=== PATIENT | female | born 1945 | race Caucasian/White ===

== ENCOUNTER 2019-05-04 11:49 | Inpatient (IN) ==
--- NOTE | 2019-05-04 13:15 | Emergency Department Note ---
Disposition Clinical Impression: Hematoma of left lower extremity Qualifiers: Encounter type: initial encounter Qualified Code(s): S80.12XA - Contusion of left lower leg, initial encounter Traumatic hematoma of left upper arm Qualifiers: Encounter type: initial encounter Qualified Code(s): S40.022A - Contusion of left upper arm, initial encounter Disposition: Admitted As Inpatient Condition: Good Referrals: Bárbara Mcneal [employer] [Primary Care Provider] - Forms: ED Satisfaction Letter, Work/School Release Time of Disposition: 15:17 General Adult HPI - General Chief complaint: ED General Medical Stated complaint: hematoma Time Seen by Provider: 05/04/19 12:12 Source: patient Limitations: no limitations Nursing Notes Reviewed: Yes Vital Signs Reviewed: Yes - History of Present Illness HPI Narrative: 74-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 Patient did not strike her head neck. Patient is not on blood thinners. Patient was seen in the wound care clinic today by the surgeon Dr. Chen. He wanted the patient admitted to the hospitalist service so he could perform debridement under anesthesia tomorrow in the operating room. We requested to do preop labs EKG chest x-ray. Patient offers no other complaints other than just feeling some slight discomfort in her left lower extremity and her left upper extremity. She denies headache, shortness breath, photophobia, fever, chills, chest pain, diarrhea, dysuria. Pain Scale: 5 - Related Data Home Medications Medication Instructions Recorded Confirmed Benzonatate [Tessalon] 100 mg PO BID 01/13/19 01/13/19 Bisoprolol Fumarate [Zebeta] 5 mg PO BID 01/13/19 01/13/19 DULoxetine [Cymbalta] 30 mg PO BID 01/13/19 01/13/19 Famotidine/Ca Carb/Mag Hydrox 1 each PO DAILY 01/13/19 01/13/19 [Pepcid Complete Tablet Chew] Fluticasone Propionate [Flovent 2 puff IH BID 01/13/19 01/13/19 Hfa] Furosemide [Lasix] 20 mg PO DAILY 01/13/19 01/13/19 Loratadine [Allergy Relief] 10 mg PO DAILY 01/13/19 01/13/19 Polyethylene Glycol 3350 [MiraLAX] 17 gm PO DAILY PRN 01/13/19 01/13/19 Vitamin D3 1,000 units PO HS 01/13/19 01/13/19 Previous Rx's Medication Instructions Recorded Collagenase Oint [Santyl] 0 gm TP DAILY #1 oint...g. 01/14/19 Gauze Bandage [Kerlix] 1 each TP DAILY #30 sponge 01/14/19 Sodium Chloride [Saline Wound Wash] 210 ml TP AD #1 spray 01/14/19 Allergies Allergy/AdvReac Type Severity Reaction Status Date / Time codeine AdvReac Headache Verified 01/12/19 15:46 meperidine [From Demerol] AdvReac Vomiting Verified 01/12/19 15:46 roses Allergy See Uncoded 01/12/19 15:46 Comments All systems ED: reviewed and negative except as stated. Musculoskeletal: Reports: myalgia Past Medical History - Past Medical History Attestation: Yes The following information was validated with the patient. Source: patient Medical history: Reports: asthma, GERD, hypertension Surgical history: Reports: appendectomy, cholecystectomy, hysterectomy Psychiatric history: Reports: no psych history - Social History Smoking Status: Never smoker Smokeless Tobacco Status: No Alcohol use: Reports: rarely Drug use: Reports: none Physical Exam - General Limitations: no limitations General appearance: alert - Head Head exam: atraumatic, normocephalic - Eye Eye exam: Present: normal appearance, PERRL - ENT ENT exam: normal exam, normal oropharynx - Neck Neck exam: Present: normal inspection, full ROM - Chest Chest inspection: Present: normal inspection, symmetric chest wall rise - Respiratory Respiratory exam: Present: normal lung sounds bilaterally - Cardiovascular Cardiovascular exam: Present: regular rate, normal rhythm - Abdominal Exam Abdominal exam: Present: soft, Non-Tender - Extremities Exam Extremities exam: Present: normal capillary refill, other (Patient has cleaning and Curlex holding the dressings in place of her left upper extremity and left lower extremity that was just evaluated less than an hour ago by Dr. Chen in the wound care clinic. Since the patient is getting surgical debridement tomorrow we did not remove the dressings to disturb the wounds) - Expanded Lower Extremity Exam Neurovascular/Tendon exam: Present: normal capillary refill Gait: not tested/not observed - Back Exam Back exam: Present: normal inspection, full ROM - Neurological Exam Neurological exam: Present: alert, oriented X3 - Psychiatric Psychiatric exam: Present: normal affect, normal mood - Skin Skin exam: Present: warm, dry, other (Patient has a large hematoma in the left lower extremity tibial and calf region and the left upper extremity) Course - Reevaluation(s) Reevaluation #1: Patient's physical examination other than the left upper and lower extremity his baseline. Patient get preop screening labs EKG shows sinus rhythm no acute changes. Meal tray being ordered. We will then contact the hospitalist admit the patient with surgical consultation by Dr. Chen. Time: 13:32 Reevaluation #2: Patient's ED workup is complete. CBC chemistry panel within normal limits. Urinalysis essentially negative coags at baseline. Discussed case with the hospitalist who accepted patient for admission. They asked for seat K which I added. Orders were placed. Patient was so informed. Awaiting admission. Time: 15:15 Vital Signs Temperature 98.0 F 05/04/19 11:55 Pulse Rate 67 05/04/19 11:55 Respiratory Rate 16 05/04/19 11:55 Blood Pressure 111/72 05/04/19 11:55 O2 Sat by Pulse Oximetry 98 05/04/19 11:55 Temperature 98.0 F 05/04/19 11:55 Pulse Rate 67 05/04/19 11:55 Respiratory Rate 16 05/04/19 11:55 Blood Pressure 111/72 05/04/19 11:55 O2 Sat by Pulse Oximetry 98 05/04/19 11:55 Oxygen Delivery Oxygen Delivery Room Air Medical Decision Making - Medical Records Medical records reviewed: Yes I reviewed the patient's medical records. - Lab Data Lab results reviewed: Yes I reviewed the patient's lab results. Result diagrams: 05/04/19 13:14 05/04/19 13:14 Lab Results 05/04/19 05/04/19 05/04/19 Range/Units 13:14 13:14 13:14 WBC 8.5 (4.3-11.1) K/mcL RBC 3.50 L (3.82-4.97) M/mcL Hgb 10.1 L (11.5-15.4) g/dL Hct 32.2 L (35.3-44.9) % MCV 92.0 (83.0-100.0) fL MCH 28.9 (28.0-33.3) pg MCHC 31.4 L (31.6-35.5) g/dL RDW 14.3 (11.5-14.5) % Plt Count 410 H (140-400) K/mcL MPV 9.8 (9.4-12.4) fL Immature Gran % 1.5 (0-4) % Seg Neutrophils % 72.6 % Lymphocytes % 11.4 % Monocytes % 12.4 % Eosinophils % 1.4 % Basophils % 0.7 % Neutrophils # 6.1 (1.6-8.9) K/mcL Lymphocytes # 1.0 (0.6-4.6) K/mcL Monocytes # 1.1 (0.0-1.3) K/mcL Eosinophils # 0.1 (0.0-0.6) K/mcL Basophils # 0.1 (0.0-0.2) K/mcL PT 13.3 H (9.4-12.1) Seconds INR 1.2 APTT 33.5 (26.0-36.0) Seconds Sodium 138 (136-145) mEq/L Potassium 3.8 (3.5-5.1) mEq/L Chloride 103 (98-107) mEq/L Carbon Dioxide 29 (23-29) mEq/L BUN 10 (8-23) mg/dL Creatinine 0.46 L (0.60-1.20) mg/dL Est GFR ( Amer) > 60 (> 60) Est GFR (Non-Af Amer) > 60 (> 60) BUN/Creatinine Ratio 22 (6-26) Glucose 94 (70-105) mg/dL Calculated Osmolality 285 (280-300) Calcium 9.3 (8.6-10.3) mg/dL Troponin I < 0.03 (< 0.04) ng/mL - Radiology Data Radiology results reviewed: Yes I reviewed the patient's radiology results. - EKG Data EKG #1 EKG attestation: Yes I reviewed and interpreted this EKG. EKG results narrative: Twelve-lead EKG interpreted without the benefit Cardiologic music library assistant shows sinus rhythm at 75 bpm. Normal [place], QRS, QT corrected. No acute ischemic changes are noted. No old EKG available for comparison.
[2019-05-04 13:29] LABS: Basophils # 0.1 K/mcL (0.0-0.2); Basophils % 0.7 %; Eosinophils # 0.1 K/mcL (0.0-0.6); Eosinophils % 1.4 %; Hematocrit 32.2 % (35.3-44.9); Hemoglobin 10.1 g/dL (11.5-15.4); Immature Granulocytes % 1.5 % (0-4); Lymphocytes % 11.4 %; Mean Corpuscular HGB Conc 31.4 g/dL (31.6-35.5); Mean Corpuscular Hemoglobin 28.9 pg (28.0-33.3); Mean Platelet Volume 9.8 fL (9.4-12.4); Monocytes # 1.1 K/mcL (0.0-1.3); Monocytes % 12.4 %; Neutrophils # 6.1 K/mcL (1.6-8.9); Platelet Count 410 K/mcL (140-400); Red Cell Distribution Width 14.3 % (11.5-14.5); Segmented Neutrophils % 72.6 %; White Blood Count 8.5 K/mcL (4.3-11.1)
[2019-05-04 13:40] LABS: INR 1.2; Prothrombin Time 13.3 Seconds (9.4-12.1)
[2019-05-04 13:43] LABS: Activated Partial Thrombo Time 33.5 Seconds (26.0-36.0)
[2019-05-04 13:54] LABS: BUN/Creatinine Ratio 22 (6-26); Blood Urea Nitrogen 10 mg/dL (8-23); Calcium 9.3 mg/dL (8.6-10.3); Carbon Dioxide 29 mEq/L (23-29); Chloride 103 mEq/L (98-107); Glucose 94 mg/dL (70-105); Osmolality,Calculated 285 (280-300); Potassium 3.8 mEq/L (3.5-5.1); Sodium 138 mEq/L (136-145); Troponin I < 0.03 ng/mL (< 0.04); eGFR For African Americans > 60 (> 60); eGFR For Non-African Americans > 60 (> 60)
[2019-05-04 15:04] LABS: Bilirubin,Urine Small (Negative); Blood,Urine Negative (Negative); Clarity,Urine Turbid (Clear); Color,Urine Dark Yellow (Yellow); Glucose,Urine (UA) Normal (Normal); Ketones,Urine Trace mg/dL (Negative); Leukocyte Esterase,Urine Moderate (Negative); Nitrite,Urine Negative (Negative); Protein,Urine Trace mg/dL (Neg-Trace); Specific Gravity,Urine 1.027 (1.010-1.025); Urobilinogen,Urine Normal (Normal)
[2019-05-04 15:08] LABS: Bacteria,Urine None Seen per hpf (None-Few); Hyaline Casts,Urine Moderate per lpf (None-Few); Squamous Epithelial Cell,Urine Many per lpf (None-Few); WBC,Urine 15-30 per hpf (0-3)
[2019-05-04 15:27] LABS: Creatine Kinase 24 Units/L (30-223)
[2019-05-04 15:31] LABS: Mucus,Urine Moderate (Few)
[2019-05-04 15:32] LABS: Calcium Oxalate Crystals,Urine Present
[2019-05-04] MEDS ORDERED: Ondansetron 4 MG/2 ML VIAL IVP PRN (16:47)
[2019-05-04] MEDS ORDERED: Naloxone 0.4 MG/ML INJ IVP PRN (16:47)
--- NOTE | 2019-05-04 17:47 | General Surg History&Physical ---
Date of Encounter: 05/05/19 Time of Encounter: 17:43 Assessment and Plan (1) Hematoma of left lower extremity Current Visit: Yes Status: Acute 74F with LLE hematoma 2/2 traumatic fall with necroti skin; needs evacuation of hematoma and adequate pain control while doing so to ensure good wound healing; NPO IVF plan for OR on 05/05 The assessment and plan as outlined above was discussed with the patient and/or family members who expressed understanding and agreement. All questions were answered. Qualifiers: Encounter type: initial encounter Qualified Code(s): S80.12XA - Contusion of left lower leg, initial encounter History of Present Illness Chief complaint: left lower extremity wound HPI: Ms. Menon is a 74 year old female well known to me with poor balance/neurological issue which makes her prone to fall presents with a new left lower extremity wound after fall with large hematoma. The swelling is decreased, but there is concern for how well her wound will heal with a retained hematoma; There is significant discomfort, but no systemic symptoms or evidence of infection. The decision was made for admission with plans for excisional debridement, evacuation of hematoma, and washout of wound. Past Med Surg Social Fam HX - Past Medical History Medical history: asthma, GERD, hypertension Additional medical history: Monoclonal protein Psychiatric history: no psych history - Past Surgical History Surgical History: appendectomy, cholecystectomy, hysterectomy Additional surgical history: thorasic surgery - Social History Smoking Status: Never smoker Smokeless Tobacco Status: No Alcohol use: rarely Drug use: none - Family History Mother Living Status: Still Living Hx Family Cardiac Disorders: Yes Hx Family GI Disorders: Yes Hx Family Musculoskeletal Disorders: Yes Hx Family Neuromuscular Disorders: Yes Father Living Status: Hx Family Cardiac Disorders: Yes Medications and Allergies Benzonatate [Tessalon] 100 mg PO BID PRN 01/13/19 [History] Bisoprolol Fumarate [Zebeta] 5 mg PO BID 01/13/19 [History] Cholecalciferol (Vitamin D3) [Vitamin D3] 1,000 units PO HS 01/13/19 [History] DULoxetine [Cymbalta] 30 mg PO BID 01/13/19 [History] Famotidine/Ca Carb/Mag Hydrox [Pepcid Complete Tablet Chew] 1 each PO QPM PRN 01/13/19 [History] Fluticasone Propionate [Flovent Hfa] 2 puff IH BID 01/13/19 [History] Furosemide [Lasix] 20 mg PO QAM 01/13/19 [History] Loratadine [Allergy Relief] 10 mg PO QPM 01/13/19 [History] Polyethylene Glycol 3350 [MiraLAX] 17 gm PO DAILY PRN 01/13/19 [History] Sodium Chloride [Saline Wound Wash] 210 ml TP AD #1 spray 01/14/19 [Rx] Fluticasone Propionate Nasal [Flonase] 2 spray NS BID 05/04/19 [History] Levalbuterol Tartrate [Levalbuterol Tartrate Hfa] 2 puff PO Q4H PRN 05/04/19 [History] Ondansetron HCl [Zofran] 4 mg PO Q6H PRN 05/04/19 [History] Allergy/AdvReac Type Severity Reaction Status Date / Time codeine AdvReac Headache Verified 01/12/19 15:46 meperidine [From Demerol] AdvReac Vomiting Verified 01/12/19 15:46 roses Allergy See Uncoded 01/12/19 15:46 Comments Review of Systems All systems PM: 12 point ROS negatie besides HPI findings; General Surgery Exam Initial Vital Signs Temp Pulse Resp BP Pulse Ox 98.0 F 67 16 111/72 98 05/04/19 11:55 05/04/19 11:55 05/04/19 11:55 05/04/19 11:55 05/04/19 11:55 - General physical appearance no distress - Eyes PERRL, normal ocular movement - ENT normocephalic - Respiratory normal expansion, normal respiratory effort - Cardiovascular Cardiovascular exam: Present: RRR - Abdomen Abdomen general surgery: Present: soft, non tender - Integumentary Integumentary general surgery: Present: warm and dry, other (hematoma; necrotic tissue, necrotic skin; ) - Neurologic Present: CN 2-12 grossly intact - Musculoskeletal Present: normal posture - Psychiatric Psychiatric general surgery: Present: A&Ox3 Results - Labs 05/05/19 02:17 05/05/19 02:17 Abnormal lab results RBC 3.50 M/mcL (3.82-4.97) L 05/04/19 13:14 Hgb 10.1 g/dL (11.5-15.4) L 05/04/19 13:14 Hct 32.2 % (35.3-44.9) L 05/04/19 13:14 MCHC 31.4 g/dL (31.6-35.5) L 05/04/19 13:14 Plt Count 410 K/mcL (140-400) H 05/04/19 13:14 PT 13.3 Seconds (9.4-12.1) H 05/04/19 13:14 0.46 mg/dL (0.60-1.20) L 05/04/19 13:14 24 Units/L (30-223) L 05/04/19 13:14 Turbid (Clear) A 05/04/19 14:32 Ur Specific [place] 1.027 (1.010-1.025) H 05/04/19 14:32 Trace mg/dL (Negative) H 05/04/19 14:32 Small (Negative) H 05/04/19 14:32 Ur Leukocyte Esterase Moderate (Negative) H 05/04/19 14:32 15-30 per hpf (0-3) H 05/04/19 14:32 Ur Squamous Epith Cells Many per lpf (None-Few) H 05/04/19 14:32 Hyaline Casts Moderate per lpf (None-Few) H 05/04/19 14:32 Moderate (Few) H 05/04/19 14:32 Diabetes panel 05/04/19 Range/Units 13:14 Sodium 138 (136-145) mEq/L Potassium 3.8 (3.5-5.1) mEq/L Chloride 103 (98-107) mEq/L Carbon Dioxide 29 (23-29) mEq/L BUN 10 (8-23) mg/dL Creatinine 0.46 L (0.60-1.20) mg/dL Glucose 94 (70-105) mg/dL Calcium 9.3 (8.6-10.3) mg/dL Calcium panel 05/04/19 Range/Units 13:14 Calcium 9.3 (8.6-10.3) mg/dL Pituitary panel 05/04/19 Range/Units 13:14 Sodium 138 (136-145) mEq/L Potassium 3.8 (3.5-5.1) mEq/L Chloride 103 (98-107) mEq/L Carbon Dioxide 29 (23-29) mEq/L BUN 10 (8-23) mg/dL Creatinine 0.46 L (0.60-1.20) mg/dL Glucose 94 (70-105) mg/dL Calcium 9.3 (8.6-10.3) mg/dL Adrenal panel 05/04/19 Range/Units 13:14 Sodium 138 (136-145) mEq/L Potassium 3.8 (3.5-5.1) mEq/L Chloride 103 (98-107) mEq/L Carbon Dioxide 29 (23-29) mEq/L BUN 10 (8-23) mg/dL Creatinine 0.46 L (0.60-1.20) mg/dL Glucose 94 (70-105) mg/dL Calcium 9.3 (8.6-10.3) mg/dL All other labs normal.
--- NOTE | 2019-05-04 17:49 | Internal Med History&Physical ---
Date of Encounter: 05/04/19 Time of Encounter: 17:42 Internal Medicine - H&P: HPI Chief complaint: Falls hematoma to left leg Admitted From: Emergency Dept Plans for Post Hospital Care: Home History of present illness: Ms. Menon is a 74 year old female past medical history of monoclonal antibody deficiency- follows hematology and neurology at [facility] as well as hypertension GERD asthma and PVCs. Patient has been experiencing falls sustained hematoma on her left upper extremity and her left lower extremity. She did not strike her head or losing consciousness she is not on any blood thinners. She has frequent falls due to neuropathy. She was seen in the wound care clinic today and Dr. Estrella advised to be admitted to the hospital in order to perform debridement under anesthesia tomorrow and operating room. Patient states that she uses walker Rollator and a scooter to get around. She is also being established with physical therapy. We will obtain preop labs EKG chest x-ray. She does have a cardiac history she states she did have PVCs and takes beta teresa -her asthma is well-controlled her surgical cardiac risks index is 0. She is currently hemodynamically stable at this time Past Med Surg Social Fam HX - Past Medical History Medical history: asthma, GERD, hypertension Additional medical history: Monoclonal protein Psychiatric history: no psych history - Past Surgical History Surgical History: appendectomy, cholecystectomy, hysterectomy Additional surgical history: thorasic surgery - Social History Smoking Status: Never smoker Smokeless Tobacco Status: No Alcohol use: rarely Drug use: none - Family History Mother Living Status: Still Living Hx Family Cardiac Disorders: Yes Hx Family GI Disorders: Yes Hx Family Musculoskeletal Disorders: Yes Hx Family Neuromuscular Disorders: Yes Father Living Status: Hx Family Cardiac Disorders: Yes Internal Medicine - H&P: Meds Benzonatate [Tessalon] 100 mg PO BID 01/13/19 [History] Bisoprolol Fumarate [Zebeta] 5 mg PO BID 01/13/19 [History] DULoxetine [Cymbalta] 30 mg PO BID 01/13/19 [History] Famotidine/Ca Carb/Mag Hydrox [Pepcid Complete Tablet Chew] 1 each PO DAILY 01/13/19 [History] Fluticasone Propionate [Flovent Hfa] 2 puff IH BID 01/13/19 [History] Furosemide [Lasix] 20 mg PO DAILY 01/13/19 [History] Loratadine [Allergy Relief] 10 mg PO DAILY 01/13/19 [History] Polyethylene Glycol 3350 [MiraLAX] 17 gm PO DAILY PRN 01/13/19 [History] Vitamin D3 1,000 units PO HS 01/13/19 [History] Gauze Bandage [Kerlix] 1 each TP DAILY #30 sponge 01/14/19 [Rx] Sodium Chloride [Saline Wound Wash] 210 ml TP AD #1 spray 01/14/19 [Rx] Allergy/AdvReac Type Severity Reaction Status Date / Time codeine AdvReac Headache Verified 01/12/19 15:46 meperidine [From Demerol] AdvReac Vomiting Verified 01/12/19 15:46 roses Allergy See Uncoded 01/12/19 15:46 Comments All Systems PM: A 10-system review of systems was performed and is negative for pertinent findings except as documented above in the HPI. - Constitutional Constitutional: no chills, no fever(s), no night sweats - EENT Eyes: no change in vision, no discharge, no pain, no photophobia Ears: no ear discharge, no ear pain, no tinnitus Nose, mouth and throat: no dysphagia, no nasal discharge, no neck pain, no sore throat - Cardiovascular Cardiovascular ROS IM: no chest pain, no diaphoresis, no dyspnea, no lightheadedness, no palpitations, no syncope - Respiratory Respiratory: no cough, no dyspnea, no wheezing, no excessive phlegm production - Gastrointestinal Gastrointestinal: no abdominal pain, no diarrhea, no hematemesis, no hematochezia, no melena, no nausea, no vomiting - Genitourinary Genitourinary: no change in urinary stream, no dysuria, no flank pain, no chun turia - Musculoskeletal Musculoskeletal ROS IM: numbness, no tingling - Integumentary Integumentary IM: new lesions, non-healing lesions - Neurological Neurological ROS: frequent falls, numbness - Hematologic/Lymphatic Hematologic/Lymphatic: no easy bruising - Constitutional Vitals: Temp Pulse Resp BP Pulse Ox 98.0 F 80 21 123/52 99 05/04/19 11:55 05/04/19 16:12 05/04/19 16:12 05/04/19 16:12 05/04/19 16:12 General appearance: Present: A&O X 3, obese Exam: . - Head Head exam: Present: atraumatic, normocephalic - Eye Eye exam: Present: PERRL, conjuntiva pink, sclera anicteric Pupils: Present: PERRL - Neck Neck exam general surgery: Present: supple, trachea midline. Absent: ly mphadenopathy - Respiratory Respiratory exam: Present: CTAB. Absent: accessory muscle use, rales, rhonchi, wheezes - Cardiovascular Cardiovascular exam: Present: RRR, +S1, +S2. Absent: diastolic murmur, gallop, rubs, systolic murmur - GI/Abdominal GI/Abdominal exam: Present: normal bowel sounds, soft, no peritoneal signs. Absent: distended, tenderness - Extremities Exam Extremities exam: Present: warm, radial pulses palpable and symmetrical. Absent: calf tenderness, cyanotic, pedal edema - Neurological Exam Neurological exam: Present: CN II-XII intact, oriented X3, no focal deficits. Absent: pronater drift, facial droop, speech deficit - Skin Skin exam: Present: dry, intact Additional comments: Patient has a large open wound with hematoma to left lower leg and knee, dressing intact also a large open wound -with granulated skin to left arm Internal Med - H&P Results - Labs CBC & Chem 7: 05/04/19 13:14 05/04/19 13:14 Labs: Short CBC 05/04/19 Range/Units 13:14 WBC 8.5 (4.3-11.1) K/mcL Hgb 10.1 L (11.5-15.4) g/dL Hct 32.2 L (35.3-44.9) % Plt Count 410 H (140-400) K/mcL Neutrophils # 6.1 (1.6-8.9) K/mcL BMP 05/04/19 13:14 Sodium 138 Potassium 3.8 Chloride 103 Carbon Dioxide 29 BUN 10 Creatinine 0.46 L Glucose 94 Calcium 9.3 Cardiac Enzymes 05/04/19 Range/Units 13:14 Troponin I < 0.03 (< 0.04) ng/mL Urine 05/04/19 Range/Units 14:32 Urine Color Dark Yellow (Yellow) Urine Clarity Turbid A (Clear) Urine pH 6.0 (5.0-8.0) pH Units Ur Specific [place] 1.027 H (1.010-1.025) Urine Protein Trace (Neg-Trace) mg/dL Urine Glucose (UA) Normal (Normal) mg/dL - EKG Data EKG shows normal: sinus rhythm - Impressions ITS Impressions Chest X-Ray 05/04/19 12:55 IMPRESSION: 1. No acute abnormality. D/ / Jacinto Hurtado MD / Jacinto Hurtado MD Interpreting Provider: Jacinto Hurtado MD - Assessment and Plan (1) DVT prophylaxis Current Visit: Yes Status: Acute (2) Hematoma of left lower extremity Current Visit: Yes Status: Acute Assessment and plan: Patient history of neuropathy and did fall and sustained hematoma to left lower leg-was seen at wound clinic Dr. Estrella recommending surgical debridement Patient will be nothing by mouth after midnight Will obtain EKG will obtain CBC and chemistry Oxycodone for pain Dressing change per surgery Qualifiers: Encounter type: initial encounter Qualified Code(s): S80.12XA - Contusion of left lower leg, initial encounter (3) Traumatic hematoma of left upper arm Current Visit: Yes Status: Acute Assessment and plan: Patient sustained hematoma left upper arm we will continue with current dressing per surgery's recommendations Qualifiers: Encounter type: initial encounter Qualified Code(s): S40.022A - Contusion of left upper arm, initial encounter (4) Peripheral neuropathy Current Visit: No Status: Acute Assessment and plan: Patient has history of monoclonal antibody deficiency Will continue follow-up with [facility] neurology/hematology Patient states that she has home health PT will consult social media director for discharge planning Fall precautions Qualifiers: Peripheral neuropathy type: polyneuropathy, other Qualified Code(s): G62.89 - Other specified polyneuropathies (5) Frequent falls Current Visit: Yes Status: Acute Assessment and plan: Patient has been experiencing frequent falls secondary to neuropathy states that she is supposed to have home health PT Continue with fall precautions Consult PT and OT patient may require inpatient rehabilitation - Time Spent With Patient Total time spent is greater than 50% in coordination of care (as documented) at patient's floor/unit and/or counseling patient:
[2019-05-04] MEDS: BISOPROLOL FUMARATE 5 MG PO SCH (20:56)
[2019-05-05 02:50] LABS: Basophils % 0.6 %; Eosinophils # 0.2 K/mcL (0.0-0.6); Eosinophils % 2.2 %; Hematocrit 29.1 % (35.3-44.9); Hemoglobin 9.2 g/dL (11.5-15.4); Immature Granulocytes % 1.5 % (0-4); Lymphocytes # 1.2 K/mcL (0.6-4.6); Lymphocytes % 17.4 %; Mean Corpuscular HGB Conc 31.6 g/dL (31.6-35.5); Mean Corpuscular Hemoglobin 28.4 pg (28.0-33.3); Mean Corpuscular Volume 89.8 fL (83.0-100.0); Mean Platelet Volume 10.3 fL (9.4-12.4); Monocytes # 1.2 K/mcL (0.0-1.3); Monocytes % 17.1 %; Neutrophils # 4.2 K/mcL (1.6-8.9); Platelet Count 394 K/mcL (140-400); Red Blood Count 3.24 M/mcL (3.82-4.97); Red Cell Distribution Width 14.5 % (11.5-14.5); Segmented Neutrophils % 61.2 %; White Blood Count 6.8 K/mcL (4.3-11.1)
[2019-05-05 03:09] LABS: BUN/Creatinine Ratio 23 (6-26); Blood Urea Nitrogen 10 mg/dL (8-23); Calcium 9.1 mg/dL (8.6-10.3); Carbon Dioxide 26 mEq/L (23-29); Chloride 103 mEq/L (98-107); Glucose 126 mg/dL (70-105); Magnesium 1.9 mg/dL (1.6-2.6); Osmolality,Calculated 285 (280-300); Potassium 3.6 mEq/L (3.5-5.1); Sodium 137 mEq/L (136-145); eGFR For African Americans > 60 (> 60); eGFR For Non-African Americans > 60 (> 60)
[2019-05-05] MEDS ORDERED: 0.9 % Sodium Chloride 1,000 ML IVC SCH (07:00)
[2019-05-05] MEDS: BISOPROLOL FUMARATE 5 MG PO SCH (08:04)
[2019-05-05] MEDS ORDERED: Famotidine 20 MG TABLET PO PRN ×2 (08:39→17:28)
[2019-05-05] MEDS ORDERED: Levalbuterol 1 PUFF INHALER IH PRN (08:39)
[2019-05-05] MEDS ORDERED: SODIUM CHLORIDE TP SCH (08:45)
[2019-05-05] MEDS ORDERED: [UNRECOGNIZED DRUG - OTHER] TP SCH (08:45)
[2019-05-05] MEDS ORDERED: GAUZE BANDAGE TP SCH (09:00)
[2019-05-05] MEDS ORDERED: Pantoprazole 40 MG VIAL IVP SCH (09:00)
[2019-05-05] MEDS ORDERED: Fluticasone Propionate Nasal 50 MCG/SPRAY BOTTLE NS SCH (09:00)
[2019-05-05] MEDS ORDERED: Loratadine 10 MG TABLET PO SCH (09:00)
[2019-05-05] MEDS ORDERED: Furosemide 20 MG TABLET PO SCH (09:00)
--- NOTE | 2019-05-05 11:41 | Internal Med Progress Note ---
Hospitalist Progress Note - Encounter Date of Encounter: 05/05/19 Time of Encounter: 11:41 - Subjective Interval History: Pt seen and examined in the room. She reported mild pain on the left upper and lower extremities after suffering from a fall from home. - Exam Vitals: Temp Pulse Resp BP Pulse Ox 98.1 F 86 16 138/72 96 05/05/19 10:39 05/05/19 10:39 05/05/19 10:39 05/05/19 10:39 05/05/19 10:39 Exam: PHYSICAL EXAMINATION: GENERAL APPEARANCE: The patient is alert, oriented and in no acute distress. HEENT: Head is normocephalic. The sinuses are nontender. Pupils are equal and reactive. The nares are patent. Oropharynx clear without lesions. NECK: Supple without lymphadenopathy. HEART: Regular rate and rhythm. LUNGS: No crackles or wheezes are heard. ABDOMEN: Soft, nontender, nondistended with good bowel sounds heard. Inguinal area is normal. EXTREMITIES: left forear and left lower leg were covered with dressing. NEUROLOGICAL: Gross nonfocal. SKIN: Warm and dry without any rash. - Assessment and Plan (1) Peripheral neuropathy Current Visit: No Status: Acute Assessment and Plan: Patient has history of monoclonal antibody deficiency Will continue follow-up with [facility] neurology/hematology Patient states that she has home health PT Consult social services analyst for discharge planning Fall precautions (2) Hematoma of left lower extremity Current Visit: Yes Status: Acute Assessment and Plan: Patient history of neuropathy and did fall and sustained hematoma to left lower leg-was seen at wound clinic Dr. Estrella recommending surgical debridement Dressing change per surgery (3) Traumatic hematoma of left upper arm Current Visit: Yes Status: Acute Assessment and Plan: Patient sustained hematoma left upper arm. we will continue with current dressing per surgery's recommendations. (4) DVT prophylaxis Current Visit: Yes Status: Acute Assessment and Plan: SCDs. (5) Frequent falls Current Visit: Yes Status: Acute Assessment and Plan: Patient has been experiencing frequent falls secondary to neuropathy states that she is supposed to have home health PT Continue with fall precautions Consult PT and OT patient may require inpatient rehabilitation - Time Spent with Patient Total time spent is greater than 50% in coordination of care (as documented) at patient's floor/unit and/or counseling patient: Greater than 35 minutes Plan of Care Discussed with: patient Internal Medicine: Result - Labs CBC & Chem 7: 05/05/19 02:17 05/05/19 02:17 Labs: Short CBC 05/04/19 05/05/19 Range/Units 13:14 02:17 WBC 8.5 6.8 (4.3-11.1) K/mcL Hgb 10.1 L 9.2 L (11.5-15.4) g/dL Hct 32.2 L 29.1 L (35.3-44.9) % Plt Count 410 H 394 (140-400) K/mcL Neutrophils # 6.1 4.2 (1.6-8.9) K/mcL BMP 05/04/19 05/05/19 13:14 02:17 Sodium 138 137 Potassium 3.8 3.6 Chloride 103 103 Carbon Dioxide 29 26 BUN 10 10 Creatinine 0.46 L 0.44 L Glucose 94 126 H Calcium 9.3 9.1 Cardiac Enzymes 05/04/19 Range/Units 13:14 Troponin I < 0.03 (< 0.04) ng/mL Urine 05/04/19 Range/Units 14:32 Urine Color Dark Yellow (Yellow) Urine Clarity Turbid A (Clear) Urine pH 6.0 (5.0-8.0) pH Units Ur Specific [place] 1.027 H (1.010-1.025) Urine Protein Trace (Neg-Trace) mg/dL Urine Glucose (UA) Normal (Normal) mg/dL - ABG Interpretation ABG results: PT/INR, D-dimer PT 13.3 Seconds (9.4-12.1) H 05/04/19 13:14 - Impressions Impressions Chest X-Ray 05/04/19 12:55 IMPRESSION: 1. No acute abnormality. D/ / Jacinto Hurtado MD / Jacinto Hurtado MD Interpreting Provider: Jacinto Hurtado MD Consult Discharge Plan - Plan Referrals: Bárbara Mcneal CNP [Primary Care Provider] - 05/10/19 10:45 am () Denzel Chen MD [Non-Partnered Physician] - 05/11/19 (Our office will call with an appointment time.) (1) Peripheral neuropathy Qualifiers: Peripheral neuropathy type: polyneuropathy, other Qualified Code(s): G62.89 - Other specified polyneuropathies (2) Hematoma of left lower extremity Qualifiers: Encounter type: initial encounter Qualified Code(s): S80.12XA - Contusion of left lower leg, initial encounter (3) Traumatic hematoma of left upper arm Qualifiers: Encounter type: initial encounter Qualified Code(s): S40.022A - Contusion of left upper arm, initial encounter
--- NOTE | 2019-05-05 12:48 | Electrocardiograph Report ---
[address] [address] Test Date: 2019-05-04 Pat Name: Brooklynn Menon Department: 113 Room: 3B Gender: F Managed Care Liaison: : 1945 Requested By: Phyllis Huber Order Number: [id number] Reading MD: Laila Castellon Measurements Intervals [place] Rate: 76 P: 99 DC: 164 QRS: 2 QRSD: 99 T: 27 QT: 403 QTc: 433 Interpretive Statements SINUS RHYTHM Electronically Signed On 05-05-2019 12:46:24 EDT by Laila Castellon
--- NOTE | 2019-05-05 14:09 | Anesthesia Evaluation PreOp ---
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: Other (peripheral neuropathy) Other Medical History: Other (monoclonal antibody defic) Anesthesia History: Past Anesthesia (appy, guy, ALEX, Thoracic), Problems (slow to awaken) Alcohol Use: rarely Drug use: none Medications and Allergies Benzonatate [Tessalon] 100 mg PO BID PRN 01/13/19 [History] Bisoprolol Fumarate [Zebeta] 5 mg PO BID 01/13/19 [History] Cholecalciferol (Vitamin D3) [Vitamin D3] 1,000 units PO HS 01/13/19 [History] DULoxetine [Cymbalta] 30 mg PO BID 01/13/19 [History] Famotidine/Ca Carb/Mag Hydrox [Pepcid Complete Tablet Chew] 1 each PO QPM PRN 01/13/19 [History] Fluticasone Propionate [Flovent Hfa] 2 puff IH BID 01/13/19 [History] Furosemide [Lasix] 20 mg PO QAM 01/13/19 [History] Loratadine [Allergy Relief] 10 mg PO QPM 01/13/19 [History] Polyethylene Glycol 3350 [MiraLAX] 17 gm PO DAILY PRN 01/13/19 [History] Sodium Chloride [Saline Wound Wash] 210 ml TP AD #1 spray 01/14/19 [Rx] Fluticasone Propionate Nasal [Flonase] 2 spray NS BID 05/04/19 [History] Levalbuterol Tartrate [Levalbuterol Tartrate Hfa] 2 puff PO Q4H PRN 05/04/19 [History] Ondansetron HCl [Zofran] 4 mg PO Q6H PRN 05/04/19 [History] Allergy/AdvReac Type Severity Reaction Status Date / Time codeine AdvReac Headache Verified 01/12/19 15:46 meperidine [From Demerol] AdvReac Vomiting Verified 01/12/19 15:46 roses Allergy See Uncoded 01/12/19 15:46 Comments - Meds/Allergy Pre-op Review Medications Reviewed: Yes Allergies Reviewed: Yes Beta Blockers on Current Med List: No Anesthesia Results - Labs 05/05/19 02:17 05/05/19 02:17 Anesthesia Exam Selected Entries 05/05/19 10:39 Temperature 98.1 F Pulse Rate 86 Respiratory Rate 16 Blood Pressure 138/72 O2 Sat by Pulse Oximetry 96 Oxygen Delivery Method Room Air Weight: 118kg - HEENT Pupil (Motor): EOMI Mallampati: II Teeth: Normal Oral Opening: Greater than 3 - CHANGE CONTROL ANALYST LOC: Oriented CHANGE CONTROL ANALYST Motor: Normal RUE, Normal LUE, Normal RLE, Normal LLE, Normal Face CHANGE CONTROL ANALYST Sensory: Normal: RUE, LUE, RLE, LLE, Face - Cardiac Rhythm: Regular Murmur: None - Pulmonary Breath Sounds: bilateral Clear Respiratory Effort: Symmetrical Anesthesia Assess/Plan ASA Score: 3 Level of consciousness: Cooperative, Oriented Anesthetic Plan: General Monitoring Plan: Standard Monitors Recovery Plan: PACU
[2019-05-05] MEDS ORDERED: *HR* Propofol 200 MG/20 ML VIAL IVP ONE (14:48)
[2019-05-05] MEDS ORDERED: *HR* FentaNYL (PF) 100 MCG/2 ML VIAL ONE (14:48)
[2019-05-05] MEDS ORDERED: Ondansetron 4 MG/2 ML VIAL ONE (14:49)
[2019-05-05] MEDS ORDERED: Dexamethasone 4 MG/ML VIAL ONE (14:49)
[2019-05-05] MEDS ORDERED: *HR* Succinylcholine 200 MG/10 ML VIAL IVP ONE (14:49)
[2019-05-05] MEDS ORDERED: Lidocaine -MPF 2% 2 ML VIAL ONE (14:49)
--- NOTE | 2019-05-05 15:07 | Anesthesia Evaluation PreOp ---
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: Other (peripheral neuropathy) Other Medical History: GERD, Other (obesity BMI=44.6) Anesthesia History: Past Anesthesia (hysterectomy), Problems (slow to awake) Alcohol Use: rarely Drug use: none Medications and Allergies Benzonatate [Tessalon] 100 mg PO BID PRN 01/13/19 [History] Bisoprolol Fumarate [Zebeta] 5 mg PO BID 01/13/19 [History] Cholecalciferol (Vitamin D3) [Vitamin D3] 1,000 units PO HS 01/13/19 [History] DULoxetine [Cymbalta] 30 mg PO BID 01/13/19 [History] Famotidine/Ca Carb/Mag Hydrox [Pepcid Complete Tablet Chew] 1 each PO QPM PRN 01/13/19 [History] Fluticasone Propionate [Flovent Hfa] 2 puff IH BID 01/13/19 [History] Furosemide [Lasix] 20 mg PO QAM 01/13/19 [History] Loratadine [Allergy Relief] 10 mg PO QPM 01/13/19 [History] Polyethylene Glycol 3350 [MiraLAX] 17 gm PO DAILY PRN 01/13/19 [History] Sodium Chloride [Saline Wound Wash] 210 ml TP AD #1 spray 01/14/19 [Rx] Fluticasone Propionate Nasal [Flonase] 2 spray NS BID 05/04/19 [History] Levalbuterol Tartrate [Levalbuterol Tartrate Hfa] 2 puff PO Q4H PRN 05/04/19 [History] Ondansetron HCl [Zofran] 4 mg PO Q6H PRN 05/04/19 [History] Allergy/AdvReac Type Severity Reaction Status Date / Time codeine AdvReac Headache Verified 01/12/19 15:46 meperidine [From Demerol] AdvReac Vomiting Verified 01/12/19 15:46 roses Allergy See Uncoded 01/12/19 15:46 Comments - Meds/Allergy Pre-op Review Medications Reviewed: Yes Allergies Reviewed: Yes Beta Blockers on Current Med List: Yes If Beta Blockers taken, Date/Time (Last Dose taken): 05/04/2019 at 0800 Anesthesia Results - Labs 05/05/19 02:17 05/05/19 02:17 - Imaging EKG: report reviewed (05/04/2019 SINUS RHYTHM) Additional studies: 08/04/2018 Echo Impressions: LVEF 60%. Normal left ventricular diastolic function. Normal right ventricular structure and function. Moderately dilated left atrium. Trace tricuspid regurgitation. Mild pulmonary hypertension. Anesthesia Exam Vital Signs/O2 Sat, Most Current Temp Pulse Resp BP Pulse Ox 98.1 F 86 16 138/72 96 05/05/19 10:39 05/05/19 10:39 05/05/19 10:39 05/05/19 10:39 05/05/19 10:39 Height: 5'4''/1.63m Weight: 259 lbs/117.8 kg NPO (# of Hours): 8 Pain Scale: 0 Pain Scale Used: Numeric (1 - 10) - HEENT Pupil (Motor): EOMI Mallampati: II Teeth: Normal Oral Opening: Greater than 3 - RUBBER GOODS ASSEMBLER LOC: Oriented RUBBER GOODS ASSEMBLER Motor: Normal RUE, Normal LUE, Normal RLE, Normal LLE, Normal Face RUBBER GOODS ASSEMBLER Sensory: Normal: Face, Deficit: RUE, LUE, RLE, LLE - Cardiac Rhythm: Regular Murmur: None - Pulmonary Breath Sounds: bilateral Clear Respiratory Effort: Symmetrical Anesthesia Assess/Plan ASA Score: 3 Level of consciousness: Cooperative, Oriented, Tranquil Anesthetic Plan: General Monitoring Plan: Standard Monitors Recovery Plan: PACU
[2019-05-05] MEDS ORDERED: Clindamycin 600 MG/50 ML 600 MG/50 ML IV.SOLN IVPB ONE (15:21)
--- NOTE | 2019-05-05 16:48 | Anesthesia Evaluation Post Op ---
Date of Encounter: 05/05/19 Time of Encounter: 16:47 - Vital Signs Vital Signs: Vital Signs/O2 Sat, Most Current Temp Pulse Resp BP Pulse Ox 97.4 F L 85 16 114/53 94 05/05/19 16:14 05/05/19 16:44 05/05/19 16:44 05/05/19 16:44 05/05/19 16:44 - Lungs Lungs: Clear Ascult./Percussion - Airway Airway: Non-obstructed - Cardiovascular Regular Rate - Mental Status Mental Status: Alert & Oriented, Answers Appropriately - Pain Pain Scale: 3 Pain Scale used: Numeric (1 - 10) - Nausea Vomiting Nausea Vomiting: Not Present - Hydration Hydration: NPO, Has not voided - Discharge PostOp Status: Transfer Patient to floor
[2019-05-05] MEDS ORDERED: Ondansetron 4 MG/2 ML VIAL IVP PRN (17:28)
[2019-05-05] MEDS ORDERED: Naloxone 0.4 MG/ML INJ IVP PRN (17:28)
--- NOTE | 2019-05-05 17:30 | Operative Note ---
Date of procedure: 05/05/19 Pre-op diagnosis: left lower extremity wound Post-op diagnosis: same Procedure: evacuation of hematoma of left lower extremity wound washout of left lower extremity wound Implants: none Complications: none Anesthesia: MAC Surgeon: Denzel Chen Was there an billing assistant present: No Estimated blood loss (cc): 2 Specimen: none Condition: stable Disposition: PACU Procedure in Detail: 74F s/p mechanical fall with subsequent trauma to left lower extremity, hematoma and skin necrosis. Due to delay in wound healing the decision was made to take the patient to the OR to assist in wound healing. patient was brought into the operating room suite. Placed in the supine position. MAC anesthesia was utilized. Preoperative antibiotics were given. A timeout was held identifying correct patient, pathology, procedure, and physician. I started by excising some of the necrotic tissue on the anterior aspect of the left lower extremity. There is a wound on the anterior aspect of the left lower extremity which measured about 4cm x 3cm in size, superficial in nature. I then found a plane within the subcutaneous tissue along the lateral aspect of the left lower extremity where the hematoma was located and I suctioned and manually evacuated the hematoma. The cavity was approximately 8cm x 1cm, x 1cm in size. I then washed the wound with 3L of saline. The wound was then packed with 1/4 strength dakin's solution kerlix. This concluded the procedure and the patient was escorted to PACU in stable condition.
[2019-05-05] MEDS: Patient Taking Own Medication 1 EACH TP SCH (17:40)
--- NOTE | 2019-05-05 17:42 | General Surgery Progress Note ---
Date of Encounter: 05/05/19 Time of Encounter: 17:37 - Assessment and Plan (1) Hematoma of left lower extremity Current Visit: Yes Status: Acute 74F with left lower extremity wound, hematoma that needs to be cleaned and evacuated respectively; now s/p washout and evacuation of hematoma; dressing management: beginning on 05/05 pack wound with kerlix dressing wet with dakin's solution (fluff, not stuff); xerofor gauze on anterior aspect of the left lower extremity wound, dry guaze on the areas packed, wrap with kerlix; appreciate evaluation by PT/OT in light of recent falls diet as tolerated will continue to follow Qualifiers: Encounter type: initial encounter Qualified Code(s): S80.12XA - Contusion of left lower leg, initial encounter Subjective Patient reports: no new complaints Objective Vital Signs - Last 8 Hours Temp Pulse Resp BP Pulse Ox 05/05/19 17:34 85 20 106/68 94 05/05/19 17:03 98.3 F 83 20 102/66 93 05/05/19 16:44 85 16 114/53 94 05/05/19 16:34 88 18 111/63 94 05/05/19 16:24 92 18 119/60 98 05/05/19 16:14 97.4 F L 90 16 116/68 98 05/05/19 10:39 98.1 F 86 16 138/72 96 Intake and Output 05/05/19 05/05/19 05/05/19 07:59 15:59 23:59 Intake Total 220 / 220 Output Total Balance / 219 - Intake: IV Fluids 220 / 220 0.9 % Sodium Chloride 1,000 ML 220 / 220 @ 50 mls/hr IVC .Q20H LASHON Rx#: [id number] Output: Estimated Blood Loss Other: # Voids 1 Weight 117.8 kg Patient Weight 05/05/19 23:59 Weight 117.8 kg - General physical appearance no distress - Respiratory normal expansion, normal respiratory effort - Cardiovascular Cardiovascular exam: Present: RRR - Abdomen Abdomen: Present: soft - Integumentary other (obvious wound to LLE with necrotic skin and underlying hematoma) - Neurologic CN 2-12 grossly intact - Psychiatric oriented to time, oriented to person - Labs 05/05/19 02:17 05/05/19 02:17 Diabetes panel 05/05/19 Range/Units 02:17 Sodium 137 (136-145) mEq/L Potassium 3.6 (3.5-5.1) mEq/L Chloride 103 (98-107) mEq/L Carbon Dioxide 26 (23-29) mEq/L BUN 10 (8-23) mg/dL Creatinine 0.44 L (0.60-1.20) mg/dL Glucose 126 H (70-105) mg/dL Calcium 9.1 (8.6-10.3) mg/dL Calcium panel 05/05/19 Range/Units 02:17 Calcium 9.1 (8.6-10.3) mg/dL Pituitary panel 05/05/19 Range/Units 02:17 Sodium 137 (136-145) mEq/L Potassium 3.6 (3.5-5.1) mEq/L Chloride 103 (98-107) mEq/L Carbon Dioxide 26 (23-29) mEq/L BUN 10 (8-23) mg/dL Creatinine 0.44 L (0.60-1.20) mg/dL Glucose 126 H (70-105) mg/dL Calcium 9.1 (8.6-10.3) mg/dL Adrenal panel 05/05/19 Range/Units 02:17 Sodium 137 (136-145) mEq/L Potassium 3.6 (3.5-5.1) mEq/L Chloride 103 (98-107) mEq/L Carbon Dioxide 26 (23-29) mEq/L BUN 10 (8-23) mg/dL Creatinine 0.44 L (0.60-1.20) mg/dL Glucose 126 H (70-105) mg/dL Calcium 9.1 (8.6-10.3) mg/dL Consult Discharge Plan - Plan Referrals: Bárbara Mcneal CNP [Primary Care Provider] - 05/10/19 10:45 am () Denzel Chen MD [Non-Partnered Physician] - 05/11/19 (Our office will call with an appointment time.)
[2019-05-05] MEDS: *HR* Enoxaparin 40 MG/0.4 ML SYRINGE SQ SCH (17:46)
--- NOTE | 2019-05-05 18:22 | Electrocardiograph Report ---
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
[2019-05-05] MEDS ORDERED: *HR* Enoxaparin 40 MG/0.4 ML SYRINGE SQ SCH (19:00)
[2019-05-05] MEDS: Fluticasone Propionate Nasal 50 MCG/SPRAY BOTTLE NS SCH (20:14)
[2019-05-05] MEDS: Cholecalciferol (D-3) 1,000 UNIT TABLET PO SCH (20:14)
[2019-05-05] MEDS: Patient Taking Own Medication 1 EACH PO SCH (20:16)
[2019-05-05] MEDS ORDERED: Cholecalciferol (D-3) 1,000 UNIT TABLET PO SCH (21:00)
[2019-05-06 08:04] LABS: Hematocrit 29.9 % (35.3-44.9); Hemoglobin 9.3 g/dL (11.5-15.4); Mean Corpuscular HGB Conc 31.1 g/dL (31.6-35.5); Mean Corpuscular Hemoglobin 28.2 pg (28.0-33.3); Mean Corpuscular Volume 90.6 fL (83.0-100.0); Mean Platelet Volume 10.5 fL (9.4-12.4); Platelet Count 409 K/mcL (140-400); White Blood Count 7.6 K/mcL (4.3-11.1)
[2019-05-06] MEDS: Furosemide 20 MG TABLET PO SCH (08:05)
[2019-05-06] MEDS: Loratadine 10 MG TABLET PO SCH (08:05)
[2019-05-06 08:11] LABS: BUN/Creatinine Ratio 22 (6-26); Blood Urea Nitrogen 10 mg/dL (8-23); Carbon Dioxide 27 mEq/L (23-29); Chloride 105 mEq/L (98-107); Glucose 124 mg/dL (70-105); Osmolality,Calculated 284 (280-300); Sodium 137 mEq/L (136-145); eGFR For African Americans > 60 (> 60); eGFR For Non-African Americans > 60 (> 60)
[2019-05-06] MEDS: Pantoprazole 40 MG VIAL IVP SCH (08:54)
[2019-05-06] MEDS: Patient Taking Own Medication 1 EACH PO SCH ×2 (09:04→20:25)
[2019-05-06] MEDS: Fluticasone Propionate Nasal 50 MCG/SPRAY BOTTLE NS SCH ×2 (09:04→20:23)
--- NOTE | 2019-05-06 09:21 | Internal Med Progress Note ---
Hospitalist Progress Note - Encounter Date of Encounter: 05/06/19 Time of Encounter: 09:19 - Subjective Interval History: Pt seen and examined in the room. Feels good this morning after hematoma was evacuated. Denies pain or drainage at the left leg. Less pain on the left upper arm. No fever, chills, or night sweats overnight. - Exam Vitals: Temp Pulse Resp BP Pulse Ox 97.6 F 95 16 116/61 94 05/06/19 07:20 05/06/19 07:20 05/06/19 07:20 05/06/19 07:20 05/06/19 08:14 Exam: PHYSICAL EXAMINATION: GENERAL APPEARANCE: The patient is alert, oriented and in no acute distress. HEENT: Head is normocephalic. The sinuses are nontender. Pupils are equal and reactive. The nares are patent. Oropharynx clear without lesions. NECK: Supple without lymphadenopathy. HEART: Regular rate and rhythm. LUNGS: No crackles or wheezes are heard. ABDOMEN: Soft, nontender, nondistended with good bowel sounds heard. Inguinal area is normal. EXTREMITIES: left forear and left lower leg were covered with dressing. NEUROLOGICAL: Gross nonfocal. SKIN: Warm and dry without any rash. - Assessment and Plan (1) Peripheral neuropathy Current Visit: No Status: Acute Assessment and Plan: Patient has history of monoclonal antibody deficiency Will continue follow-up with [facility] neurology/hematology Patient states that she has home health PT Consult social director for discharge planning. PT/OT consult. Fall precautions (2) Hematoma of left lower extremity Current Visit: Yes Status: Acute Assessment and Plan: s/p left leg hematima evacuation. Dressing change instruction per surgery. Wound care consult. (3) Traumatic hematoma of left upper arm Current Visit: Yes Status: Acute Assessment and Plan: Patient sustained hematoma left upper arm. we will continue with current dressing per surgery's recommendations. wound care consult. (4) DVT prophylaxis Current Visit: Yes Status: Acute Assessment and Plan: SCDs. (5) Frequent falls Current Visit: Yes Status: Acute Assessment and Plan: Patient has been experiencing frequent falls secondary to neuropathy states that she is supposed to have home health PT Continue with fall precautions Consult PT and OT patient may require inpatient rehabilitation - Time Spent with Patient Total time spent is greater than 50% in coordination of care (as documented) at patient's floor/unit and/or counseling patient: Greater than 35 minutes Plan of Care Discussed with: patient Internal Medicine: Result - Labs CBC & Chem 7: 05/06/19 07:26 05/06/19 07:26 Labs: Short CBC 05/06/19 Range/Units 07:26 WBC 7.6 (4.3-11.1) K/mcL Hgb 9.3 L (11.5-15.4) g/dL Hct 29.9 L (35.3-44.9) % Plt Count 409 H (140-400) K/mcL BMP 05/06/19 07:26 Sodium 137 Potassium 4.0 Chloride 105 Carbon Dioxide 27 BUN 10 Creatinine 0.46 L Glucose 124 H Calcium 9.0 - ABG Interpretation ABG results: PT/INR, D-dimer PT 13.3 Seconds (9.4-12.1) H 05/04/19 13:14 Consult Discharge Plan - Plan Referrals: Bárbara Mcneal CNP [Primary Care Provider] - 05/10/19 10:45 am () Denzel Chen MD [Non-Partnered Physician] - 05/11/19 (Our office will call with an appointment time.) Sita Teague [Advanced Practice Nurse] - 06/07/19 2:20 pm (1) Peripheral neuropathy Qualifiers: Peripheral neuropathy type: polyneuropathy, other Qualified Code(s): G62.89 - Other specified polyneuropathies (2) Hematoma of left lower extremity Qualifiers: Encounter type: initial encounter Qualified Code(s): S80.12XA - Contusion of left lower leg, initial encounter (3) Traumatic hematoma of left upper arm Qualifiers: Encounter type: initial encounter Qualified Code(s): S40.022A - Contusion of left upper arm, initial encounter
--- NOTE | 2019-05-06 10:28 | General Surgery Progress Note ---
Date of Encounter: 05/06/19 Time of Encounter: 10:26 - Assessment and Plan (1) Hematoma of left lower extremity Current Visit: Yes Status: Acute 74F with left lower extremity wound, hematoma that needs to be cleaned and evacuated respectively; POD#1 s/p washout and evacuation of hematoma; dressing management: beginning on 05/05 pack wound with kerlix dressing wet with dakin's solution (fluff, not stuff); xerofor gauze on anterior aspect of the left lower extremity wound, dry guaze on the areas packed, wrap with kerlix; appreciate evaluation by PT/OT in light of recent falls diet as tolerated general surgery will sign off, but we are available for any further questions or concerns; please have patient follow up in my wound clinic 1-2 weeks after discharge. Qualifiers: Encounter type: initial encounter Qualified Code(s): S80.12XA - Contusion of left lower leg, initial encounter Subjective Patient reports: no new complaints Objective Vital Signs - Last 8 Hours Temp Pulse Resp BP Pulse Ox 05/06/19 08:14 94 05/06/19 07:20 97.6 F 95 16 116/61 94 05/06/19 02:40 97.8 F 98 16 115/66 91 Intake and Output 05/05/19 05/06/19 05/06/19 23:59 07:59 15:59 Output Total Balance - Output: Estimated Blood Loss Other: # Voids 1 Weight 117 kg Patient Weight 05/06/19 23:59 Weight 117 kg - General physical appearance no distress - Respiratory normal expansion, normal respiratory effort - Cardiovascular Cardiovascular exam: Present: RRR - Integumentary other (dressing in place; dry, intact; mild shadowing) - Psychiatric oriented to time, oriented to person, oriented to place - Labs 05/06/19 07:26 05/06/19 07:26 Diabetes panel 05/06/19 Range/Units 07:26 Sodium 137 (136-145) mEq/L Potassium 4.0 (3.5-5.1) mEq/L Chloride 105 (98-107) mEq/L Carbon Dioxide 27 (23-29) mEq/L BUN 10 (8-23) mg/dL Creatinine 0.46 L (0.60-1.20) mg/dL Glucose 124 H (70-105) mg/dL Calcium 9.0 (8.6-10.3) mg/dL Calcium panel 05/06/19 Range/Units 07:26 Calcium 9.0 (8.6-10.3) mg/dL Pituitary panel 05/06/19 Range/Units 07:26 Sodium 137 (136-145) mEq/L Potassium 4.0 (3.5-5.1) mEq/L Chloride 105 (98-107) mEq/L Carbon Dioxide 27 (23-29) mEq/L BUN 10 (8-23) mg/dL Creatinine 0.46 L (0.60-1.20) mg/dL Glucose 124 H (70-105) mg/dL Calcium 9.0 (8.6-10.3) mg/dL Adrenal panel 05/06/19 Range/Units 07:26 Sodium 137 (136-145) mEq/L Potassium 4.0 (3.5-5.1) mEq/L Chloride 105 (98-107) mEq/L Carbon Dioxide 27 (23-29) mEq/L BUN 10 (8-23) mg/dL Creatinine 0.46 L (0.60-1.20) mg/dL Glucose 124 H (70-105) mg/dL Calcium 9.0 (8.6-10.3) mg/dL Consult Discharge Plan - Plan Referrals: Bárbara Mcneal CNP [Primary Care Provider] - 05/10/19 10:45 am () Denzel Chen MD [Non-Partnered Physician] - 05/11/19 (Our office will call with an appointment time.) Sita Teague [Advanced Practice Nurse] - 06/07/19 2:20 pm
[2019-05-06] MEDS: *HR* Enoxaparin 40 MG/0.4 ML SYRINGE SQ SCH (18:15)
[2019-05-06] MEDS: Patient Taking Own Medication 1 EACH TP SCH (20:00)
[2019-05-06] MEDS: Cholecalciferol (D-3) 1,000 UNIT TABLET PO SCH (20:23)
[2019-05-07 04:50] LABS: Hematocrit 29.2 % (35.3-44.9); Hemoglobin 9.1 g/dL (11.5-15.4); Mean Corpuscular HGB Conc 31.2 g/dL (31.6-35.5); Mean Corpuscular Hemoglobin 28.2 pg (28.0-33.3); Mean Corpuscular Volume 90.4 fL (83.0-100.0); Mean Platelet Volume 10.5 fL (9.4-12.4); Platelet Count 413 K/mcL (140-400); Red Blood Count 3.23 M/mcL (3.82-4.97); Red Cell Distribution Width 14.5 % (11.5-14.5); White Blood Count 8.1 K/mcL (4.3-11.1)
[2019-05-07 05:10] LABS: BUN/Creatinine Ratio 22 (6-26); Blood Urea Nitrogen 13 mg/dL (8-23); Calcium 8.9 mg/dL (8.6-10.3); Carbon Dioxide 27 mEq/L (23-29); Chloride 105 mEq/L (98-107); Glucose 111 mg/dL (70-105); Osmolality,Calculated 291 (280-300); Potassium 3.3 mEq/L (3.5-5.1); Sodium 140 mEq/L (136-145); eGFR For African Americans > 60 (> 60); eGFR For Non-African Americans > 60 (> 60)
--- NOTE | 2019-05-07 10:15 | Internal Med Progress Note ---
Hospitalist Progress Note - Encounter Date of Encounter: 05/07/19 Time of Encounter: 10:13 - Subjective Interval History: Pt seen and examined in the room. Feels good this morning after hematoma was evacuated. Denies pain or drainage at the left leg. Less pain on the left upper arm. No fever, chills, or night sweats overnight. - Exam Vitals: Temp Pulse Resp BP Pulse Ox 97.9 F 95 20 125/74 95 05/07/19 08:35 05/07/19 08:35 05/07/19 08:35 05/07/19 08:35 05/07/19 08:35 Exam: PHYSICAL EXAMINATION: GENERAL APPEARANCE: The patient is alert, oriented and in no acute distress. HEENT: Head is normocephalic. The sinuses are nontender. Pupils are equal and reactive. The nares are patent. Oropharynx clear without lesions. NECK: Supple without lymphadenopathy. HEART: Regular rate and rhythm. LUNGS: No crackles or wheezes are heard. ABDOMEN: Soft, nontender, nondistended with good bowel sounds heard. Inguinal area is normal. EXTREMITIES: left forear and left lower leg were covered with dressing. NEUROLOGICAL: Gross nonfocal. SKIN: Warm and dry without any rash. - Assessment and Plan (1) Hematoma of left lower extremity Current Visit: Yes Status: Acute Assessment and Plan: s/p left leg hematima evacuation. Dressing change instruction per surgery. Wound care following. Appreciated general surgery help. (2) Peripheral neuropathy Current Visit: No Status: Acute Assessment and Plan: Patient has history of monoclonal antibody deficiency Will continue follow-up with [facility] neurology/hematology Patient states that she has home health PT Consult social media developer for discharge planning. PT/OT consult. Fall precautions (3) Traumatic hematoma of left upper arm Current Visit: Yes Status: Acute Assessment and Plan: Patient sustained hematoma left upper arm. we will continue with current dressing per surgery's recommendations. wound care following. (4) Frequent falls Current Visit: Yes Status: Acute Assessment and Plan: Patient has been experiencing frequent falls secondary to neuropathy states that she is supposed to have home health PT Continue with fall precautions PT/OT recommended ECF, we will arrange. (5) DVT prophylaxis Current Visit: Yes Status: Acute Assessment and Plan: SCDs. - Time Spent with Patient Total time spent is greater than 50% in coordination of care (as documented) at patient's floor/unit and/or counseling patient: Greater than 35 minutes Plan of Care Discussed with: patient Internal Medicine: Result - Labs CBC & Chem 7: 05/07/19 03:40 05/07/19 03:40 Labs: Short CBC 05/07/19 Range/Units 03:40 WBC 8.1 (4.3-11.1) K/mcL Hgb 9.1 L (11.5-15.4) g/dL Hct 29.2 L (35.3-44.9) % Plt Count 413 H (140-400) K/mcL BMP 05/07/19 03:40 Sodium 140 Potassium 3.3 L Chloride 105 Carbon Dioxide 27 BUN 13 Creatinine 0.60 Glucose 111 H Calcium 8.9 - ABG Interpretation ABG results: PT/INR, D-dimer PT 13.3 Seconds (9.4-12.1) H 05/04/19 13:14 Consult Discharge Plan - Plan Referrals: Bárbara Mcneal CNP [Primary Care Provider] - 05/10/19 10:45 am () Denzel Chen MD [Non-Partnered Physician] - 05/11/19 (Our office will call with an appointment time.) Sita Teague [Advanced Practice Nurse] - 06/07/19 2:20 pm ____ (1) Hematoma of left lower extremity Qualifiers: Encounter type: initial encounter Qualified Code(s): S80.12XA - Contusion of left lower leg, initial encounter (2) Peripheral neuropathy Qualifiers: Peripheral neuropathy type: polyneuropathy, other Qualified Code(s): G62.89 - Other specified polyneuropathies (3) Traumatic hematoma of left upper arm Qualifiers: Encounter type: initial encounter Qualified Code(s): S40.022A - Contusion of left upper arm, initial encounter
[2019-05-07] MEDS: Loratadine 10 MG TABLET PO SCH (10:25)
[2019-05-07] MEDS: Furosemide 20 MG TABLET PO SCH (10:25)
[2019-05-07] MEDS: Fluticasone Propionate Nasal 50 MCG/SPRAY BOTTLE NS SCH ×2 (10:28→20:22)
[2019-05-07] MEDS: Patient Taking Own Medication 1 EACH PO SCH ×2 (10:28→20:23)
[2019-05-07] MEDS: Pantoprazole 40 MG VIAL IVP SCH (11:47)
[2019-05-07] MEDS: *HR* Enoxaparin 40 MG/0.4 ML SYRINGE SQ SCH (18:19)
[2019-05-07] MEDS: Patient Taking Own Medication 1 EACH TP SCH (19:13)
[2019-05-07] MEDS: Cholecalciferol (D-3) 1,000 UNIT TABLET PO SCH (20:22)
[2019-05-07] MEDS: Acetaminophen 325 MG TABLET PO PRN (21:49)
[2019-05-08 03:18] LABS: Hematocrit 29.1 % (35.3-44.9); Mean Corpuscular HGB Conc 30.9 g/dL (31.6-35.5); Mean Corpuscular Hemoglobin 28.6 pg (28.0-33.3); Mean Corpuscular Volume 92.4 fL (83.0-100.0); Mean Platelet Volume 10.4 fL (9.4-12.4); Platelet Count 403 K/mcL (140-400); Red Blood Count 3.15 M/mcL (3.82-4.97); Red Cell Distribution Width 14.6 % (11.5-14.5); White Blood Count 7.5 K/mcL (4.3-11.1)
[2019-05-08 03:30] LABS: BUN/Creatinine Ratio 22 (6-26); Blood Urea Nitrogen 13 mg/dL (8-23); Calcium 8.7 mg/dL (8.6-10.3); Carbon Dioxide 28 mEq/L (23-29); Chloride 105 mEq/L (98-107); Glucose 98 mg/dL (70-105); Osmolality,Calculated 292 (280-300); Potassium 3.7 mEq/L (3.5-5.1); Sodium 141 mEq/L (136-145); eGFR For African Americans > 60 (> 60); eGFR For Non-African Americans > 60 (> 60)
--- NOTE | 2019-05-08 09:02 | Internal Med Progress Note ---
Hospitalist Progress Note - Encounter Date of Encounter: 05/08/19 Time of Encounter: 09:01 - Subjective Interval History: Patient seen and examined in the room. She feels better, dressing of left leg has been changed yesterday, currently tried any intact. Left arm dressing intact, patient reported decreased size of hematoma. - Exam Vitals: Temp Pulse Resp BP Pulse Ox 97.6 F 92 16 123/72 96 05/08/19 07:19 05/08/19 07:19 05/08/19 07:38 05/08/19 07:05/08/19 07:38 Exam: PHYSICAL EXAMINATION: GENERAL APPEARANCE: The patient is alert, oriented and in no acute distress. HEENT: Head is normocephalic. The sinuses are nontender. Pupils are equal and reactive. The nares are patent. Oropharynx clear without lesions. NECK: Supple without lymphadenopathy. HEART: Regular rate and rhythm. LUNGS: No crackles or wheezes are heard. ABDOMEN: Soft, nontender, nondistended with good bowel sounds heard. Inguinal area is normal. EXTREMITIES: left forear and left lower leg were covered with dressing. NEUROLOGICAL: Gross nonfocal. SKIN: Warm and dry without any rash. - Assessment and Plan (1) Hematoma of left lower extremity Current Visit: Yes Status: Acute Assessment and Plan: s/p left leg hematima evacuation. Dressing change instruction per surgery. Wound care following. (2) Peripheral neuropathy Current Visit: No Status: Acute Assessment and Plan: Patient has history of monoclonal antibody deficiency Will continue follow-up with [facility] neurology/hematology PT/OT recommended ECF placement, patient will be discharged to [facility] this Friday. Fall precautions (3) Traumatic hematoma of left upper arm Current Visit: Yes Status: Acute Assessment and Plan: Patient sustained hematoma left upper arm. continue with current dressing per surgery's recommendations. wound care following. (4) Frequent falls Current Visit: Yes Status: Acute Assessment and Plan: Patient has been experiencing frequent falls secondary to neuropathy states that she is supposed to have home health PT Continue with fall precautions PT/OT recommended ECF, we will discharge to [facility] this coming Friday. (5) DVT prophylaxis Current Visit: Yes Status: Acute Assessment and Plan: SCDs. - Time Spent with Patient Total time spent is greater than 50% in coordination of care (as documented) at patient's floor/unit and/or counseling patient: Greater than 35 minutes Plan of Care Discussed with: patient Internal Medicine: Result - Labs CBC & Chem 7: 05/08/19 02:33 05/08/19 02:33 Labs: Short CBC 05/08/19 Range/Units 02:33 WBC 7.5 (4.3-11.1) K/mcL Hgb 9.0 L (11.5-15.4) g/dL Hct 29.1 L (35.3-44.9) % Plt Count 403 H (140-400) K/mcL BMP 05/08/19 02:33 Sodium 141 Potassium 3.7 Chloride 105 Carbon Dioxide 28 BUN 13 Creatinine 0.58 L Glucose 98 Calcium 8.7 - ABG Interpretation ABG results: PT/INR, D-dimer PT 13.3 Seconds (9.4-12.1) H 05/04/19 13:14 Consult Discharge Plan - Plan Referrals: Bárbara Mcneal CNP [Primary Care Provider] - 05/10/19 10:45 am () Denzel Chen MD [Non-Partnered Physician] - 05/11/19 (Our office will call with an appointment time.) Sita Teague [Advanced Practice Nurse] - 06/07/19 2:20 pm ___ (1) Hematoma of left lower extremity Qualifiers: Encounter type: initial encounter Qualified Code(s): S80.12XA - Contusion of left lower leg, initial encounter (2) Peripheral neuropathy Qualifiers: Peripheral neuropathy type: polyneuropathy, other Qualified Code(s): G62.89 - Other specified polyneuropathies (3) Traumatic hematoma of left upper arm Qualifiers: Encounter type: initial encounter Qualified Code(s): S40.022A - Contusion of left upper arm, initial encounter
[2019-05-08] MEDS: Loratadine 10 MG TABLET PO SCH (09:55)
[2019-05-08] MEDS: Pantoprazole 40 MG VIAL IVP SCH (09:55)
[2019-05-08] MEDS: Furosemide 20 MG TABLET PO SCH (09:55)
[2019-05-08] MEDS: Fluticasone Propionate Nasal 50 MCG/SPRAY BOTTLE NS SCH ×2 (09:55→20:44)
[2019-05-08] MEDS: Patient Taking Own Medication 1 EACH PO SCH ×2 (09:55→20:38)
[2019-05-08] MEDS: Acetaminophen 325 MG TABLET PO PRN (14:37)
[2019-05-08] MEDS: Patient Taking Own Medication 1 EACH TP SCH (17:39)
[2019-05-08] MEDS: *HR* Enoxaparin 40 MG/0.4 ML SYRINGE SQ SCH (17:39)
[2019-05-08] MEDS: Cholecalciferol (D-3) 1,000 UNIT TABLET PO SCH (20:44)
[2019-05-09] MEDS: Acetaminophen 325 MG TABLET PO PRN (00:26)
[2019-05-09 01:22] LABS: Basophils % 0.6 %; Eosinophils # 0.1 K/mcL (0.0-0.6); Eosinophils % 1.7 %; Hematocrit 29.8 % (35.3-44.9); Hemoglobin 9.1 g/dL (11.5-15.4); Immature Granulocytes % 4.1 % (0-4); Lymphocytes # 1.2 K/mcL (0.6-4.6); Lymphocytes % 18.4 %; Mean Corpuscular HGB Conc 30.5 g/dL (31.6-35.5); Mean Corpuscular Hemoglobin 28.3 pg (28.0-33.3); Mean Corpuscular Volume 92.8 fL (83.0-100.0); Mean Platelet Volume 10.1 fL (9.4-12.4); Monocytes # 1.2 K/mcL (0.0-1.3); Monocytes % 18.9 %; Neutrophils # 3.6 K/mcL (1.6-8.9); Platelet Count 414 K/mcL (140-400); Red Blood Count 3.21 M/mcL (3.82-4.97); Red Cell Distribution Width 14.5 % (11.5-14.5); Segmented Neutrophils % 56.3 %; White Blood Count 6.4 K/mcL (4.3-11.1)
[2019-05-09 01:43] LABS: BUN/Creatinine Ratio 23 (6-26); Blood Urea Nitrogen 12 mg/dL (8-23); Calcium 8.8 mg/dL (8.6-10.3); Carbon Dioxide 27 mEq/L (23-29); Chloride 105 mEq/L (98-107); Glucose 118 mg/dL (70-105); Osmolality,Calculated 291 (280-300); Platelet Estimate Increased (Normal); Potassium 3.4 mEq/L (3.5-5.1); Sodium 140 mEq/L (136-145); eGFR For African Americans > 60 (> 60); eGFR For Non-African Americans > 60 (> 60)
[2019-05-09 07:53] VITALS: BP 153/74
--- NOTE | 2019-05-09 08:34 | Physician Discharge Referral ---
ExtendedCare Referral Info Provider in Charge after Transfer: Other Institutional Level of Care: Skilled - Diagnosis (1) Hematoma of left lower extremity Priority: Primary Status: Acute (2) Peripheral neuropathy Priority: Secondary Status: Acute (3) Traumatic hematoma of left upper arm Priority: Primary Status: Acute (4) Frequent falls Priority: Primary Status: Acute (5) DVT prophylaxis Priority: Primary Status: Acute Prognosis: Fair Aware of Diagnosis: Patient Aware of Prognosis: Patient - Transfer Medications Home Medications: Benzonatate [Tessalon] 100 mg PO BID PRN 01/13/19 [History] Bisoprolol Fumarate [Zebeta] 5 mg PO BID 01/13/19 [History] Cholecalciferol (Vitamin D3) [Vitamin D3] 1,000 units PO HS 01/13/19 [History] DULoxetine [Cymbalta] 30 mg PO BID 01/13/19 [History] Famotidine/Ca Carb/Mag Hydrox [Pepcid Complete Tablet Chew] 1 each PO QPM PRN 01/13/19 [History] Fluticasone Propionate [Flovent Hfa] 2 puff IH BID 01/13/19 [History] Furosemide [Lasix] 20 mg PO QAM 01/13/19 [History] Loratadine [Allergy Relief] 10 mg PO QPM 01/13/19 [History] Polyethylene Glycol 3350 [MiraLAX] 17 gm PO DAILY PRN 01/13/19 [History] Sodium Chloride [Saline Wound Wash] 210 ml TP AD #1 spray 01/14/19 [Rx] Fluticasone Propionate Nasal [Flonase] 2 spray NS BID 05/04/19 [History] Levalbuterol Tartrate [Levalbuterol Tartrate Hfa] 2 puff PO Q4H PRN 05/04/19 [History] Ondansetron HCl [Zofran] 4 mg PO Q6H PRN 05/04/19 [History] Allergies/Adverse Reactions: Allergy/AdvReac Type Severity Reaction Status Date / Time codeine AdvReac Headache Verified 01/12/19 15:46 meperidine [From Demerol] AdvReac Vomiting Verified 01/12/19 15:46 roses Allergy See Uncoded 01/12/19 15:46 Comments - Respiratory Orders Smoking Cessation: Smoking cessation has been advised. For more information, call the [place] Tobacco Quit Line at 8-404-NJRQ-NOW. - Advance Directives Code Status: Full Code - Rehabiliation Orders Rehab Orders: Evaluation for Physical Therapy, Evaluation for Occupational Therapy - Diet Orders Regular CERTIFICATION: I certify that the transfer of the above named patient to an Extended Care Facility is necessary for the continuing treatment of the diagnosis listed. The above information is true and accurate reflection of patient's current condition. Confidential - Redisclosure prohibited without a patient's written consent.
--- NOTE | 2019-05-09 08:37 | Discharge Summary ---
- NOTES TO OUTPATIENT PROVIDER Notes to Outpatient Provider: f/u with Surgery within 2-3 weeks. Date of Encounter: 05/09/19 Time of Encounter: 08:34 - Discharge Diagnosis (1) Hematoma of left lower extremity Priority: Primary Status: Acute Qualifiers: Encounter type: initial encounter Qualified Code(s): S80.12XA - Contusion of left lower leg, initial encounter (2) Peripheral neuropathy Priority: Secondary Status: Acute Qualifiers: Peripheral neuropathy type: polyneuropathy, other Qualified Code(s): G62.89 - Other specified polyneuropathies (3) Traumatic hematoma of left upper arm Priority: Primary Status: Acute Qualifiers: Encounter type: initial encounter Qualified Code(s): S40.022A - Contusion of left upper arm, initial encounter (4) Frequent falls Priority: Primary Status: Acute (5) DVT prophylaxis Priority: Primary Status: Acute Hospital course: Ms. Menon is a 74 year old female past medical history of monoclonal antibody deficiency- follows hematology and neurology at [facility] as well as hypertension GERD asthma and PVCs. Patient has been experiencing falls sustained hematoma on her left upper extremity and her left lower extremity. She did not strike her head or losing consciousness she is not on any blood thinners. She has frequent falls due to neuropathy. She was seen in the wound care clinic today and Dr. Estrella advised to be admitted to the hospital in order to perform debridement under anesthesia. X-ray of right leg showed no fractures. Patient underwent right lower leg hematoma evacuation by general surgery on the second hospital day. Wound care was consulted. She continued to do better in the rest of the hospital day, PT/OT recommended inpatient rehabilitation. Patient will be discharged to [facility] today. Dressing change to the right lower leg will be continued at the new facility, she will follow up with general surgery at the wound clinic of this hospital within 2-3 weeks. Discharge discussed with: patient Time spent discussing smoking cessation with patient: more than 10 minutes - Time Spent with Patient Total time spent providing and/or coordinating discharge services: Time spent: Greater than 30 minutes - Discharge Medications Prescriptions: Continued Loratadine [Allergy Relief] 10 mg PO QPM Famotidine/Ca Carb/Mag Hydrox [Pepcid Complete Tablet Chew] 1 each PO QPM PRN PRN Reason: Heartburn Furosemide [Lasix] 20 mg PO QAM Fluticasone Propionate [Flovent Hfa] 2 puff IH BID Benzonatate [Tessalon] 100 mg PO BID PRN PRN Reason: Cough Cholecalciferol (Vitamin D3) [Vitamin D3] 1,000 units PO HS Polyethylene Glycol 3350 [MiraLAX] 17 gm PO DAILY PRN PRN Reason: Constipation Bisoprolol Fumarate [Zebeta] 5 mg PO BID DULoxetine [Cymbalta] 30 mg PO BID Sodium Chloride [Saline Wound Wash] 210 ml TP AD #1 spray Fluticasone Propionate Nasal [Flonase] 2 spray NS BID Levalbuterol Tartrate [Levalbuterol Tartrate Hfa] 2 puff PO Q4H PRN PRN Reason: Shortness Of Breath Ondansetron HCl [Zofran] 4 mg PO Q6H PRN PRN Reason: Nausea Home Medications: Benzonatate [Tessalon] 100 mg PO BID PRN 01/13/19 [History] Bisoprolol Fumarate [Zebeta] 5 mg PO BID 01/13/19 [History] Cholecalciferol (Vitamin D3) [Vitamin D3] 1,000 units PO HS 01/13/19 [History] DULoxetine [Cymbalta] 30 mg PO BID 01/13/19 [History] Famotidine/Ca Carb/Mag Hydrox [Pepcid Complete Tablet Chew] 1 each PO QPM PRN 01/13/19 [History] Fluticasone Propionate [Flovent Hfa] 2 puff IH BID 01/13/19 [History] Furosemide [Lasix] 20 mg PO QAM 01/13/19 [History] Loratadine [Allergy Relief] 10 mg PO QPM 01/13/19 [History] Polyethylene Glycol 3350 [MiraLAX] 17 gm PO DAILY PRN 01/13/19 [History] Sodium Chloride [Saline Wound Wash] 210 ml TP AD #1 spray 01/14/19 [Rx] Fluticasone Propionate Nasal [Flonase] 2 spray NS BID 05/04/19 [History] Levalbuterol Tartrate [Levalbuterol Tartrate Hfa] 2 puff PO Q4H PRN 05/04/19 [History] Ondansetron HCl [Zofran] 4 mg PO Q6H PRN 05/04/19 [History] Allergies/Adverse Reactions: Allergy/AdvReac Type Severity Reaction Status Date / Time codeine AdvReac Headache Verified 01/12/19 15:46 meperidine [From Demerol] AdvReac Vomiting Verified 01/12/19 15:46 roses Allergy See Uncoded 01/12/19 15:46 Comments Date of admission: 05/06/19 09:25 Primary care physician: Bárbara Mcneal CNP Consults: 05/04/19 15:11 Consult to Surgery [CONS] Stat Consulting Provider: John Son Reason for Consult: LEFT LE HEMATOMA Time Notified: 15:13 Call Completed: No 05/04/19 17:10 Consult to Site Technician [CONS] Routine Reason for SW Consult: home health for dressing changes 05/04/19 18:02 Consult to Occupational Therapy [CONS] Routine Comment: Evaluate, develop and implement POC Reason for Consult: frequent falls Does patient have active BEDREST order?: No Is patient medically & hemodynamically stable?: Yes Patient assessed for mobility or mobilized this visit?: No Consult to Physical Therapy [CONS] Routine Comment: Evaluate, develop and implement POC Reason for Consult: falls Does patient have active BEDREST order?: No Is patient medically & hemodynamically stable?: Yes Patient assessed for mobility or mobilized this visit?: No 05/06/19 09:18 Consult to Wound Care [CONS] Routine Reason for Consult: dressing change Call Completed: Yes Anticipated date of discharge: 05/09/19 - Constitutional Vitals: Temp Pulse Resp BP Pulse Ox 97.5 F L 119 18 153/74 96 05/09/19 07:40 05/09/19 07:40 05/09/19 07:50 05/09/19 07:40 05/09/19 07:50 General appearance: Present: A&O X 3, obese Exam: PHYSICAL EXAMINATION: GENERAL APPEARANCE: The patient is alert, oriented and in no acute distress. HEENT: Head is normocephalic. The sinuses are nontender. Pupils are equal and reactive. The nares are patent. Oropharynx clear without lesions. NECK: Supple without lymphadenopathy. HEART: Regular rate and rhythm. LUNGS: No crackles or wheezes are heard. ABDOMEN: Soft, nontender, nondistended with good bowel sounds heard. Inguinal area is normal. EXTREMITIES: left forear and left lower leg were covered with dressing. NEUROLOGICAL: Gross nonfocal. SKIN: Warm and dry without any rash. - Patient Status Disposition: Transfer Inpatient Rehab Fac Condition: Good Functional capacity at discharge: independent ambulation Overall status at discharge: patient is progressing back to baseline - Discharge Instructions Follow Up With: Bárbara Mcneal CNP [Primary Care Provider] - 05/10/19 10:45 am () Denzel Chen MD [Non-Partnered Physician] - 05/11/19 (Our office will call with an appointment time.) Sita Teague [Advanced Practice Nurse] - 06/07/19 2:20 pm Additional Instructions: Wound dressing change instructions: Pack wound with kerlix dressing wet with dakin's solution (fluff, not stuff); xerofor gauze on anterior aspect of the left lower extremity wound, dry guaze on the areas packed, wrap with kerlix. Change dressing daily and PRN. - Diet and Activity Activity: increase activity as tolerated Diet: low fat, low cholesterol, low salt diet
[2019-05-09] MEDS: Fluticasone Propionate Nasal 50 MCG/SPRAY BOTTLE NS SCH (08:55)
[2019-05-09] MEDS: Patient Taking Own Medication 1 EACH PO SCH (08:55)
[2019-05-09] MEDS: Loratadine 10 MG TABLET PO SCH (08:55)
[2019-05-09] MEDS: Furosemide 20 MG TABLET PO SCH (08:55)
== END 2019-05-09 11:42 | DRG 605 ==
LOC: 3BNU 11:49 → EMEROOARM 11:49 → 3BNU 16:40
PROVIDERS: ADMIT Internal Medicine Nephrology; ATTEND Internal Medicine Nephrology

== ENCOUNTER 2019-07-05 11:26 | Inpatient (IN) ==
[2019-07-05] MEDS ORDERED: Ondansetron ODT 4 MG TAB.RAPDIS SL PRN (18:11)
[2019-07-05] MEDS ORDERED: *HR* Promethazine 25 MG/ML VIAL IVP PRN (18:11)
[2019-07-05] MEDS ORDERED: *HR* HYDROcodone/Acet 5/325 mg TABLET PO PRN (18:11)
[2019-07-05] MEDS ORDERED: Naloxone 0.4 MG/ML INJ IVP PRN (18:11)
[2019-07-05] MEDS ORDERED: *HR* OxyCODONE Immed Rel 5 MG TABLET PO PRN (18:11)
[2019-07-05] MEDS ORDERED: Benzonatate 100 MG CAPSULE PO PRN (18:16)
[2019-07-05] MEDS ORDERED: NON-FORMULARY MEDICATION 1 EACH EACH (Ondansetron Hcl [Zofran] 4 MG) PO PRN (18:16)
[2019-07-05] MEDS ORDERED: Levalbuterol 1 PUFF INHALER IH PRN (18:16)
--- NOTE | 2019-07-05 18:29 | Internal Med History&Physical ---
Date of Encounter: 07/05/19 Time of Encounter: 18:27 Internal Medicine - H&P: HPI Chief complaint: Increased confusion, concern for occult infection Admitted From: Hospital to Hospital Transfer History of present illness: Ms. Menon is a 74 year old female patient with a history of hypertension, monoclonal antibody deficiency, peripheral neuropathy with episodes of frequent falls resulting in a hematoma that was treated here with evacuation by general surgery. Since then she is being managed with wound care and has had infection in this location. Most recent wound cultures were positive for Acinetobacter and staph aureus. Patient has been on Augmentin plus colistin and was being treated at every night [facility] for the past 2 months. She was noted to have worsening overall condition with poor appetite, increased episodes of confusion at night. She was also complaining of worsening pain in her right knee. Her ESR and CRP have also increased recently. As such infectious disease was consulted here and they recommended transfer to this facility for higher level of care. Patient complaining of right knee pain for the past 3 weeks. She was seen by wound care and surgery on Friday and had mild debridement done. Wound VAC was removed then. She has completed course of colistin and is currently on Augmentin alone. She denies any fevers or chills. She did have some nausea and had an episode of emesis this morning but it has since improved. She just ate dinner without any issues. No fevers or chills reported. Past Med Surg Social Fam HX - Past Medical History Medical history: asthma, GERD, hypertension, other Additional medical history: Monoclonal protein Psychiatric history: no psych history - Past Surgical History Surgical History: appendectomy, cholecystectomy, hysterectomy Additional surgical history: thorasic surgery, hematoma removed - Social History Smoking Status: Never smoker Smokeless Tobacco Status: No Alcohol use: none Drug use: none - Family History Mother Living Status: Still Living Hx Family Cardiac Disorders: Yes (Heart stents) Hx Family GI Disorders: Yes Hx Family Neuromuscular Disorders: Yes Father Living Status: Hx Family Cardiac Disorders: Yes Hx Family Cancer: Yes (Colon ca) Internal Medicine - H&P: Meds Benzonatate [Tessalon] 100 mg PO BID PRN 01/13/19 [History] Bisoprolol Fumarate [Zebeta] 5 mg PO BID 01/13/19 [History] Cholecalciferol (Vitamin D3) [Vitamin D3] 1,000 units PO HS 01/13/19 [History] DULoxetine [Cymbalta] 30 mg PO BID 01/13/19 [History] Famotidine/Ca Carb/Mag Hydrox [Pepcid Complete Tablet Chew] 1 each PO QPM PRN 01/13/19 [History] Fluticasone Propionate [Flovent Hfa] 2 puff IH BID 01/13/19 [History] Furosemide [Lasix] 20 mg PO QAM 01/13/19 [History] Loratadine [Allergy Relief] 10 mg PO QPM 01/13/19 [History] Polyethylene Glycol 3350 [MiraLAX] 17 gm PO DAILY PRN 01/13/19 [History] Sodium Chloride [Saline Wound Wash] 210 ml TP AD #1 spray 01/14/19 [Rx] Fluticasone Propionate Nasal [Flonase] 2 spray NS BID 05/04/19 [History] Levalbuterol Tartrate [Levalbuterol Tartrate Hfa] 2 puff PO Q4H PRN 05/04/19 [History] Ondansetron HCl [Zofran] 4 mg PO Q6H PRN 05/04/19 [History] Allergy/AdvReac Type Severity Reaction Status Date / Time cephalexin [From Keflex] AdvReac Diarrhea Verified 06/15/19 14:32 codeine AdvReac Headache Verified 01/12/19 15:46 meperidine [From Demerol] AdvReac Vomiting Verified 01/12/19 15:46 roses Allergy See Uncoded 01/12/19 15:46 Comments All Systems PM: A 10-system review of systems was performed and is negative for pertinent findings except as documented above in the HPI. - Constitutional Constitutional: anorexia, lethargy, malaise, no chills, no fever(s), no night sweats - EENT Eyes: no change in vision, no discharge, no pain, no photophobia Ears: no ear discharge, no ear pain, no tinnitus Nose, mouth and throat: no dysphagia, no nasal discharge, no neck pain, no sore throat - Cardiovascular Cardiovascular ROS IM: no chest pain, no diaphoresis, no dyspnea, no lightheadedness, no palpitations, no syncope - Respiratory Respiratory: no cough, no dyspnea, no wheezing, no excessive phlegm production - Gastrointestinal Gastrointestinal: no abdominal pain, no diarrhea, no hematemesis, no hematochezia, no melena, no nausea, no vomiting - Genitourinary Genitourinary: no change in urinary stream, no dysuria, no flank pain, no hematuria - Musculoskeletal Musculoskeletal ROS IM: no numbness, no tingling - Integumentary Integumentary IM: no rash, no unusual bruising - Neurological Neurological ROS: no confusion, no convulsions, no focal weakness, no numbness, no tingling, no tremor(s) - Hematologic/Lymphatic Hematologic/Lymphatic: no easy bruising - Constitutional Vitals: Temp Pulse Resp BP Pulse Ox 97.5 F L 83 16 165/62 98 07/05/19 13:56 07/05/19 13:56 07/05/19 13:56 07/05/19 13:56 07/05/19 13:56 Exam: General: Patient is alert, no acute distress, oriented x 3 Eyes: PERRLA, EOMI, no conjunctival injection or icterus Neck: No nuchal rigidity, trachea midline ENT: Mucous membranes dry Respiratory: Good respiratory effort. Normal breath sounds. No wheezing or crackles. Cardiovascular: Regular rate and rhythm. s1 and s2 normal No clicks, rubs, gallops, or murmurs. No pedal edema Abdomen: Abdomen is soft, nontender. Bowel sounds are present Musculoskeletal: Left lower extremity bandaged from the knee to ankle. Right knee swollen more than the left with tenderness to palpation. Skin: warm, dry, intact. Neuro: Alert oriented x 3 normal cranial nerves, no focal deficits Psych: Normal affect and mood Internal Med - H&P Results - Labs Labs: Labs done today to [facility] show WBC count of 8.1, hemoglobin of 9.1, platelets of 309, ESR 119, potassium of 2.8, BU and of 15, creatinine of 1.04, CRP of 70. Her CRP was 15 and ESR was 82 on 06/28 - Impressions CT of the head was reviewed and showed no acute intracranial abnormality - Assessment and Plan (1) Complicated wound infection Current Visit: Yes Status: Acute (2) Delirium Current Visit: Yes Status: Acute (3) Frequent falls Current Visit: Yes Status: Acute (4) Hematoma of left lower extremity Current Visit: Yes Status: Acute Qualifiers: Encounter type: subsequent encounter Qualified Code(s): S80.12XD - Contusio n of left lower leg, subsequent encounter (5) HTN (hypertension) Current Visit: Yes Status: Chronic Qualifiers: Hypertension type: essential hypertension Qualified Code(s): I10 - Essential (primary) hypertension (6) Nausea Current Visit: Yes Status: Acute - Summary of Assessment and Plan Summary of Assessment and Plan: Left lower extremity wound infection: Patient has chronic left lower extremity wound following hematoma and is being managed by surgery team at the wound care clinic. Will consult surgery for evaluation here. Continue Augmentin. If pa hamidamelissa not able to tolerate Augmentin, we will change it to Unasyn. Consult infectious disease. Right knee pain: Supportive care. Pain control. Await infectious disease evaluation. Delirium/increased episodes of confusion: Monitor for signs of delirium and treat symptomatically. Head CT was done at the other facility and was found to be negative. Continue Seroquel at bedtime. Essential hypertension: Monitor blood pressure. Resume Bystolic. Frequent falls and neuropathy: Supportive care. Physical therapy. Continue home medications. Intractable nausea: Symptomatic treatment. Will place patient on Zofran plus Phenergan. DVT prophylaxis with subcutaneous Lovenox. - Time Spent With Patient Total time spent is greater than 50% in coordination of care (as documented) at patient's floor/unit and/or counseling patient:
[2019-07-05] MEDS ORDERED: SODIUM CHLORIDE TP SCH (18:30)
[2019-07-05] MEDS ORDERED: [UNRECOGNIZED DRUG - OTHER] TP SCH (18:30)
[2019-07-05] MEDS: traMADol 50 MG TABLET PO PRN (19:30)
[2019-07-05 19:45] LABS: BUN/Creatinine Ratio 14 (6-26); Blood Urea Nitrogen 15 mg/dL (8-23); Calcium 9.5 mg/dL (8.6-10.3); Carbon Dioxide 28 mEq/L (23-29); Chloride 98 mEq/L (98-107); Glucose 157 mg/dL (70-105); Osmolality,Calculated 286 (280-300); Potassium 2.8 mEq/L (3.5-5.1); Sodium 136 mEq/L (136-145); eGFR For African Americans > 60 (> 60); eGFR For Non-African Americans 52 (> 60)
[2019-07-05 20:28] LABS: Bilirubin,Urine Negative (Negative); Blood,Urine Negative (Negative); Clarity,Urine Cloudy (Clear); Color,Urine Yellow (Yellow); Glucose,Urine (UA) Normal (Normal); Ketones,Urine 15 mg/dL (Negative); Leukocyte Esterase,Urine Negative (Negative); Nitrite,Urine Negative (Negative); PH,Urine 5.5 pH Units (5.0-8.0); Protein,Urine Trace mg/dL (Neg-Trace); Specific Gravity,Urine 1.018 (1.010-1.025); Urobilinogen,Urine Normal (Normal)
[2019-07-05 20:30] LABS: Bacteria,Urine None Seen per hpf (None-Few); Hyaline Casts,Urine None Seen per lpf (None-Few); Squamous Epithelial Cell,Urine Many per lpf (None-Few)
[2019-07-05] MEDS: Cholecalciferol (D-3) 1,000 UNIT (25MCG) TABLET PO SCH (21:08)
[2019-07-05] MEDS: Fluticasone Propionate Nasal 50 MCG/SPRAY BOTTLE NS SCH (23:13)
[2019-07-06 05:00] LABS: Basophils # 0.1 K/mcL (0.0-0.2); Basophils % 0.7 %; Eosinophils # 0.2 K/mcL (0.0-0.6); Eosinophils % 2.2 %; Hematocrit 30.2 % (35.3-44.9); Hemoglobin 9.4 g/dL (11.5-15.4); Lymphocytes % 13.3 %; Mean Corpuscular HGB Conc 31.1 g/dL (31.6-35.5); Mean Corpuscular Hemoglobin 26.2 pg (28.0-33.3); Mean Corpuscular Volume 84.1 fL (83.0-100.0); Monocytes # 1.2 K/mcL (0.0-1.3); Neutrophils # 5.1 K/mcL (1.6-8.9); Platelet Count 304 K/mcL (140-400); Red Blood Count 3.59 M/mcL (3.82-4.97); Red Cell Distribution Width 14.5 % (11.5-14.5); Segmented Neutrophils % 66.8 %; White Blood Count 7.7 K/mcL (4.3-11.1)
[2019-07-06 05:07] LABS: INR 1.1
[2019-07-06 05:19] LABS: BUN/Creatinine Ratio 14 (6-26); Blood Urea Nitrogen 14 mg/dL (8-23); Calcium 9.3 mg/dL (8.6-10.3); Carbon Dioxide 25 mEq/L (23-29); Chloride 102 mEq/L (98-107); Glucose 108 mg/dL (70-105); Osmolality,Calculated 285 (280-300); Potassium 3.2 mEq/L (3.5-5.1); Sodium 137 mEq/L (136-145); eGFR For African Americans > 60 (> 60); eGFR For Non-African Americans 53 (> 60)
[2019-07-06] MEDS: Fluticasone Propionate Nasal 50 MCG/SPRAY BOTTLE NS SCH ×2 (07:53→20:18)
[2019-07-06] MEDS: Furosemide 20 MG TABLET PO SCH (07:55)
[2019-07-06] MEDS: traMADol 50 MG TABLET PO PRN ×2 (08:03→20:16)
--- NOTE | 2019-07-06 10:08 | Internal Med Progress Note ---
<Chris Nichols - Last Filed: 07/06/19 14:16> Hospitalist Progress Note - Encounter Date of Encounter: 07/06/19 Time of Encounter: 09:00 - Exam Vitals: Temp Pulse Resp BP Pulse Ox 97.3 F L 77 17 147/22 97 07/06/19 08:24 07/06/19 08:24 07/06/19 08:24 07/06/19 08:24 07/06/19 08:24 - Assessment and Plan (1) Complicated wound infection Current Visit: No Status: Acute (2) Delirium Current Visit: No Status: Acute (3) Frequent falls Current Visit: No Status: Acute (4) Hematoma of left lower extremity Current Visit: Yes Status: Chronic (5) HTN (hypertension) Current Visit: No Status: Chronic (6) Nausea Current Visit: No Status: Acute - Time Spent with Patient Total time spent is greater than 50% in coordination of care (as documented) at patient's floor/unit and/or counseling patient: Internal Medicine: Result - Labs CBC & Chem 7: 07/06/19 04:30 07/06/19 04:30 Labs: Short CBC 07/06/19 Range/Units 04:30 WBC 7.7 (4.3-11.1) K/mcL Hgb 9.4 L (11.5-15.4) g/dL Hct 30.2 L (35.3-44.9) % Plt Count 304 (140-400) K/mcL Neutrophils # 5.1 (1.6-8.9) K/mcL BMP 07/05/19 07/06/19 19:10 04:30 Sodium 136 137 Potassium 2.8 L 3.2 L Chloride 98 102 Carbon Dioxide 28 25 BUN 15 14 Creatinine 1.04 1.03 Glucose 157 H 108 H Calcium 9.5 9.3 Urine 07/05/19 Range/Units 20:24 Urine Color Yellow (Yellow) Urine Clarity Cloudy A (Clear) Urine pH 5.5 (5.0-8.0) pH Units Ur Specific [place] 1.018 (1.010-1.025) Urine Protein Trace (Neg-Trace) mg/dL Urine Glucose (UA) Normal (Normal) mg/dL - ABG Interpretation ABG results: PT/INR, D-dimer PT 12.0 Seconds (9.4-12.1) 07/06/19 04:30 - Impressions Impressions Chest X-Ray 07/05/19 18:20 IMPRESSION: No acute cardiopulmonary findings. D/ / Pita Pham MD / Pita Pham MD Interpreting Provider: Pita Pham MD Consult Discharge Plan - Plan Referrals: Bárbara Mcneal CNP [Primary Care Provider] - Denzel Chen MD [Non-Partnered Physician] - (Please schedule appt in wound care, 1-2 weeks after d/c) - Attending Attestation I saw evaluated and examined this patient and reviewed objective data including labs and my medical decision-making was reviewed with the Resident Physician, Jenny Jennings. I agree with the documented findings, disposition and treatment plan as described except to any changes set forth below. We independently had [id number] contact with the patient. Patient complaining of continued pain in right knee. Noted to have increased warmth and swelling there. We will consult orthopedics to evaluate this mo rning. Infectious disease consult in progress. Surgery has evaluated patient for her left lower extremity wound. Recommend no further intervention at this time. Continue Augmentin. Follow culture results. <Jenny Jennings I - Last Filed: 07/06/19 16:36> Hospitalist Progress Note - Encounter Date of Encounter: 07/06/19 - Subjective Interval History: 74 year old female s/p evacuation of hematoma of the left lower extremity wound and issues with wound healing that required wound VAC was on augmentin and colistin for the last 2 months due to culture which was positive for multidrug- resistant organism Acinetobacter baumanni and MSSA. today patient was seen and examined . she still complain of bilateral lower extremities pain and decrease ROM specially the right leg which was normal till sudden onset 4 days etiology not clear , patient is a febrile , denies chills nausea , vomiting , no chest pain or SOB . no headaches or weakness sensation - Exam Vitals: Temp Pulse Resp BP Pulse Ox 97.3 F L 77 17 147/22 97 07/06/19 08:24 07/06/19 08:24 07/06/19 08:24 07/06/19 08:24 07/06/19 08:24 Exam: General - Alert and oriented x 3, no acute distress and appears comfortable HEENT - Conjunctiva clear, no nasal or oral mucosal lesions/ulcerations Heme/Lymph - No cervical or supraclavicular lymph node enlargement or tenderness. No pallor. Heart - S1S2 regular in rate and rhythm without murmurs, clicks or rubs. No peripheral edema. Radial pulses equal and strong Lungs - Unlabored breathing, clear to auscultation bilaterally without wheezes or crackles; no decrease in chest expansion Extremities - Right lower extrimity swelling , redness and tender to palpate , decrease ROM , LLE : appear edematous and is wrapped Gastrointestinal - Soft, nontender, nondistended. Unable to palpate any hepatosplenomegaly Neurological - Gait normal, muscle strength 5/5 in all four extremities, sensation intact psych - normal mood and behavior - Assessment and Plan (1) Hematoma of left lower extremity Current Visit: Yes Status: Chronic Assessment and Plan: Patient has chronic left lower extremity wound infection after hematoma evacuation that developed after fall blood culture 05/26/2019 was positive for multidrug-resistant organism Acinetobacter baumanni and MSSA. 06/03/19 and was started on Keflex plus colistin. 07/06/2019 two blood cultures are ordered and are pending she is on augmentin now . after finishing her colistin course (2) Effusion, right knee Current Visit: Yes Status: Acute Assessment and Plan: patient presented with sudden right knbee pain and swelling 4 days ago cause unknown her wbc is 7.7 . blood culture is pending she is on augmentin for infectious cause coverage her uric acid level is 4.2 ID is consulted orthopedic consulted for possible need for arthrocentesis (3) Frequent falls Current Visit: No Status: Acute Assessment and Plan: this is a chronic condition , patient has frequent falls due to peripheral neuropathy (4) HTN (hypertension) Current Visit: No Status: Chronic Assessment and Plan: this is achronic condition . continue home med - Time Spent with Patient Total time spent is greater than 50% in coordination of care (as documented) at patient's floor/unit and/or counseling patient: Internal Medicine: Result - Labs CBC & Chem 7: 07/06/19 04:30 07/06/19 04:30 Labs: Short CBC 07/06/19 Range/Units 04:30 WBC 7.7 (4.3-11.1) K/mcL Hgb 9.4 L (11.5-15.4) g/dL Hct 30.2 L (35.3-44.9) % Plt Count 304 (140-400) K/mcL Neutrophils # 5.1 (1.6-8.9) K/mcL BMP 07/05/19 07/06/19 19:10 04:30 Sodium 136 137 Potassium 2.8 L 3.2 L Chloride 98 102 Carbon Dioxide 28 25 BUN 15 14 Creatinine 1.04 1.03 Glucose 157 H 108 H Calcium 9.5 9.3 Urine 07/05/19 Range/Units 20:24 Urine Color Yellow (Yellow) Urine Clarity Cloudy A (Clear) Urine pH 5.5 (5.0-8.0) pH Units Ur Specific [place] 1.018 (1.010-1.025) Urine Protein Trace (Neg-Trace) mg/dL Urine Glucose (UA) Normal (Normal) mg/dL - ABG Interpretation ABG results: PT/INR, D-dimer PT 12.0 Seconds (9.4-12.1) 07/06/19 04:30 - Impressions Impressions Chest X-Ray 07/05/19 18:20 IMPRESSION: No acute cardiopulmonary findings. D/ / Pita Pham MD / Pita Pham MD Interpreting Provider: Pita Pham MD <Chris Nichols - Last Filed: 07/06/19 14:16> (4) Hematoma of left lower extremity Qualifiers: Encounter type: subsequent encounter Qualified Code(s): S80.12XD - Contusion of left lower leg, subsequent encounter (5) HTN (hypertension) Qualifiers: Hypertension type: essential hypertension Qualified Code(s): I10 - Essential (primary) hypertension <Jenny Jennings I - Last Filed: 07/06/19 16:36> (1) Hematoma of left lower extremity Qualifiers: Encounter type: subsequent encounter Qualified Code(s): S80.12XD - Contusion of left lower leg, subsequent encounter (4) HTN (hypertension) Qualifiers: Hypertension type: essential hypertension Qualified Code(s): I10 - Essential (primary) hypertension
--- NOTE | 2019-07-06 10:11 | AcuteCare Surgery Consult Note ---
Date of Encounter: 07/06/19 Time of Encounter: 10:05 Assessment and Plan (1) Hematoma of left lower extremity Current Visit: Yes Status: Chronic LLE wound measures 12cm x4 cm x 0.5 cm. Wound beds beefy red granualtion tissue. There is no tunneling or undermining. There is no evidence for concern for infection. Current wound care is adaptic, kerlix, Landon wrap. This therapy is sufficient. No acute surgical intervention indicated. Surgery will sign off at this time. Please call or reconsult if further questions or needs arise. Follow up in wound care with Dr. Chen in 1-2 weeks after d/c Qualifiers: Encounter type: subsequent encounter Qualified Code(s): S80.12XD - Contusion of left lower leg, subsequent encounter History of Present Illness Consult date: 07/06/19 (Dr. Allie Guo) Reason for consult: wound care Requesting physician: Chris Nichols History of present illness: Brooklynn is the patient of Dr. Chen in wound care. She reports she had also been f [facility] [place] for wound care. 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 She was discharged to rehab him from that admission 2/2 neuropathy and frequent falls and followed with Dr. Chen in wound care. On 05/26/2019 it appears rehab bedside RN noting purulent drainage and tunneling on the left lower extremity wound. Cultures were ordered/collected on 05/26/2019 (by Edwin Feliz) it is unclear from documentation as to whether these cultures were obtained via topical or in the tunneling. On 05/28/[address] Chen who noted measurements of 22.8 cm x 15.1 cm x 3.1 cm and there was significant amount of serous and purulent drainage. She underwent sharp debridement on 05/28, and 06/15/2109 as well multilayer compression bandages. Cultures were obtained on 05/28/[address] Chen and were noted to be positive for Ancinobacter baumanii MDRO and staphylococcus aureus. She was started on ATBX and referred to ID. She saw BRIANNA Richardson on 06/03/2019 who recommended Colistin 300 mg IV x1 dose then 150mg IV Q12 H and Keflex 500 mg TID. Wound Vac was placed 06/07/2019 per [facility]. Her most recent wound care picture was at which time the left lower ext wound had significantly improved from previous but did require treatment. Post agreement measurements were 25.4 cm x 15 cm x 1 cm. Wound VAC was continued per [facility]. On 07/05/2019, pt was noted to have had confusion the night previous. Dr. Mcrae reached out to Dr. Mariscal regarding mental status changes, and (per record review) Dr. Mariscal felt her symptoms would more likely be caused by an occult infection. She was transferred to [facility] for further work-up. Pt reports rehab "stopped the wound vac before I came here, but I'm not sure why." Surgery has been consulted for recommendations regarding left lower extremity wound care. Past Med Surg Social Fam HX - Past Medical History Source: patient, old records reviewed Medical history: asthma, GERD, hypertension, other Additional medical history: Monoclonal protein Psychiatric history: no psych history - Past Surgical History Surgical History: appendectomy, cholecystectomy, hysterectomy Additional surgical history: thorasic surgery, hematoma removed - Social History Smoking Status: Never smoker Smokeless Tobacco Status: No Alcohol use: none Drug use: none - Family History Mother Living Status: Still Living Hx Family Cardiac Disorders: Yes (Heart stents) Hx Family GI Disorders: Yes Hx Family Neuromuscular Disorders: Yes Father Living Status: Hx Family Cardiac Disorders: Yes Hx Family Cancer: Yes (Colon ca) Medications and Allergies Benzonatate [Tessalon] 100 mg PO BID PRN 01/13/19 [History] Bisoprolol Fumarate [Zebeta] 5 mg PO BID 01/13/19 [History] Cholecalciferol (Vitamin D3) [Vitamin D3] 1,000 units PO HS 01/13/19 [History] DULoxetine [Cymbalta] 30 mg PO BID 01/13/19 [History] Famotidine/Ca Carb/Mag Hydrox [Pepcid Complete Tablet Chew] 1 each PO QPM PRN 01/13/19 [History] Fluticasone Propionate [Flovent Hfa] 2 puff IH BID 01/13/19 [History] Furosemide [Lasix] 20 mg PO QAM 01/13/19 [History] Loratadine [Allergy Relief] 10 mg PO QPM 01/13/19 [History] Polyethylene Glycol 3350 [MiraLAX] 17 gm PO DAILY PRN 01/13/19 [History] Sodium Chloride [Saline Wound Wash] 210 ml TP AD #1 spray 01/14/19 [Rx] Fluticasone Propionate Nasal [Flonase] 2 spray NS BID 05/04/19 [History] Levalbuterol Tartrate [Levalbuterol Tartrate Hfa] 2 puff PO Q4H PRN 05/04/19 [History] Ondansetron HCl [Zofran] 4 mg PO Q6H PRN 05/04/19 [History] Allergy/AdvReac Type Severity Reaction Status Date / Time cephalexin [From Keflex] AdvReac Diarrhea Verified 06/15/19 14:32 codeine AdvReac Headache Verified 01/12/19 15:46 meperidine [From Demerol] AdvReac Vomiting Verified 01/12/19 15:46 roses Allergy See Uncoded 01/12/19 15:46 Comments Review of Systems All systems PM: reviewed and no additional remarkable complaints except as stated All systems PM: The remainder of the systems were reviewed and are negative General Surgery Exam Initial Vital Signs Temp Pulse Resp BP Pulse Ox 97.5 F L 83 16 165/62 98 07/05/19 13:56 07/05/19 13:56 07/05/19 13:56 07/05/19 13:56 07/05/19 13:56 - General physical appearance no distress, moderate pain (RLE (knee)), obese - Respiratory normal expansion, normal respiratory effort - Cardiovascular Cardiovascular exam: Present: distant heart sounds - Integumentary Integumentary general surgery: Present: other (see a/p for LLE exam) - Neurologic Present: normal sensation - Psychiatric Psychiatric general surgery: Present: A&Ox3 Exam Initial Vital Signs Temp Pulse Resp BP Pulse Ox 97.5 F L 83 16 165/62 98 07/05/19 13:56 07/05/19 13:56 07/05/19 13:56 07/05/19 13:56 07/05/19 13:56 Results - Labs 07/06/19 04:30 07/06/19 04:30 Abnormal lab results RBC 3.59 M/mcL (3.82-4.97) L 07/06/19 04:30 Hgb 9.4 g/dL (11.5-15.4) L 07/06/19 04:30 Hct 30.2 % (35.3-44.9) L 07/06/19 04:30 MCH 26.2 pg (28.0-33.3) L 07/06/19 04:30 MCHC 31.1 g/dL (31.6-35.5) L 07/06/19 04:30 Potassium 3.2 mEq/L (3.5-5.1) L 07/06/19 04:30 Est GFR (Non-Af Amer) 53 (> 60) L 07/06/19 04:30 Glucose 108 mg/dL (70-105) H 07/06/19 04:30 POC Glucose 108 mg/dL (70-99) H 07/06/19 05:07 Urine Clarity Cloudy (Clear) A 07/05/19 20:24 Urine Ketones 15 mg/dL (Negative) H 07/05/19 20:24 Urine Microscopic RBC 3-5 per hpf (0-3) H 07/05/19 20:24 Urine Microscopic WBC 3-5 per hpf (0-3) H 07/05/19 20:24 Ur Squamous Epith Cells Many per lpf (None-Few) H 07/05/19 20:24 Diabetes panel 07/05/19 07/06/19 Range/Units 19:10 04:30 Sodium 136 137 (136-145) mEq/L Potassium 2.8 L 3.2 L (3.5-5.1) mEq/L Chloride 98 102 (98-107) mEq/L Carbon Dioxide 28 25 (23-29) mEq/L BUN 15 14 (8-23) mg/dL Creatinine 1.04 1.03 (0.60-1.20) mg/dL Glucose 157 H 108 H (70-105) mg/dL Calcium 9.5 9.3 (8.6-10.3) mg/dL Calcium panel 07/05/19 07/06/19 Range/Units 19:10 04:30 Calcium 9.5 9.3 (8.6-10.3) mg/dL Pituitary panel 07/05/19 07/06/19 Range/Units 19:10 04:30 Sodium 136 137 (136-145) mEq/L Potassium 2.8 L 3.2 L (3.5-5.1) mEq/L Chloride 98 102 (98-107) mEq/L Carbon Dioxide 28 25 (23-29) mEq/L BUN 15 14 (8-23) mg/dL Creatinine 1.04 1.03 (0.60-1.20) mg/dL Glucose 157 H 108 H (70-105) mg/dL Calcium 9.5 9.3 (8.6-10.3) mg/dL Adrenal panel 07/05/19 07/06/19 Range/Units 19:10 04:30 Sodium 136 137 (136-145) mEq/L Potassium 2.8 L 3.2 L (3.5-5.1) mEq/L Chloride 98 102 (98-107) mEq/L Carbon Dioxide 28 25 (23-29) mEq/L BUN 15 14 (8-23) mg/dL Creatinine 1.04 1.03 (0.60-1.20) mg/dL Glucose 157 H 108 H (70-105) mg/dL Calcium 9.5 9.3 (8.6-10.3) mg/dL All other labs normal. Consult Discharge Plan - Plan Referrals: Bárbara Mcneal CNP [Primary Care Provider] - Denzel Chen MD [Non-Partnered Physician] - (Please schedule appt in wound care, 1-2 weeks after d/c)
[2019-07-06 10:47] LABS: Uric Acid 4.2 mg/dL (2.3-7.6)
[2019-07-06] MEDS ORDERED: Bisacodyl 10 MG RECTAL SUPPOSITORY RC ONE (14:18)
--- NOTE | 2019-07-06 15:08 | Infectious Disease Consult ---
Infectious Disease-Consult - Encounter Date/Time Date of Encounter: 07/06/19 Time of Encounter: 14:54 - Data of Consult Patient: new to practice Reason for consult: "right knee swelling and tenderness" Consult date: 07/06/19 Requesting Physician: Chris Nichols MD Primary Care Provider: Bárbara Mcneal CHICKEN TENDER - HPI HPI: Patient is a 74-year-old woman who was transferred to [facility] from outside hospital 07/05/2019 to what the record states is increased confusion and concern for occult infection but when I asked the patient she states it was just because she had leukocytosis and she remembers exactly why she came here and she was not confused. We are consult at for right knee swelling and pain. Patient is 74-year-old woman with past medical history including GERD, hypertension and a recurrent fall due to peripheral neuropathy? In December of this year patient was at her mother's house and she fell and had a large hematoma right knee requiring evacuation by Dr. Chen in surgery initially on 01/13/2019 where she underwent excisional debridement of the right lower extremity wound washout of the right lower extremity wound. No cultures were obtained at that time. Patient followed up with wound care for a long time and apparently the wound healed great. On 05/05/2019 patient was taken again to the OR for evacuation of hematoma of the left lower extremity wound and washout of the left lower extremity wound. Patient had issue with wound healing and required wound VAC and dad. 05/26/2019 patient was seen by wound care and they did a swab culture which was positive for multidrug-resistant organism Acinetobacter baumanni and MSSA. A shunt was seen by us in clinic on 06/03/19 and was started on Keflex plus colistin. Patient is residing at [facility] for rehabilitation. I did receive a phone call from hospice order stating that the patient is more confused and "goofy" I was asked to make recommendations on the patient and I recommended patient comes to the emergency department for evaluation. Since admission, patient has been afebrile, no tachycardia, and no tachypnea. Chemistry reveals hypokalemia with a potassium of 2.8. BUN 15 creatinine 1.04. A urinalysis was not impressive. Patient had a chest x-ray on admission which showed no acute cardiopulmonary findings. Patient was started empirically on Augmentin were asked to evaluate the patient and make further recommendations. Currently patient laying in bed appears comfortable. No acute distress. No headache no visual changes no rhinorrhea and no sore throat. Patient denies any cough or chest pain shortness of breath. Patient had 2 episodes of vomiting she tells me but denies any abdominal pain or diarrhea or constipation. Patient denies any urinary symptoms. Patient is complaining of severe right knee pain that is sudden onset about 5 days prior to admission. - ROS Review of Systems: 10 point review of systems done, pertinent positives and negatives are mentioned in the history of present illness - Results CBC & Chem 7: 07/06/19 04:30 07/06/19 04:30 - Exam Vitals: Temp Pulse Resp BP Pulse Ox 98.3 F 87 18 131/71 93 07/06/19 14:37 07/06/19 14:37 07/06/19 14:37 07/06/19 14:37 07/06/19 14:37 Exam: GENERAL: Laying in bed, appears comfortable. HEAD: Normocephalic atraumatic EYES: PERRLA, EOMI, no conjunctival hemorrhage, sclera anicteric ENT: Mucous membranes moist, no oral thrush NECK: Supple. No meningeal signs. No masses LUNGS: Chest expanding symmetrically. Lungs sounds audible both lung patel. No wheezing, no rhonchi CV: RRR, S1S2, ABDOMEN: Soft, nontender, nondistended. Bowel sounds audible BACK: No CVA tenderness. Normal inspection. No tenderness over the spine EXTREMITY: R knee swollen but patient is obese so it's hard to ay if there is true edema. previous scar from previous surgical evacuation with obvious infection. not warm to touch. pain on passive movement LLE with a large wound measuring 12 cm 4 cm 0.5 cm it was wrapped. There is also a few scabs with no surrounding erythema drainage or purulence SKIN: Normal color. No rash. NEURO: Awake alert oriented 3. No obvious focal deficit PSYCH: Calm and appropriate. No agitation. Benzonatate [Tessalon] 100 mg PO BID PRN 01/13/19 [History] Bisoprolol Fumarate [Zebeta] 5 mg PO BID 01/13/19 [History] Cholecalciferol (Vitamin D3) [Vitamin D3] 1,000 units PO HS 01/13/19 [History] DULoxetine [Cymbalta] 30 mg PO BID 01/13/19 [History] Famotidine/Ca Carb/Mag Hydrox [Pepcid Complete Tablet Chew] 1 each PO QPM PRN 01/13/19 [History] Fluticasone Propionate [Flovent Hfa] 2 puff IH BID 01/13/19 [History] Furosemide [Lasix] 20 mg PO QAM 01/13/19 [History] Loratadine [Allergy Relief] 10 mg PO QPM 01/13/19 [History] Polyethylene Glycol 3350 [MiraLAX] 17 gm PO DAILY PRN 01/13/19 [History] Sodium Chloride [Saline Wound Wash] 210 ml TP AD #1 spray 01/14/19 [Rx] Fluticasone Propionate Nasal [Flonase] 2 spray NS BID 05/04/19 [History] Levalbuterol Tartrate [Levalbuterol Tartrate Hfa] 2 puff PO Q4H PRN 05/04/19 [History] Ondansetron HCl [Zofran] 4 mg PO Q6H PRN 05/04/19 [History] Allergy/AdvReac Type Severity Reaction Status Date / Time cephalexin [From Keflex] AdvReac Diarrhea Verified 06/15/19 14:32 codeine AdvReac Headache Verified 01/12/19 15:46 meperidine [From Demerol] AdvReac Vomiting Verified 01/12/19 15:46 roses Allergy See Uncoded 01/12/19 15:46 Comments - Assessment and Plan (1) Wound of right lower extremity Current Visit: No Status: Acute Exam is limited Status post fallDecember 2018 01/13/2019 where she underwent excisional debridement of the right lower extremity wound washout of the right lower extremity wound. No cultures were obtained at that time. Clinically there is no obvious infection but exam is limited and I am concerned because her inflammatory markers are very high ESR was 109 and it jumped up to 119. Qualifiers: Encounter type: initial encounter Qualified Code(s): S81.801A - Unspecified open wound, right lower leg, initial encounter SNOMED Code(s): 009358062, 599694636 (2) Peripheral neuropathy Current Visit: No Status: Acute Etiology not clear Qualifiers: Peripheral neuropathy type: polyneuropathy, other Qualified Code(s): G62.89 - Other specified polyneuropathies SNOMED Code(s): 258345648 (3) Hematoma of left lower extremity Current Visit: Yes Status: Chronic 05/05/2019 s/p evacuation of hematoma of the left lower extremity wound and washout of the left lower extremity wound. issue with wound healing and required wound VAC 05/26/2019 swab culture which was positive for multidrug-resistant organism Acinetobacter baumanni and MSSA. 06/03/19 and was started on Keflex plus colistin. Qualifiers: Encounter type: subsequent encounter Qualified Code(s): S80.12XD - Contusion of left lower leg, subsequent encounter SNOMED Code(s): 155360275 (4) Delirium Current Visit: No Status: Acute etiology not clear no signs of aseptic or viral meningitis/encephalitis could be due to underlying infection? also could be due to colistin? seems resolved now SNOMED Code(s): 6774315 (5) Right knee pain Current Visit: No Status: Acute sudden onset 4 days [employer]OWER TR[employer]FORM[employer]PER[employer]OR etiology not clear ortho consulted consider arthrocenteesis consider imaging? MRI ? Qualifiers: Chronicity: acute Qualified Code(s): M25.561 - Pain in right knee SNOMED Code(s): 54534780 (6) Nausea and vomiting Current Visit: No Status: Acute resolved etiology not clear Qualifiers: Vomiting type: unspecified Vomiting Intractability: unspecified Qualified Code(s): R11.2 - Nausea with vomiting, unspecified SNOMED Code(s): 54072537 - Recommendations Recommendations: I am not sure what is causing the patient's confusion, acute right knee pain and very high inflammatory markers. Underlying deep infection is on my differential specially with previous hematoma was and evacuations and surgeries in the past so the risk is there I would consider getting CT of the lower extremities bilaterally to rule out osteomyelitis Agree with orthopedic consult If orthopedics feels that there is septic arthritis, consider arthrocentesis and send fluid for cell count, chemistry, Gram stain and culture Colistin has been stopped. I think the patient has been treated adequately if there is no underlying osteomyelitis. If imaging shows underlying osteomyelitis then we will have to see if we can go back to using colistin or what options we have. In the meantime I agree with just Augmentin for now. Monitor labs closely Monitor kidney function Monitor for any altered mental status Past Med Surg Social Fam HX - Past Medical History Medical history: asthma, GERD, hypertension, other Additional medical history: Monoclonal protein Psychiatric history: no psych history - Past Surgical History Surgical History: appendectomy, cholecystectomy, hysterectomy Additional surgical history: thorasic surgery, hematoma removed - Social History Smoking Status: Never smoker Smokeless Tobacco Status: No Alcohol use: none Drug use: none - Family History Mother Living Status: Still Living Hx Family Cardiac Disorders: Yes (Heart stents) Hx Family GI Disorders: Yes Hx Family Neuromuscular Disorders: Yes Father Living Status: Hx Family Cardiac Disorders: Yes Hx Family Cancer: Yes (Colon ca) Consult Discharge Plan - Plan Referrals: Bárbara Mcneal CNP [Primary Care Provider] - Denzel Chen MD [Non-Partnered Physician] - (Please schedule appt in wound care, 1-2 weeks after d/c)
[2019-07-06] MEDS: Loratadine 10 MG TABLET PO SCH (17:48)
[2019-07-06] MEDS: Cholecalciferol (D-3) 1,000 UNIT (25MCG) TABLET PO SCH (20:16)
--- NOTE | 2019-07-07 00:37 | Orthopedic Consult Note ---
Date of Encounter: 07/06/19 Time of Encounter: 21:00 History of Present Illness Chief complaint: Right knee pain HPI: Ms. Menon is a 74 year old female who has about a 3 week history of right knee pain especially involving the medial side of the knee. There are concerns for possible infectious source septic process. The patient does have infectious problems and regarding the left leg and with the right knee pain concern for possible septic or infectious process in the right leg has been entertained. Patient states that the knee is painful to ambulate on as well as a sensation of instability. Denies any acute or current trauma. I reviewed the patient's completed history and physical exam as well as the completed medical record. Physical examination reveals an obese white female in minimal distress. Examination of the right knee is somewhat difficult due to the patient's very large body habitus. There is a healed area of previous skin trauma along the medial area overlying the tibia. Knee does not reveal any obvious effusion. There is tenderness along the medial joint line and along the patellofemoral joint. Lateral side shows minimal pain. Crepitant patellofemoral motion is appreciated. No erythema. No ecchymosis. X-rays of the right knee are nonweightbearing but do show fairly advanced arthritic changes especially involving the patellofemoral joint and medial compartment. No evidence of any acute fractures. No evidence of any martín tructive lesions. There is generalized osteopenia. A tremendously large soft tissue envelope is noted. Impression: Right knee pain, suspected arthritic etiology. Plan: I discussed with the patient that there were concerns for possible septic process in the right knee and there was a recommendation to proceed with arthrocentesis for specimen. I discussed with the patient that this can be done now at bedside with local anesthetic and a specimen been drawn for chemistries and culture. Patient feels that she is had a rough day and is not interested in proceeding with any intervention at this time. She has requested we continue to observe the knee and of the knee progresses or worsens might be amenable to arthrocentesis at that time. I discussed with the patient that I do not appreciate any significant effusion at this time and that the possibility of a "dry tap" exists. Please call me if I can be of any further assistance in this manner. I will not be available until 07/08/2019, if arthrocentesis is required prior to then please communicate with the orthopedic surgeon manager pulmonary. Thank you very much for allowing me to see and care for Mrs. Menon. Sincerely, Contreras Crystal,DO Past Med Surg Social Fam HX - Past Medical History Medical history: asthma, GERD, hypertension, other Additional medical history: Monoclonal protein Psychiatric history: no psych history - Past Surgical History Surgical History: appendectomy, cholecystectomy, hysterectomy Additional surgical history: thorasic surgery, hematoma removed - Social History Smoking Status: Never smoker Smokeless Tobacco Status: No Alcohol use: none Drug use: none - Family History Mother Living Status: Still Living Hx Family Cardiac Disorders: Yes (Heart stents) Hx Family GI Disorders: Yes Hx Family Neuromuscular Disorders: Yes Father Living Status: Hx Family Cardiac Disorders: Yes Hx Family Cancer: Yes (Colon ca) Medications and Allergies Benzonatate [Tessalon] 100 mg PO BID PRN 01/13/19 [History] Bisoprolol Fumarate [Zebeta] 5 mg PO BID 01/13/19 [History] Cholecalciferol (Vitamin D3) [Vitamin D3] 1,000 units PO HS 01/13/19 [History] DULoxetine [Cymbalta] 30 mg PO BID 01/13/19 [History] Famotidine/Ca Carb/Mag Hydrox [Pepcid Complete Tablet Chew] 1 each PO QPM PRN 01/13/19 [History] Fluticasone Propionate [Flovent Hfa] 2 puff IH BID 01/13/19 [History] Furosemide [Lasix] 20 mg PO QAM 01/13/19 [History] Loratadine [Allergy Relief] 10 mg PO QPM 01/13/19 [History] Polyethylene Glycol 3350 [MiraLAX] 17 gm PO DAILY PRN 01/13/19 [History] Sodium Chloride [Saline Wound Wash] 210 ml TP AD #1 spray 01/14/19 [Rx] Fluticasone Propionate Nasal [Flonase] 2 spray NS BID 05/04/19 [History] Levalbuterol Tartrate [Levalbuterol Tartrate Hfa] 2 puff PO Q4H PRN 05/04/19 [History] Ondansetron HCl [Zofran] 4 mg PO Q6H PRN 05/04/19 [History] Allergy/AdvReac Type Severity Reaction Status Date / Time cephalexin [From Keflex] AdvReac Diarrhea Verified 06/15/19 14:32 codeine AdvReac Headache Verified 01/12/19 15:46 meperidine [From Demerol] AdvReac Vomiting Verified 01/12/19 15:46 roses Allergy See Uncoded 01/12/19 15:46 Comments All Systems Reviewed: The remainder of the systems were reviewed and are negative Physical Exam - Constitutional Vitals: Temp Pulse Resp BP Pulse Ox 97.7 F 80 17 128/79 96 07/06/19 19:32 07/06/19 19:32 07/06/19 19:50 07/06/19 19:32 07/06/19 19:50 Results - Labs Result Diagrams: 07/06/19 04:30 07/06/19 04:30 Labs: Abnormal lab results RBC 3.59 M/mcL (3.82-4.97) L 07/06/19 04:30 Hgb 9.4 g/dL (11.5-15.4) L 07/06/19 04:30 Hct 30.2 % (35.3-44.9) L 07/06/19 04:30 MCH 26.2 pg (28.0-33.3) L 07/06/19 04:30 MCHC 31.1 g/dL (31.6-35.5) L 07/06/19 04:30 Potassium 3.2 mEq/L (3.5-5.1) L 07/06/19 04:30 Est GFR (Non-Af Amer) 53 (> 60) L 07/06/19 04:30 Glucose 108 mg/dL (70-105) H 07/06/19 04:30 POC Glucose 119 mg/dL (70-99) H 07/06/19 17:51 Urine Clarity Cloudy (Clear) A 07/05/19 20:24 Urine Ketones 15 mg/dL (Negative) H 07/05/19 20:24 Urine Microscopic RBC 3-5 per hpf (0-3) H 07/05/19 20:24 Urine Microscopic WBC 3-5 per hpf (0-3) H 07/05/19 20:24 Ur Squamous Epith Cells Many per lpf (None-Few) H 07/05/19 20:24 H & H 07/06/19 Range/Units 04:30 Hgb 9.4 L (11.5-15.4) g/dL Hct 30.2 L (35.3-44.9) % All other labs normal. - Diagnostic results Knee x-ray: image reviewed Consult Discharge Plan - Plan Referrals: Bárbara Mcneal CNP [Primary Care Provider] - Denzel Chen MD [Non-Partnered Physician] - (Please schedule appt in wound care, 1-2 weeks after d/c)
[2019-07-07 02:48] LABS: Basophils # 0.1 K/mcL (0.0-0.2); Basophils % 0.5 %; Eosinophils # 0.2 K/mcL (0.0-0.6); Eosinophils % 1.6 %; Hematocrit 30.3 % (35.3-44.9); Hemoglobin 9.5 g/dL (11.5-15.4); Immature Granulocytes % 0.9 % (0-4); Lymphocytes # 1.1 K/mcL (0.6-4.6); Lymphocytes % 10.7 %; Mean Corpuscular HGB Conc 31.4 g/dL (31.6-35.5); Mean Platelet Volume 11.5 fL (9.4-12.4); Monocytes # 1.6 K/mcL (0.0-1.3); Monocytes % 15.4 %; Neutrophils # 7.5 K/mcL (1.6-8.9); Platelet Count 320 K/mcL (140-400); Red Blood Count 3.65 M/mcL (3.82-4.97); Red Cell Distribution Width 14.5 % (11.5-14.5); Segmented Neutrophils % 70.9 %; White Blood Count 10.5 K/mcL (4.3-11.1)
[2019-07-07 03:10] LABS: BUN/Creatinine Ratio 15 (6-26); Blood Urea Nitrogen 15 mg/dL (8-23); Calcium 9.5 mg/dL (8.6-10.3); Carbon Dioxide 25 mEq/L (23-29); Chloride 103 mEq/L (98-107); Glucose 115 mg/dL (70-105); Osmolality,Calculated 286 (280-300); Potassium 3.8 mEq/L (3.5-5.1); Sodium 137 mEq/L (136-145); eGFR For African Americans > 60 (> 60); eGFR For Non-African Americans 53 (> 60)
[2019-07-07] MEDS: Furosemide 20 MG TABLET PO SCH (09:36)
[2019-07-07] MEDS: Fluticasone Propionate Nasal 50 MCG/SPRAY BOTTLE NS SCH ×2 (09:37→21:27)
--- NOTE | 2019-07-07 10:39 | Internal Med Progress Note ---
<Jenny Jennings I - Last Filed: 07/07/19 15:47> Hospitalist Progress Note - Encounter Date of Encounter: 07/07/19 Time of Encounter: 08:40 - Subjective Interval History: Patient seen and examined. she was doing well Appears comfortable lying in bed. pain improved . She had an MRI earlier today and showed fracture of right knee No chest pain or shortness of breath no cough no sputum production no nausea no vomiting no diarrhea no constipation no urinary symptoms. Pain is under control. - Exam Vitals: Temp Pulse Resp BP Pulse Ox 98.5 F 80 18 127/76 96 07/07/19 02:43 07/07/19 02:43 07/07/19 07:21 07/07/19 02:43 07/07/19 07:21 Exam: General - Alert and oriented x 3, no acute distress and appears comfortable HEENT - Conjunctiva clear, no nasal or oral mucosal lesions/ulcerations Heme/Lymph - No cervical or supraclavicular lymph node enlargement or tenderness. No pallor. Heart - S1S2 regular in rate and rhythm without murmurs, clicks or rubs. No peripheral edema. Radial pulses equal and strong Lungs - Unlabored breathing, clear to auscultation bilaterally without wheezes or crackles; no decrease in chest expansion Extremities - Right lower extrimity swelling , redness and tender to palpate , decrease ROM , LLE : appear edematous and is wrapped Gastrointestinal - Soft, nontender, nondistended. Unable to palpate any hepatosplenomegaly Neurological - Gait normal, muscle strength 5/5 in all four extremities, sensation intact psych - normal mood and behavior - Assessment and Plan (1) Hematoma of left lower extremity Current Visit: Yes Status: Chronic Assessment and Plan: on 05/05/2019 she had evacuation of hematoma of the left lower extremity wound , she had issues with wound healing and required wound VAC 05/26/2019 swab culture which was positive for multidrug-resistant organism Acinetobacter baumanni and MSSA and was started on Keflex plus colistin. she finished colistin course she is now on augmentin day 3 CT lower leg per ID recommendations (2) Effusion, right knee Current Visit: Yes Status: Acute Assessment and Plan: patient presented with sudden right knbee pain and swelling 4 days ago cause unknown her wbc is normal . blood culture is pending MRI of right knee : Subchondral impaction fracture at the medial femoral condyle with significant surrounding bone marrow edema.Moderate knee joint effusion. her uric acid level is normal ID & orthopedic consulted for possible need for arthrocentesis patient refused arthrocentesis yesterday but is ok to do it today she is on augmentin for infectious cause coverage (3) Frequent falls Current Visit: No Status: Acute Assessment and Plan: this is a chronic condition , patient has frequent falls due to peripheral neuropathy (4) HTN (hypertension) Current Visit: No Status: Chronic Assessment and Plan: his is a chronic condition . continue home med - Time Spent with Patient Total time spent is greater than 50% in coordination of care (as documented) at patient's floor/unit and/or counseling patient: Internal Medicine: Result - Labs CBC & Chem 7: 07/07/19 02:40 07/07/19 02:40 Labs: Short CBC 07/07/19 Range/Units 02:40 WBC 10.5 (4.3-11.1) K/mcL Hgb 9.5 L (11.5-15.4) g/dL Hct 30.3 L (35.3-44.9) % Plt Count 320 (140-400) K/mcL Neutrophils # 7.5 (1.6-8.9) K/mcL BMP 07/07/19 02:40 Sodium 137 Potassium 3.8 Chloride 103 Carbon Dioxide 25 BUN 15 Creatinine 1.03 Glucose 115 H Calcium 9.5 - ABG Interpretation ABG results: PT/INR, D-dimer PT 12.0 Seconds (9.4-12.1) 07/06/19 04:30 - Impressions Impressions Knee MRI 07/07/19 21:41 IMPRESSION: Subchondral impaction fracture at the medial femoral condyle with significant surrounding bone marrow edema. Moderate knee joint effusion. Mild free edge truncation of the medial and lateral meniscus body could represent free edge tears. Moderate to severe chondral thinning at the patella with full-thickness chondral fissuring. D/ / 07/07/2019 09:26:30 Jordan Rojas / guillermina Interpreting Provider: Jordan Rojas Consult Discharge Plan - Plan Referrals: Bárbara Mcneal CNP [Primary Care Provider] - Denzel Chen MD [Non-Partnered Physician] - (Please schedule appt in wound care, 1-2 weeks after d/c) <Etelvina Pelayo - Last Filed: 07/07/19 21:11> Hospitalist Progress Note - Encounter Date of Encounter: 07/07/19 - Exam Vitals: Temp Pulse Resp BP Pulse Ox 97.9 F 81 17 136/76 98 07/07/19 19:46 07/07/19 19:46 07/07/19 19:52 07/07/19 19:46 07/07/19 19:52 - Assessment and Plan (1) Hematoma of left lower extremity Current Visit: Yes Status: Chronic (2) Frequent falls Current Visit: No Status: Acute (3) HTN (hypertension) Current Visit: No Status: Chronic (4) Nausea Current Visit: No Status: Acute (5) Delirium Current Visit: No Status: Acute (6) Complicated wound infection Current Visit: No Status: Acute - Time Spent with Patient Total time spent is greater than 50% in coordination of care (as documented) at patient's floor/unit and/or counseling patient: Internal Medicine: Result - Labs CBC & Chem 7: 07/07/19 02:40 07/07/19 02:40 Labs: Short CBC 07/07/19 Range/Units 02:40 WBC 10.5 (4.3-11.1) K/mcL Hgb 9.5 L (11.5-15.4) g/dL Hct 30.3 L (35.3-44.9) % Plt Count 320 (140-400) K/mcL Neutrophils # 7.5 (1.6-8.9) K/mcL BMP 07/07/19 02:40 Sodium 137 Potassium 3.8 Chloride 103 Carbon Dioxide 25 BUN 15 Creatinine 1.03 Glucose 115 H Calcium 9.5 - ABG Interpretation ABG results: PT/INR, D-dimer PT 12.0 Seconds (9.4-12.1) 07/06/19 04:30 - Impressions Impressions Lower Extremity CT 07/07/19 14:58 IMPRESSION: 1. Redemonstration of a chronic large soft tissue defect over the anterior and anterolateral aspects of the mid and proximal calf. Adjacent subcutaneous fat stranding compatible with reactive edema versus cellulitis. 2. Persistent thin crescentic shaped fluid collection anterior to the distal tibia without significant change from 06/04/2019. The other previously identified fluid collection is not clearly seen. 3. No acute osseous abnormality. D/ / Mark Reyes MD / Mark Reyes MD Interpreting Provider: Mark Reyes MD Knee MRI 07/07/19 21:41 IMPRESSION: Subchondral impaction fracture at the medial femoral condyle with significant surrounding bone marrow edema. Moderate knee joint effusion. Mild free edge truncation of the medial and lateral meniscus body could represent free edge tears. Moderate to severe chondral thinning at the patella with full-thickness chondral fissuring. D/ / 07/07/2019 09:26:30 Jordan Rojas / guillermina Interpreting Provider: Jordan Rojas - Attending Attestation I saw evaluated and examined this patient and reviewed objective data including labs and my medical decision-making was reviewed with the Resident Physician. I agree with the documented findings, disposition and treatment plan as described except to any changes set forth below. We independently had [id number] contact with the patient. <Jenny Jennings Simba - Last Filed: 07/07/19 15:47> (1) Hematoma of left lower extremity Qualifiers: Encounter type: subsequent encounter Qualified Code(s): S80.12XD - Contusion of left lower leg, subsequent encounter (4) HTN (hypertension) Qualifiers: Hypertension type: essential hypertension Qualified Code(s): I10 - Essential (primary) hypertension <Etelvina Pelayo - Last Filed: 07/07/19 21:11> (1) Hematoma of left lower extremity Qualifiers: Encounter type: subsequent encounter Qualified Code(s): S80.12XD - Contusion of left lower leg, subsequent encounter (3) HTN (hypertension) Qualifiers: Hypertension type: essential hypertension Qualified Code(s): I10 - Essential (primary) hypertension
[2019-07-07] MEDS: traMADol 50 MG TABLET PO PRN ×2 (12:09→17:46)
--- NOTE | 2019-07-07 14:07 | Infectious Disease Progress No ---
ID Progress Note Date of Encounter: 07/07/19 Time of Encounter: 14:04 - Subjective Subjective: Patient seen and examined. Appears comfortable lying in bed. Denies any pain. She had an MRI earlier today. MRI results reviewed. No chest pain or shortness of breath no cough no sputum production no nausea no vomiting no diarrhea no constipation no urinary symptoms. Pain is under control. Vital signs afebrile Labs reviewed - Objective CBC & Chem 7: 07/07/19 02:40 07/07/19 02:40 - Exam Vitals: Temp Pulse Resp BP Pulse Ox 97.5 F L 76 14 125/67 97 07/07/19 11:53 07/07/19 11:53 07/07/19 11:53 07/07/19 11:53 07/07/19 11:53 Exam: GENERAL: Comfortable. Laying in bed NAD HEENT: KAMLA, EOMI LUNGS: Good air sounds bilaterally, no wheezing or rhonchi CV: RRR, S1 S2 ABDOMEN: Soft, nontender, + bowel sounds EXT: Bilateral lower extremity venous stasis. Left lower extremity graft below the knee. NEURO: A&OX3; no focal deficit - Assessment and Plan (1) Wound of right lower extremity Current Visit: No Status: Acute Exam is limited Status post fallDecember 2018 01/13/2019 where she underwent excisional debridement of the right lower extremity wound washout of the right lower extremity wound. No cultures were obtained at that time. Clinically there is no obvious infection but exam is limited and I am concerned because her inflammatory markers are very high ESR was 109 and it jumped up to 119. Qualifiers: Encounter type: initial encounter Qualified Code(s): S81.801A - Unspecified open wound, right lower leg, initial encounter SNOMED Code(s): 838226792, 143287119 (2) Peripheral neuropathy Current Visit: No Status: Acute Etiology not clear Qualifiers: Peripheral neuropathy type: polyneuropathy, other Qualified Code(s): G62.89 - Other specified polyneuropathies SNOMED Code(s): 260564424 (3) Hematoma of left lower extremity Current Visit: Yes Status: Chronic 05/05/2019 s/p evacuation of hematoma of the left lower extremity wound and washout of the left lower extremity wound. issue with wound healing and required wound VAC 05/26/2019 swab culture which was positive for multidrug-resistant organism Acinetobacter baumanni and MSSA. 06/03/19 and was started on Keflex plus colistin. Qualifiers: Encounter type: subsequent encounter Qualified Code(s): S80.12XD - Contusion of left lower leg, subsequent encounter SNOMED Code(s): 636270784 (4) Delirium Current Visit: No Status: Acute etiology not clear no signs of aseptic or viral meningitis/encephalitis could be due to underlying infection? also could be due to colistin? 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 MRI ? Qualifiers: Chronicity: acute Qualified Code(s): M25.561 - Pain in right knee SNOMED Code(s): 95348258 (6) Nausea and vomiting Current Visit: No Status: Acute resolved etiology not clear Qualifiers: Vomiting type: unspecified Vomiting Intractability: unspecified Qualified Code(s): R11.2 - Nausea with vomiting, unspecified SNOMED Code(s): 49047709 - Recommendations Recommendations: Not even sure if the patient has an underlying infection. Mentation is at baseline Not sure if the ulcer mental status was due to the colistin MRI of the right lower extremity reviewed CT of the left lower extremity. Continue to monitor labs. We will discuss with orthopedic team Continue to hold colistin Consult Discharge Plan - Plan Referrals: Bárbara Mcneal CNP [Primary Care Provider] - Denzel Chen MD [Non-Partnered Physician] - (Please schedule appt in wound care, 1-2 weeks after d/c)
[2019-07-07] MEDS: Loratadine 10 MG TABLET PO SCH (17:46)
[2019-07-07] MEDS: Cholecalciferol (D-3) 1,000 UNIT (25MCG) TABLET PO SCH (21:27)
[2019-07-07] MEDS: Acetaminophen 325 MG TABLET PO PRN (21:28)
--- NOTE | 2019-07-07 23:21 | Orthopedics Progress Note ---
Date of Encounter: 07/07/19 Time of Encounter: 23:18 Subjective Principal diagnosis: Right knee effusion Interval history: Reviewed the patient's MRI. This is consistent with a acute to subacute insufficiency type subchondral fracture of the medial femoral condyle. Patient has an associated effusion. The effusion is consistent with a response to the subchondral insufficiency fracture. I do not see findings with suggest an infectious etiology. Would not recommend arthrocentesis of the knee unless a major concern for an infectious etiology exists. the patient has been on antibiotics and the culture result would be unpredictable as a joint has probably been sterilized. Objective Vital signs: Vital Signs Temp Pulse Resp BP Pulse Ox 07/07/19 19:52 17 98 07/07/19 19:46 97.9 F 81 15 136/76 98 07/07/19 14:52 97.9 F 81 16 122/46 95 07/07/19 11:53 97.5 F L 76 14 125/67 97 07/07/19 07:21 18 96 07/07/19 02:43 98.5 F 80 14 127/76 93 Intake and Output 07/07/19 07/07/19 07/07/19 07:59 15:59 23:59 Intake Total 240 / 540 300 / 540 Balance 240 / 540 300 / 540 Intake: Oral 240 / 540 300 / 540 Other: Meal Lunch Dinner Percent of Meal Consumed 100% 80% Stool Size Moderate Stool Consistency formed Stool Characteristics Normal for Patient Stool Color Brown # Voids 1 # Bowel Movements 1 Blood Glucose* 121 144 - Labs CBC & BMP: 07/07/19 02:40 07/07/19 02:40 Labs: Abnormal lab results RBC 3.65 M/mcL (3.82-4.97) L 07/07/19 02:40 Hgb 9.5 g/dL (11.5-15.4) L 07/07/19 02:40 Hct 30.3 % (35.3-44.9) L 07/07/19 02:40 MCH 26.0 pg (28.0-33.3) L 07/07/19 02:40 MCHC 31.4 g/dL (31.6-35.5) L 07/07/19 02:40 Monocytes # 1.6 K/mcL (0.0-1.3) H 07/07/19 02:40 Potassium 3.2 mEq/L (3.5-5.1) L 07/06/19 04:30 Est GFR (Non-Af Amer) 53 (> 60) L 07/07/19 02:40 Glucose 115 mg/dL (70-105) H 07/07/19 02:40 POC Glucose 135 mg/dL (70-99) H 07/06/19 20:47 Urine Clarity Cloudy (Clear) A 07/05/19 20:24 Urine Ketones 15 mg/dL (Negative) H 07/05/19 20:24 Urine Microscopic RBC 3-5 per hpf (0-3) H 07/05/19 20:24 Urine Microscopic WBC 3-5 per hpf (0-3) H 07/05/19 20:24 Ur Squamous Epith Cells Many per lpf (None-Few) H 07/05/19 20:24 Consult Discharge Plan - Plan Referrals: Bárbara Mcneal CNP [Primary Care Provider] - Denzel Chen MD [Non-Partnered Physician] - (Please schedule appt in wound care, 1-2 weeks after d/c)
[2019-07-08] MEDS: traMADol 50 MG TABLET PO PRN ×3 (01:42→14:19)
[2019-07-08 04:35] LABS: Basophils % 0.5 %; Eosinophils # 0.2 K/mcL (0.0-0.6); Hematocrit 29.6 % (35.3-44.9); Hemoglobin 9.1 g/dL (11.5-15.4); Immature Granulocytes % 1.6 % (0-4); Mean Corpuscular HGB Conc 30.7 g/dL (31.6-35.5); Mean Corpuscular Hemoglobin 26.2 pg (28.0-33.3); Mean Corpuscular Volume 85.3 fL (83.0-100.0); Mean Platelet Volume 12.1 fL (9.4-12.4); Monocytes # 1.1 K/mcL (0.0-1.3); Monocytes % 16.8 %; Platelet Count 301 K/mcL (140-400); Red Blood Count 3.47 M/mcL (3.82-4.97); Red Cell Distribution Width 14.6 % (11.5-14.5); Segmented Neutrophils % 62.1 %; White Blood Count 6.4 K/mcL (4.3-11.1)
[2019-07-08 04:57] LABS: BUN/Creatinine Ratio 14 (6-26); Blood Urea Nitrogen 14 mg/dL (8-23); Calcium 9.3 mg/dL (8.6-10.3); Carbon Dioxide 26 mEq/L (23-29); Chloride 105 mEq/L (98-107); Glucose 120 mg/dL (70-105); Osmolality,Calculated 288 (280-300); Potassium 4.2 mEq/L (3.5-5.1); Sodium 138 mEq/L (136-145); eGFR For African Americans > 60 (> 60); eGFR For Non-African Americans 56 (> 60)
--- NOTE | 2019-07-08 07:21 | Internal Med Progress Note ---
<TiffaniethelmaJenaro jaquezul Joycelyn - Last Filed: 07/08/19 17:55> Hospitalist Progress Note - Encounter Date of Encounter: 07/08/19 - Exam Vitals: Temp Pulse Resp BP Pulse Ox 98.0 F 70 16 118/60 98 07/08/19 15:50 07/08/19 15:50 07/08/19 15:50 07/08/19 15:50 07/08/19 12:54 - Assessment and Plan (1) Hematoma of left lower extremity Current Visit: Yes Status: Chronic (2) Frequent falls Current Visit: No Status: Acute (3) HTN (hypertension) Current Visit: No Status: Chronic (4) Nausea Current Visit: No Status: Acute (5) Delirium Current Visit: No Status: Acute (6) Complicated wound infection Current Visit: No Status: Acute - Time Spent with Patient Total time spent is greater than 50% in coordination of care (as documented) at patient's floor/unit and/or counseling patient: Internal Medicine: Result - Labs CBC & Chem 7: 07/08/19 03:10 07/08/19 03:10 Labs: Short CBC 07/08/19 Range/Units 03:10 WBC 6.4 (4.3-11.1) K/mcL Hgb 9.1 L (11.5-15.4) g/dL Hct 29.6 L (35.3-44.9) % Plt Count 301 (140-400) K/mcL Neutrophils # 4.0 (1.6-8.9) K/mcL BMP 07/08/19 03:10 Sodium 138 Potassium 4.2 Chloride 105 Carbon Dioxide 26 BUN 14 Creatinine 0.97 Glucose 120 H Calcium 9.3 - ABG Interpretation ABG results: PT/INR, D-dimer PT 12.0 Seconds (9.4-12.1) 07/06/19 04:30 - Impressions Impressions Lower Extremity CT 07/07/19 14:58 IMPRESSION: 1. Redemonstration of a chronic large soft tissue defect over the anterior and anterolateral aspects of the mid and proximal calf. Adjacent subcutaneous fat stranding compatible with reactive edema versus cellulitis. 2. Persistent thin crescentic shaped fluid collection anterior to the distal tibia without significant change from 06/04/2019. The other previously identified fluid collection is not clearly seen. 3. No acute osseous abnormality. D/ / Mark Reyes MD / Mark Reyes MD Interpreting Provider: Mark Reyes MD Consult Discharge Plan - Plan Referrals: Bárbara Mcneal CNP [Primary Care Provider] - Denzel Chen MD [Non-Partnered Physician] - (Please schedule appt in wound care, 1-2 weeks after d/c) - Attending Attestation I saw evaluated and examined this patient and reviewed objective data including labs and my medical decision-making was reviewed with the Resident Physician. I agree with the documented findings, disposition and treatment plan as described except to any changes set forth below. We independently had [id number] contact with the patient. <Jenny Jennings I - Last Filed: 07/08/19 19:26> Hospitalist Progress Note - Encounter Date of Encounter: 07/08/19 Time of Encounter: 10:15 - Subjective Interval History: Today patient was seen and examined , she is doing better , denies sever pain , she still has swelling of her right knee No chest pain or shortness of breath no cough no sputum production no nausea no vomiting no diarrhea no constipation no urinary symptoms. Pain is under control. - Exam Vitals: Temp Pulse Resp BP Pulse Ox 97.6 F 66 16 128/84 99 07/08/19 03:45 07/08/19 03:45 07/08/19 03:45 07/08/19 03:45 07/08/19 03:45 Exam: General - Alert and oriented x 3, no acute distress and appears comfortable HEENT - Conjunctiva clear, no nasal or oral mucosal lesions/ulcerations Heme/Lymph - No cervical or supraclavicular lymph node enlargement or tenderne ss. No pallor. Heart - S1S2 regular in rate and rhythm without murmurs, clicks or rubs. No peripheral edema. Radial pulses equal and strong Lungs - Unlabored breathing, clear to auscultation bilaterally without wheezes or crackles; no decrease in chest expansion Extremities - Right lower extrimity swelling , redness and tender to palpate , decrease ROM , LLE : appear edematous and is wrapped Gastrointestinal - Soft, nontender, nondistended. Unable to palpate any hepatosplenomegaly Neurological - Gait normal, muscle strength 5/5 in all four extremities, sensation intact psych - normal mood and behavior - Assessment and Plan (1) Effusion, right knee Current Visit: Yes Status: Acute Assessment and Plan: -patient presented with sudden right knbee pain and swelling 4 days before admission cause unknown -her wbc is normal .her uric acid level is normal blood culture is pending -MRI of right knee : acute to subacute insufficiency type subchondral fracture of the medial femoral condyle, associated effusion consistent with a response to the subchondral insufficiency fracture , gary mukherjee infectious not recommend arthrocentesis of the knee -she is on augmentin for infectious cause coverage (2) Hematoma of left lower extremity Current Visit: Yes Status: Chronic Assessment and Plan: -on 05/05/2019 she had evacuation of hematoma of the left lower extremity wound , she had issues with wound healing and required wound VAC -05/26/2019 swab culture which was positive for multidrug-resistant organism Acinetobacter baumanni and MSSA and was started on Keflex plus colistin. -she finished colistin course -she is now on augmentin day 4 -CT lower leg per ID recommendations which showes Redemonstration of a chronic large soft tissue defect over the anterior and anterolateral aspects of the mid and proximal calf. Adjacent subcutaneous fat stranding compatible with reactive edema versus cellulitis. Persistent thin crescentic shaped fluid collection anterior to the dista tibia without significant change from 06/04/2019. No acute osseous abnormality. (3) Frequent falls Current Visit: No Status: Acute Assessment and Plan: this is a chronic condition , patient has frequent falls due to peripheral ne uropathy (4) HTN (hypertension) Current Visit: No Status: Chronic - Time Spent with Patient Total time spent is greater than 50% in coordination of care (as documented) at patient's floor/unit and/or counseling patient: Internal Medicine: Result - Labs CBC & Chem 7: 07/08/19 03:10 07/08/19 03:10 Labs: Short CBC 07/08/19 Range/Units 03:10 WBC 6.4 (4.3-11.1) K/mcL Hgb 9.1 L (11.5-15.4) g/dL Hct 29.6 L (35.3-44.9) % Plt Count 301 (140-400) K/mcL Neutrophils # 4.0 (1.6-8.9) K/mcL BMP 07/08/19 03:10 Sodium 138 Potassium 4.2 Chloride 105 Carbon Dioxide 26 BUN 14 Creatinine 0.97 Glucose 120 H Calcium 9.3 - ABG Interpretation ABG results: PT/INR, D-dimer PT 12.0 Seconds (9.4-12.1) 07/06/19 04:30 - Impressions Impressions Lower Extremity CT 07/07/19 14:58 IMPRESSION: 1. Redemonstration of a chronic large soft tissue defect over the anterior and anterolateral aspects of the mid and proximal calf. Adjacent subcutaneous fat stranding compatible with reactive edema versus cellulitis. 2. Persistent thin crescentic shaped fluid collection anterior to the distal tibia without significant change from 06/04/2019. The other previously identified fluid collection is not clearly seen. 3. No acute osseous abnormality. D/ / Mark Reyes MD / Mark Reyes MD Interpreting Provider: Mark Reyes MD Knee MRI 07/07/19 21:41 IMPRESSION: Subchondral impaction fracture at the medial femoral condyle with significant surrounding bone marrow edema. Moderate knee joint effusion. Mild free edge truncation of the medial and lateral meniscus body could represent free edge tears. Moderate to severe chondral thinning at the patella with full-thickness chondral fissuring. D/ / 07/07/2019 09:26:30 Jordan Rojas / guillermina Interpreting Provider: Jordan Rojas <Fede Pelayoem - Last Filed: 07/08/19 17:55> (1) Hematoma of left lower extremity Qualifiers: Encounter type: subsequent encounter Qualified Code(s): S80.12XD - Contusion of left lower leg, subsequent encounter (3) HTN (hypertension) Qualifiers: Hypertension type: essential hypertension Qualified Code(s): I10 - Essential (primary) hypertension <Jenny Jennings I - Last Filed: 07/08/19 19:26> (2) Hematoma of left lower extremity Qualifiers: Encounter type: subsequent encounter Qualified Code(s): S80.12XD - Contusion of left lower leg, subsequent encounter (4) HTN (hypertension) Qualifiers: Hypertension type: essential hypertension Qualified Code(s): I10 - Essential (primary) hypertension
[2019-07-08] MEDS: Furosemide 20 MG TABLET PO SCH (08:55)
[2019-07-08] MEDS: Fluticasone Propionate Nasal 50 MCG/SPRAY BOTTLE NS SCH ×2 (08:57→21:04)
[2019-07-08] MEDS: Loratadine 10 MG TABLET PO SCH (17:56)
[2019-07-08] MEDS: Cholecalciferol (D-3) 1,000 UNIT (25MCG) TABLET PO SCH (21:03)
[2019-07-08] MEDS: Acetaminophen 325 MG TABLET PO PRN (21:04)
[2019-07-09 03:46] LABS: Basophils # 0.1 K/mcL (0.0-0.2); Basophils % 0.6 %; Eosinophils # 0.2 K/mcL (0.0-0.6); Eosinophils % 2.7 %; Hematocrit 30.5 % (35.3-44.9); Hemoglobin 9.2 g/dL (11.5-15.4); Immature Granulocytes % 1.6 % (0-4); Lymphocytes # 1.4 K/mcL (0.6-4.6); Lymphocytes % 17.9 %; Mean Corpuscular HGB Conc 30.2 g/dL (31.6-35.5); Mean Corpuscular Hemoglobin 25.8 pg (28.0-33.3); Mean Corpuscular Volume 85.7 fL (83.0-100.0); Mean Platelet Volume 11.7 fL (9.4-12.4); Monocytes # 1.5 K/mcL (0.0-1.3); Monocytes % 18.1 %; Neutrophils # 4.7 K/mcL (1.6-8.9); Platelet Count 324 K/mcL (140-400); Red Blood Count 3.56 M/mcL (3.82-4.97); Red Cell Distribution Width 14.5 % (11.5-14.5); Segmented Neutrophils % 59.1 %
[2019-07-09 04:02] LABS: Calcium 9.1 mg/dL (8.6-10.3); Potassium 4.2 mEq/L (3.5-5.1)
[2019-07-09 04:34] LABS: Platelet Estimate Normal (Normal)
--- NOTE | 2019-07-09 09:51 | Discharge Summary ---
Orders not resulted at time of discharge: Pending orders 07/06/19 09:50 Culture,Blood [BC] Routine Date of Encounter: 07/09/19 - Discharge Diagnosis (1) Effusion, right knee Status: Acute (2) Hematoma of left lower extremity Status: Chronic Qualifiers: Encounter type: subsequent encounter Qualified Code(s): S80.12XD - Contusion of left lower leg, subsequent encounter (3) Frequent falls Status: Acute (4) HTN (hypertension) Status: Chronic Qualifiers: Hypertension type: essential hypertension Qualified Code(s): I10 - Essential (primary) hypertension Hospital course: Ms. Menon is a 74 year old female - Time Spent with Patient Total time spent providing and/or coordinating discharge services: - Discharge Medications Prescriptions: No Action Loratadine [Allergy Relief] 10 mg PO QPM Famotidine/Ca Carb/Mag Hydrox [Pepcid Complete Tablet Chew] 1 each PO QPM PRN PRN Reason: Heartburn Furosemide [Lasix] 20 mg PO QAM Fluticasone Propionate [Flovent Hfa] 2 puff IH BID Benzonatate [Tessalon] 100 mg PO BID PRN PRN Reason: Cough Cholecalciferol (Vitamin D3) [Vitamin D3] 1,000 units PO HS Polyethylene Glycol 3350 [MiraLAX] 17 gm PO DAILY PRN PRN Reason: Constipation Bisoprolol Fumarate [Zebeta] 5 mg PO BID DULoxetine [Cymbalta] 30 mg PO BID Sodium Chloride [Saline Wound Wash] 210 ml TP AD #1 spray Fluticasone Propionate Nasal [Flonase] 2 spray NS BID Levalbuterol Tartrate [Levalbuterol Tartrate Hfa] 2 puff PO Q4H PRN PRN Reason: Shortness Of Breath Ondansetron HCl [Zofran] 4 mg PO Q6H PRN PRN Reason: Nausea Home Medications: Benzonatate [Tessalon] 100 mg PO BID PRN 01/13/19 [History] Bisoprolol Fumarate [Zebeta] 5 mg PO BID 01/13/19 [History] Cholecalciferol (Vitamin D3) [Vitamin D3] 1,000 units PO HS 01/13/19 [History] DULoxetine [Cymbalta] 30 mg PO BID 01/13/19 [History] Famotidine/Ca Carb/Mag Hydrox [Pepcid Complete Tablet Chew] 1 each PO QPM PRN 01/13/19 [History] Fluticasone Propionate [Flovent Hfa] 2 puff IH BID 01/13/19 [History] Furosemide [Lasix] 20 mg PO QAM 01/13/19 [History] Loratadine [Allergy Relief] 10 mg PO QPM 01/13/19 [History] Polyethylene Glycol 3350 [MiraLAX] 17 gm PO DAILY PRN 01/13/19 [History] Sodium Chloride [Saline Wound Wash] 210 ml TP AD #1 spray 01/14/19 [Rx] Fluticasone Propionate Nasal [Flonase] 2 spray NS BID 05/04/19 [History] Levalbuterol Tartrate [Levalbuterol Tartrate Hfa] 2 puff PO Q4H PRN 05/04/19 [History] Ondansetron HCl [Zofran] 4 mg PO Q6H PRN 05/04/19 [History] Allergies/Adverse Reactions: Allergy/AdvReac Type Severity Reaction Status Date / Time cephalexin [From Keflex] AdvReac Diarrhea Verified 06/15/19 14:32 codeine AdvReac Headache Verified 01/12/19 15:46 meperidine [From Demerol] AdvReac Vomiting Verified 01/12/19 15:46 roses Allergy See Uncoded 01/12/19 15:46 Comments Date of admission: 07/05/19 13:32 Primary care physician: Bárbara Mcneal CNP Consults: 07/05/19 14:00 Consult to Nutrition [CONS] Routine Comment: Consulting Provider: NUTRITION Reason for Dietary Consult: MST Score Consult to Pastoral Services [CONS] Routine Comment: 07/05/19 19:02 Consult to Surgery [CONS] Routine Consulting Provider: Acute Care Surgery Reason for Consult: left lower extremity wound infection Time Notified: 19:03 Call Completed: Yes 07/05/19 19:04 Consult to Infectious Diseases [CONS] Routine Consulting Provider: Infectious Disease Nia Reason for Consult: Left leg wound infection Time Notified: 19:04 Call Completed: Yes 07/06/19 09:08 Consult to Physical Therapy [CONS] Routine Comment: Evaluate, develop and implement POC Reason for Consult: hx increased falls, bmat 2 Does patient have active BEDREST order?: No Is patient medically & hemodynamically stable?: Yes Patient assessed for mobility or mobilized this visit?: No 07/06/19 09:09 Consult to Occupational Therapy [CONS] Routine Comment: Evaluate, develop and implement POC Reason for Consult: hx increased falls, bmat 2 Does patient have active BEDREST order?: No Is patient medically & hemodynamically stable?: Yes Patient assessed for mobility or mobilized this visit?: No 07/06/19 11:51 Consult to Infectious Diseases [CONS] Routine Consulting Provider: Infectious Disease Nia Reason for Consult: right knee swelling and tenderness Call Completed: Yes Consult to Orthopedic Surgery [CONS] Routine Consulting Provider: Contreras Crystal Reason for Consult: right knee pain and swelling Call Completed: Yes - Constitutional Vitals: Temp Pulse Resp BP Pulse Ox 98.2 F 67 16 135/71 97 07/09/19 06:56 07/09/19 06:56 07/09/19 06:56 07/09/19 06:56 07/09/19 06:56 - Discharge Instructions Follow Up With: Bárbara Mcneal CNP [Primary Care Provider] - Denzel Chen MD [Non-Partnered Physician] - (Please schedule appt in wound care, 1-2 weeks after d/c)
[2019-07-09] MEDS: Furosemide 20 MG TABLET PO SCH (09:57)
[2019-07-09] MEDS: Fluticasone Propionate Nasal 50 MCG/SPRAY BOTTLE NS SCH ×2 (09:58→21:14)
--- NOTE | 2019-07-09 12:59 | Infectious Disease Progress No ---
ID Progress Note Date of Encounter: 07/09/19 Time of Encounter: 12:56 - Subjective Subjective: Patient seen and examined. Appears comfortable lying in bed. Denies any pain. No chest pain or shortness of breath no cough no sputum production no nausea no vomiting no diarrhea no constipation no urinary symptoms. Pain is under control. Vital signs afebrile Labs reviewed - Objective CBC & Chem 7: 07/09/19 03:30 07/09/19 03:30 - Exam Vitals: Temp Pulse Resp BP Pulse Ox 98.6 F 74 16 136/68 98 07/09/19 10:32 07/09/19 10:32 07/09/19 10:32 07/09/19 10:32 07/09/19 10:32 Exam: GENERAL: Comfortable. Laying in bed NAD HEENT: KAMLA, EOMI LUNGS: Good air sounds bilaterally, no wheezing or rhonchi CV: RRR, S1 S2 ABDOMEN: Soft, nontender, + bowel sounds EXT: Adequate perfusion. No edema NEURO: A&OX3; no focal deficit - Assessment and Plan (1) Wound of right lower extremity Current Visit: No Status: Acute Exam is limited Status post fallDecember 2018 01/13/2019 where she underwent excisional debridement of the right lower extremity wound washout of the right lower extremity wound. No cultures were obtained at that time. Clinically there is no obvious infection but exam is limited and I am concerned because her inflammatory markers are very high ESR was 109 and it jumped up to 119. Qualifiers: Encounter type: initial encounter Qualified Code(s): S81.801A - Unspecified open wound, right lower leg, initial encounter SNOMED Code(s): 827457496, 964339357 (2) Peripheral neuropathy Current Visit: No Status: Acute Etiology not clear Qualifiers: Peripheral neuropathy type: polyneuropathy, other Qualified Code(s): G62.89 - Other specified polyneuropathies SNOMED Code(s): 663514313 (3) Hematoma of left lower extremity Current Visit: Yes Status: Chronic 05/05/2019 s/p evacuation of hematoma of the left lower extremity wound and washout of the left lower extremity wound. issue with wound healing and required wound VAC 05/26/2019 swab culture which was positive for multidrug-resistant organism Acinetobacter baumanni and MSSA. 06/03/19 and was started on Keflex plus colistin. Received colistin for approximately 5 weeks. Inflammatory markers continue to be elevated Qualifiers: Encounter type: subsequent encounter Qualified Code(s): S80.12XD - Contusion of left lower leg, subsequent encounter SNOMED Code(s): 270929462 (4) Delirium Current Visit: No Status: Acute etiology not clear no signs of aseptic or viral meningitis/encephalitis could be due to underlying infection? also could be due to colistin? seems resolved now SNOMED Code(s): 3197541 (5) Right knee pain Current Visit: No Status: Acute sudden onset 4 days [employer] etiology not clear ortho consulted consider arthrocenteesis consider imaging? MRI ? Qualifiers: Chronicity: acute Qualified Code(s): M25.561 - Pain in right knee SNOMED Code(s): 64341520 (6) Nausea and vomiting Current Visit: No Status: Acute resolved etiology not clear Qualifiers: Vomiting type: unspecified Vomiting Intractability: unspecified Qualified Code(s): R11.2 - Nausea with vomiting, unspecified SNOMED Code(s): 12267839 - Recommendations Recommendations: I cant explain why patient has such elevated ESR clinically she looks good with no obvious underlying infection we will attribute the AMS to the colistin since once it was stopped her symptoms improved without treating any other underlying condition Will follow up PRN Consult Discharge Plan - Plan Referrals: Bárbara Mcneal CNP [Primary Care Provider] - Denzel Chen MD [Non-Partnered Physician] - (Please schedule appt in wound care, 1-2 weeks after d/c)
[2019-07-09] MEDS ORDERED: Isovue-370 500 ML BOTTLE IVP ONE (13:20)
[2019-07-09] MEDS: Famotidine 20 MG TABLET PO PRN (13:20)
--- NOTE | 2019-07-09 15:53 | Internal Med Progress Note ---
<Jenny Jennings I - Last Filed: 07/09/19 15:50> Hospitalist Progress Note - Encounter Date of Encounter: 07/09/19 Time of Encounter: 08:50 - Subjective Interval History: Today patient was seen and examined , she is doing better , denies sever pain , she still has swelling of her right knee No chest pain or shortness of breath no cough no sputum production no nausea no vomiting no diarrhea no constipation no urinary symptoms. Pain is under control. - Exam Vitals: Temp Pulse Resp BP Pulse Ox 97.5 F L 74 16 122/72 99 07/09/19 14:21 07/09/19 14:21 07/09/19 14:21 07/09/19 14:21 07/09/19 14:21 Exam: General - Alert and oriented x 3, no acute distress and appears comfortable HEENT - Conjunctiva clear, no nasal or oral mucosal lesions/ulcerations Heme/Lymph - No cervical or supraclavicular lymph node enlargement or tenderness. No pallor. Heart - S1S2 regular in rate and rhythm without murmurs, clicks or rubs. No peripheral edema. Radial pulses equal and strong Lungs - Unlabored breathing, clear to auscultation bilaterally without wheezes or crackles; no decrease in chest expansion Extremities - Right lower extrimity swelling , redness and tender to palpate , decrease ROM , LLE : appear edematous and is wrapped Gastrointestinal - Soft, nontender, nondistended. Unable to palpate any hepatosplenomegaly Neurological - Gait normal, muscle strength 5/5 in all four extremities, sensation intact psych - normal mood and behavior - Assessment and Plan (1) Effusion, right knee Current Visit: Yes Status: Acute Assessment and Plan: -patient presented with sudden right knee pain and swelling 4 days before a dmission cause unknown -her wbc is normal .her uric acid level is normal blood culture is pending, inflamatory markers continue to be high -MRI of right knee : acute to subacute insufficiency type subchondral fracture of the medial femoral condyle, associated effusion consistent with a response to the subchondral insufficiency fracture , less likley infectious not recommend arthrocentesis of the knee -she is on augmentin for infectious cause coverage -Id consulted , no change in treatment at this point till CT result of lower extrimity (2) Hematoma of left lower extremity Current Visit: Yes Status: Chronic Assessment and Plan: -on 05/05/2019 she had evacuation of hematoma of the left lower extremity wound , she had issues with wound healing and required wound VAC -05/26/2019 swab culture which was positive for multidrug-resistant organism Acinetobacter baumanni and MSSA and was started on Keflex plus colistin. -she finished colistin course -she is now on augmentin day 4 -CT lower leg per ID recommendations which showes Redemonstration of a chronic large soft tissue defect over the anterior and anterolateral aspects of the mid and proximal calf. Adjacent subcutaneous fat stranding compatible with reactive edema versus cellulitis. Persistent thin crescentic shaped fluid collection anterior to the dista tibia without significant change from 06/04/2019. No acute osseous abnormality. -ID recommend CT left lower extremity to rule out osteomyelitis and further plan according to result (3) Frequent falls Current Visit: No Status: Acute Assessment and Plan: his is a chronic condition , patient has frequent falls due to peripheral neuropathy (4) HTN (hypertension) Current Visit: No Status: Chronic - Time Spent with Patient Total time spent is greater than 50% in coordination of care (as documented) at patient's floor/unit and/or counseling patient: Internal Medicine: Result - Labs CBC & Chem 7: 07/09/19 03:30 07/09/19 03:30 Labs: Short CBC 07/09/19 Range/Units 03:30 WBC 8.0 (4.3-11.1) K/mcL Hgb 9.2 L (11.5-15.4) g/dL Hct 30.5 L (35.3-44.9) % Plt Count 324 (140-400) K/mcL Neutrophils # 4.7 (1.6-8.9) K/mcL BMP 07/09/19 03:30 Sodium 139 Potassium 4.2 Chloride 105 Carbon Dioxide 28 BUN 19 Creatinine 1.14 Glucose 119 H Calcium 9.1 - ABG Interpretation ABG results: PT/INR, D-dimer PT 12.0 Seconds (9.4-12.1) 07/06/19 04:30 Consult Discharge Plan - Plan Referrals: Bárbara Mcneal CNP [Primary Care Provider] - Denzel Chen MD [Non-Partnered Physician] - (Please schedule appt in wound care, 1-2 weeks after d/c) <Etelvina Pelayo - Last Filed: 07/09/19 16:06> Hospitalist Progress Note - Encounter Date of Encounter: 07/09/19 - Exam Vitals: Temp Pulse Resp BP Pulse Ox 97.5 F L 74 16 122/72 99 07/09/19 14:21 07/09/19 14:21 07/09/19 14:21 07/09/19 14:21 07/09/19 14:21 - Assessment and Plan (1) Hematoma of left lower extremity Current Visit: Yes Status: Chronic (2) Frequent falls Current Visit: No Status: Acute (3) HTN (hypertension) Current Visit: No Status: Chronic (4) Nausea Current Visit: No Status: Acute (5) Delirium Current Visit: No Status: Acute (6) Complicated wound infection Current Visit: No Status: Acute - Time Spent with Patient Total time spent is greater than 50% in coordination of care (as documented) at patient's floor/unit and/or counseling patient: Internal Medicine: Result - Labs CBC & Chem 7: 07/09/19 03:30 07/09/19 03:30 Labs: Short CBC 07/09/19 Range/Units 03:30 WBC 8.0 (4.3-11.1) K/mcL Hgb 9.2 L (11.5-15.4) g/dL Hct 30.5 L (35.3-44.9) % Plt Count 324 (140-400) K/mcL Neutrophils # 4.7 (1.6-8.9) K/mcL BMP 07/09/19 03:30 Sodium 139 Potassium 4.2 Chloride 105 Carbon Dioxide 28 BUN 19 Creatinine 1.14 Glucose 119 H Calcium 9.1 - ABG Interpretation ABG results: PT/INR, D-dimer PT 12.0 Seconds (9.4-12.1) 07/06/19 04:30 - Attending Attestation I saw evaluated and examined this patient and reviewed objective data including labs and my medical decision-making was reviewed with the Resident Physician. I agree with the documented findings, disposition and treatment plan as described except to any changes set forth below. We independently had [id number] contact with the patient. <Jenny Jennings I - Last Filed: 07/09/19 15:50> (2) Hematoma of left lower extremity Qualifiers: Encounter type: subsequent encounter Qualified Code(s): S80.12XD - Contusion of left lower leg, subsequent encounter (4) HTN (hypertension) Qualifiers: Hypertension type: essential hypertension Qualified Code(s): I10 - Essential (primary) hypertension <Etelvina Pelayo - Last Filed: 07/09/19 16:06> (1) Hematoma of left lower extremity Qualifiers: Encounter type: subsequent encounter Qualified Code(s): S80.12XD - Contusion of left lower leg, subsequent encounter (3) HTN (hypertension) Qualifiers: Hypertension type: essential hypertension Qualified Code(s): I10 - Essential (primary) hypertension
--- NOTE | 2019-07-09 16:34 | Discharge Summary ---
- NOTES TO OUTPATIENT PROVIDER Notes to Outpatient Provider: Admitted on 07/05/2019 due to confusion , there was suspicion of right knee infection initially, however after work up her knee pain was deemed less likely for infection. No further Antibiotics needed at this time. Continue rehabilitation . Orders not resulted at time of discharge: Pending orders 07/06/19 09:50 Culture,Blood [BC] Routine Date of Encounter: 07/09/19 Time of Encounter: 09:15 - Discharge Diagnosis (1) Effusion, right knee Priority: Primary Status: Acute (2) Hematoma of left lower extremity Priority: Secondary Status: Chronic Qualifiers: Encounter type: subsequent encounter Qualified Code(s): S80.12XD - Contusion of left lower leg, subsequent encounter (3) Frequent falls Priority: Secondary Status: Acute (4) HTN (hypertension) Priority: Secondary Status: Chronic Qualifiers: Hypertension type: essential hypertension Qualified Code(s): I10 - Essential (primary) hypertension Hospital course: Ms. Menon is a 74 year old female patient with a history of hypertension, monoclonal antibody deficiency, peripheral neuropathy with episodes of frequent falls resulting in a hematoma that was treated with evacuation by general surgery. Her Most recent wound cultures were positive for Acinetobacter and staph aureus. Patient has been on Augmentin plus colistin and was being treated at [facility] for the past 2 months. She has completed course of colistin and is currently on Augmentin alone. She was noted to have worsening overall condition with poor appetite, increased episodes of confusion at night. She was also complaining of worsening pain in her right knee,She denies any fevers or chills. Admitted on 07/05/2019 due to confusion , there was suspicion of right knee infection initially, however after work up her knee pain was deemed less likely for infection. Right knee MRI showes acute to subacute insufficiency type subchondral fracture of the medial femoral condyle, effusion. The effusion is consistent with a response to the subchondral insufficiency fracture.Her ESR and CRP have also increased recently. Orthopedic was consulted and he did not recommend arthrocentesis of the right knee . No further Antibiotics needed at this time will continue rehabilitation . Patient is stable and understand treatment and plan . - Time Spent with Patient Total time spent providing and/or coordinating discharge services: - Discharge Medications Prescriptions: Continued Loratadine [Allergy Relief] 10 mg PO QPM Famotidine/Ca Carb/Mag Hydrox [Pepcid Complete Tablet Chew] 1 each PO QPM PRN PRN Reason: Heartburn Furosemide [Lasix] 20 mg PO QAM Fluticasone Propionate [Flovent Hfa] 2 puff IH BID Benzonatate [Tessalon] 100 mg PO BID PRN PRN Reason: Cough Cholecalciferol (Vitamin D3) [Vitamin D3] 1,000 units PO HS Polyethylene Glycol 3350 [MiraLAX] 17 gm PO DAILY PRN PRN Reason: Constipation Bisoprolol Fumarate [Zebeta] 5 mg PO BID DULoxetine [Cymbalta] 30 mg PO BID Sodium Chloride [Saline Wound Wash] 210 ml TP AD #1 spray Fluticasone Propionate Nasal [Flonase] 2 spray NS BID Levalbuterol Tartrate [Levalbuterol Tartrate Hfa] 2 puff PO Q4H PRN PRN Reason: Shortness Of Breath Ondansetron HCl [Zofran] 4 mg PO Q6H PRN PRN Reason: Nausea Home Medications: Benzonatate [Tessalon] 100 mg PO BID PRN 01/13/19 [History] Bisoprolol Fumarate [Zebeta] 5 mg PO BID 01/13/19 [History] Cholecalciferol (Vitamin D3) [Vitamin D3] 1,000 units PO HS 01/13/19 [History] DULoxetine [Cymbalta] 30 mg PO BID 01/13/19 [History] Famotidine/Ca Carb/Mag Hydrox [Pepcid Complete Tablet Chew] 1 each PO QPM PRN 01/13/19 [History] Fluticasone Propionate [Flovent Hfa] 2 puff IH BID 01/13/19 [History] Furosemide [Lasix] 20 mg PO QAM 01/13/19 [History] Loratadine [Allergy Relief] 10 mg PO QPM 01/13/19 [History] Polyethylene Glycol 3350 [MiraLAX] 17 gm PO DAILY PRN 01/13/19 [History] Sodium Chloride [Saline Wound Wash] 210 ml TP AD #1 spray 01/14/19 [Rx] Fluticasone Propionate Nasal [Flonase] 2 spray NS BID 05/04/19 [History] Levalbuterol Tartrate [Levalbuterol Tartrate Hfa] 2 puff PO Q4H PRN 05/04/19 [History] Ondansetron HCl [Zofran] 4 mg PO Q6H PRN 05/04/19 [History] Allergies/Adverse Reactions: Allergy/AdvReac Type Severity Reaction Status Date / Time cephalexin [From Keflex] AdvReac Diarrhea Verified 06/15/19 14:32 codeine AdvReac Headache Verified 01/12/19 15:46 meperidine [From Demerol] AdvReac Vomiting Verified 01/12/19 15:46 roses Allergy See Uncoded 01/12/19 15:46 Comments Date of admission: 07/05/19 13:32 Primary care physician: Bárbara Mcneal CNP Consults: 07/05/19 14:00 Consult to Nutrition [CONS] Routine Comment: Consulting Provider: NUTRITION Reason for Dietary Consult: MST Score Consult to Pastoral Services [CONS] Routine Comment: 07/05/19 19:02 Consult to Surgery [CONS] Routine Consulting Provider: Acute Care Surgery Reason for Consult: left lower extremity wound infection Time Notified: 19:03 Call Completed: Yes 07/05/19 19:04 Consult to Infectious Diseases [CONS] Routine Consulting Provider: Infectious Disease Nia Reason for Consult: Left leg wound infection Time Notified: 19:04 Call Completed: Yes 07/06/19 09:08 Consult to Physical Therapy [CONS] Routine Comment: Evaluate, develop and implement POC Reason for Consult: hx increased falls, bmat 2 Does patient have active BEDREST order?: No Is patient medically & hemodynamically stable?: Yes Patient assessed for mobility or mobilized this visit?: No 07/06/19 09:09 Consult to Occupational Therapy [CONS] Routine Comment: Evaluate, develop and implement POC Reason for Consult: hx increased falls, bmat 2 Does patient have active BEDREST order?: No Is patient medically & hemodynamically stable?: Yes Patient assessed for mobility or mobilized this visit?: No 07/06/19 11:51 Consult to Infectious Diseases [CONS] Routine Consulting Provider: Infectious Disease Nia Reason for Consult: right knee swelling and tenderness Call Completed: Yes Consult to Orthopedic Surgery [CONS] Routine Consulting Provider: Contreras Crystal Reason for Consult: right knee pain and swelling Call Completed: Yes - Constitutional Vitals: Temp Pulse Resp BP Pulse Ox 97.5 F L 74 16 122/72 99 07/09/19 14:21 07/09/19 14:21 07/09/19 14:21 07/09/19 14:21 07/09/19 14:21 General appearance: Present: A&O X 3, no acute distress Exam: . - Head Head exam: Present: atraumatic, normal inspection - Eye Eye exam: Present: EOMI, normal appearance - Neck Neck exam general surgery: Present: full ROM, trachea midline - Respiratory Respiratory exam: Present: CTAB - Cardiovascular Cardiovascular exam: Present: RRR, +S1, +S2 - GI/Abdominal GI/Abdominal exam: Present: normal bowel sounds, soft - Expanded Lower Extremities Exam Knee exam: Present: effusion, erythema, swelling, tenderness, warmth Lower Leg exam: Present: erythema, swelling, tenderness - Neurological Exam Neurological exam: Present: altered, oriented X3 - Psychiatric Psychiatric exam: Present: normal affect, normal mood - Patient Status Disposition: Transfer SNF Condition: Fair Functional capacity at discharge: uses cane/walker Overall status at discharge: patient is progressing back to baseline - Discharge Instructions Follow Up With: Bárbara Mcneal CNP [Primary Care Provider] - Denzel Chen MD [Non-Partnered Physician] - (Please schedule appt in wound care, 1-2 weeks after d/c) - Diet and Activity Activity: as per physical therapy
[2019-07-09] MEDS: Loratadine 10 MG TABLET PO SCH (17:48)
[2019-07-09] MEDS: Cholecalciferol (D-3) 1,000 UNIT (25MCG) TABLET PO SCH (21:12)
[2019-07-09] MEDS: traMADol 50 MG TABLET PO PRN (22:10)
[2019-07-10] MEDS: traMADol 50 MG TABLET PO PRN ×3 (04:39→21:53)
[2019-07-10 04:44] LABS: Basophils # 0.1 K/mcL (0.0-0.2); Basophils % 0.6 %; Eosinophils # 0.2 K/mcL (0.0-0.6); Eosinophils % 2.8 %; Hemoglobin 9.3 g/dL (11.5-15.4); Lymphocytes # 1.4 K/mcL (0.6-4.6); Lymphocytes % 17.2 %; Mean Corpuscular Hemoglobin 26.2 pg (28.0-33.3); Mean Corpuscular Volume 84.5 fL (83.0-100.0); Mean Platelet Volume 11.5 fL (9.4-12.4); Monocytes # 1.3 K/mcL (0.0-1.3); Monocytes % 16.2 %; Platelet Count 324 K/mcL (140-400); Red Blood Count 3.55 M/mcL (3.82-4.97); Red Cell Distribution Width 14.4 % (11.5-14.5); Segmented Neutrophils % 61.2 %; White Blood Count 8.2 K/mcL (4.3-11.1)
[2019-07-10 05:01] LABS: BUN/Creatinine Ratio 23 (6-26); Blood Urea Nitrogen 20 mg/dL (8-23); Calcium 9.3 mg/dL (8.6-10.3); Carbon Dioxide 25 mEq/L (23-29); Chloride 103 mEq/L (98-107); Glucose 100 mg/dL (70-105); Osmolality,Calculated 289 (280-300); Potassium 3.9 mEq/L (3.5-5.1); Sodium 138 mEq/L (136-145); eGFR For African Americans > 60 (> 60); eGFR For Non-African Americans > 60 (> 60)
--- NOTE | 2019-07-10 08:35 | Internal Med Progress Note ---
Hospitalist Progress Note - Encounter Date of Encounter: 07/10/19 Time of Encounter: 13:46 - Subjective Interval History: No acute events. Leg pain slowly improves and continues to work with PT/OT. - Exam Vitals: Temp Pulse Resp BP Pulse Ox 98.6 F 69 18 120/68 98 07/10/19 07:10 07/10/19 07:10 07/10/19 07:39 07/10/19 07:10 07/10/19 07:39 Exam: Gen: NAD, AAO x3 CVS: RRR, Lungs; CTAB Abd: soft, nt/nd Ext: bilateral lower extremity edema with right lower extremity tenderness, same compared to yesterday., no acute changes. - Assessment and Plan (1) Frequent falls Current Visit: No Status: Acute Assessment and Plan: Secondary to fracture and deconditioning. Patient continuing PT/OT. (2) Subchondral insufficiency fracture of femoral condyle Current Visit: Yes Status: Acute Assessment and Plan: Will be managed with orthopedic surgery as outpatient. (3) Hematoma of left lower extremity Current Visit: Yes Status: Chronic (4) HTN (hypertension) Current Visit: No Status: Chronic Assessment and Plan: BP within normal limits. No antihypertensives are currently ordered. Will continue to monitor. (5) Nausea Current Visit: No Status: Acute (6) Delirium Current Visit: No Status: Acute Assessment and Plan: Resolved. (7) Right knee pain Current Visit: No Status: Acute - Time Spent with Patient Total time spent is greater than 50% in coordination of care (as documented) at patient's floor/unit and/or counseling patient: Internal Medicine: Result - Labs CBC & Chem 7: 07/10/19 04:25 07/10/19 04:25 Labs: Short CBC 07/10/19 Range/Units 04:25 WBC 8.2 (4.3-11.1) K/mcL Hgb 9.3 L (11.5-15.4) g/dL Hct 30.0 L (35.3-44.9) % Plt Count 324 (140-400) K/mcL Neutrophils # 5.0 (1.6-8.9) K/mcL BMP 07/10/19 04:25 Sodium 138 Potassium 3.9 Chloride 103 Carbon Dioxide 25 BUN 20 Creatinine 0.86 Glucose 100 Calcium 9.3 - ABG Interpretation ABG results: PT/INR, D-dimer PT 12.0 Seconds (9.4-12.1) 07/06/19 04:30 Consult Discharge Plan - Plan Referrals: Bárbara Mcneal CNP [Primary Care Provider] - Denzel Chen MD [Non-Partnered Physician] - (Please schedule appt in wound care, 1-2 weeks after d/c) ___ (2) Subchondral insufficiency fracture of femoral condyle Qualifiers: Encounter type: initial encounter Laterality: right Qualified Code(s): M84.451A - Pathological fracture, right femur, initial encounter for fracture (3) Hematoma of left lower extremity Qualifiers: Encounter type: subsequent encounter Qualified Code(s): S80.12XD - Contusion of left lower leg, subsequent encounter (4) HTN (hypertension) Qualifiers: Hypertension type: essential hypertension Qualified Code(s): I10 - Essential (primary) hypertension (7) Right knee pain Qualifiers: Chronicity: acute Qualified Code(s): M25.561 - Pain in right knee
[2019-07-10] MEDS: Fluticasone Propionate Nasal 50 MCG/SPRAY BOTTLE NS SCH ×2 (08:55→21:55)
[2019-07-10] MEDS: Furosemide 20 MG TABLET PO SCH (08:55)
[2019-07-10] MEDS: Loratadine 10 MG TABLET PO SCH (18:09)
[2019-07-10] MEDS: Cholecalciferol (D-3) 1,000 UNIT (25MCG) TABLET PO SCH (21:53)
[2019-07-10] MEDS: Famotidine 20 MG TABLET PO PRN (21:58)
[2019-07-11] MEDS: Furosemide 20 MG TABLET PO SCH (08:05)
[2019-07-11] MEDS: Fluticasone Propionate Nasal 50 MCG/SPRAY BOTTLE NS SCH ×2 (08:06→22:07)
--- NOTE | 2019-07-11 10:51 | Internal Med Progress Note ---
Hospitalist Progress Note - Encounter Date of Encounter: 07/11/19 Time of Encounter: 10:48 - Subjective Interval History: No acute events. Had some chronic nausea from antibiotics that she says is resolved. Says leg pain is improving slowly. - Exam Vitals: Temp Pulse Resp BP Pulse Ox 98.1 F 71 15 133/68 95 07/11/19 07:53 07/11/19 07:53 07/11/19 07:53 07/11/19 07:53 07/11/19 07:53 Exam: Gen: NAD, AAO x3 CVS: RRR, Lungs; CTAB Abd: soft, nt/nd Ext: bilateral lower extremity edema with right lower extremity tenderness, same compared to yesterday., no acute changes. - Assessment and Plan (1) Subchondral insufficiency fracture of femoral condyle Current Visit: Yes Status: Acute Assessment and Plan: Will be managed with orthopedic surgery as outpatient. Awaiting placement to SNF. Continue with inpatient PT/OT. (2) Frequent falls Current Visit: No Status: Acute Assessment and Plan: Secondary to fracture and deconditioning. Patient continuing PT/OT. (3) Hematoma of left lower extremity Current Visit: Yes Status: Chronic (4) HTN (hypertension) Current Visit: No Status: Chronic Assessment and Plan: BP within normal limits. No antihypertensives are currently ordered. Will continue to monitor. (5) Delirium Current Visit: No Status: Acute Assessment and Plan: Resolved. (6) Right knee pain Current Visit: No Status: Acute - Time Spent with Patient Total time spent is greater than 50% in coordination of care (as documented) at patient's floor/unit and/or counseling patient: Internal Medicine: Result - Labs CBC & Chem 7: 07/10/19 04:25 07/10/19 04:25 - ABG Interpretation ABG results: PT/INR, D-dimer PT 12.0 Seconds (9.4-12.1) 07/06/19 04:30 Consult Discharge Plan - Plan Referrals: Bárbara Mcenal CNP [Primary Care Provider] - Denzel Chen MD [Non-Partnered Physician] - (Please schedule appt in wound care, 1-2 weeks after d/c) (1) Subchondral insufficiency fracture of femoral condyle Qualifiers: Encounter type: initial encounter Laterality: right Qualified Code(s): M84.451A - Pathological fracture, right femur, initial encounter for fracture (3) Hematoma of left lower extremity Qualifiers: Encounter type: subsequent encounter Qualified Code(s): S80.12XD - Contusion of left lower leg, subsequent encounter (4) HTN (hypertension) Qualifiers: Hypertension type: essential hypertension Qualified Code(s): I10 - Essential (primary) hypertension (6) Right knee pain Qualifiers: Chronicity: acute Qualified Code(s): M25.561 - Pain in right knee
[2019-07-11] MEDS: traMADol 50 MG TABLET PO PRN ×2 (16:03→22:06)
[2019-07-11] MEDS: Loratadine 10 MG TABLET PO SCH (17:14)
[2019-07-11] MEDS ORDERED: *HR* Cisatracurium 10 MG/5 ML VIAL IV ONE (20:53)
[2019-07-11] MEDS: Cholecalciferol (D-3) 1,000 UNIT (25MCG) TABLET PO SCH (22:06)
[2019-07-11] MEDS: Famotidine 20 MG TABLET PO PRN (22:06)
--- NOTE | 2019-07-12 08:12 | Internal Med Progress Note ---
<Jenny Jennings I - Last Filed: 07/12/19 17:24> Hospitalist Progress Note - Encounter Date of Encounter: 07/12/19 Time of Encounter: 09:50 - Subjective Interval History: Today patient was seen and examined , she is doing better , leg pain improved, able to walk few steps without pain , she still has swelling of her right knee No chest pain or shortness of breath no cough no sputum production no nausea no vomiting no diarrhea no constipation no urinary symptoms. Pain is under control. - Exam Vitals: Temp Pulse Resp BP Pulse Ox 98.1 F 65 16 122/72 96 07/12/19 07:22 07/12/19 07:22 07/12/19 07:39 07/12/19 07:22 07/12/19 07:39 Exam: General - Alert and oriented x 3, no acute distress and appears comfortable HEENT - Conjunctiva clear, no nasal or oral mucosal lesions/ulcerations Heme/Lymph - No cervical or supraclavicular lymph node enlargement or tenderness. No pallor. Heart - S1S2 regular in rate and rhythm without murmurs, clicks or rubs. No peripheral edema. Radial pulses equal and strong Lungs - Unlabored breathing, clear to auscultation bilaterally without wheezes or crackles; no decrease in chest expansion Extremities - Right lower extrimity swelling , redness and tender to palpate , decrease ROM , LLE : appear edematous and is wrapped Gastrointestinal - Soft, nontender, nondistended. Unable to palpate any hepatosplenomegaly Neurological - Gait normal, muscle strength 5/5 in all four extremities, s ensation intact psych - normal mood and behavior - Assessment and Plan (1) Effusion, right knee Current Visit: Yes Status: Acute Assessment and Plan: -patient presented with sudden right knee pain and swelling 4 days before admission cause unknown -MRI of right knee : acute to subacute insufficiency type subchondral fracture of the medial femoral condyle, associated effusion consistent with a response to the subchondral insufficiency fracture , gary mukherjee infectious not recommend a rthrocentesis of the knee -she is on augmentin day 7 -Will be managed with orthopedic surgery as outpatient. -Awaiting placement to SNF. -Continue with inpatient PT/OT. (2) Hematoma of left lower extremity Current Visit: Yes Status: Chronic Assessment and Plan: -on 05/05/2019 she had evacuation of hematoma of the left lower extremity wound , she had issues with wound healing and required wound VAC -05/26/2019 swab culture which was positive for multidrug-resistant organism Acinetobacter baumanni and MSSA and was started on Keflex plus colistin. -she finished colistin course -she is now on augmentin day 7 (3) Frequent falls Current Visit: No Status: Acute Assessment and Plan: Secondary to fracture and deconditioning. Patient continuing PT/OT. (4) HTN (hypertension) Current Visit: No Status: Chronic Assessment and Plan: BP within normal limits. No antihypertensives are currently ordered. Will continue to monitor. - Time Spent with Patient Total time spent is greater than 50% in coordination of care (as documented) at patient's floor/unit and/or counseling patient: Internal Medicine: Result - Labs CBC & Chem 7: 07/10/19 04:25 07/10/19 04:25 - ABG Interpretation ABG results: PT/INR, D-dimer PT 12.0 Seconds (9.4-12.1) 07/06/19 04:30 Consult Discharge Plan - Plan Referrals: Bárbara Mcneal CNP [Primary Care Provider] - (Web-requested, the office will call the patient to schedule a follow up appointment. ) Denzel Chen MD [Non-Partnered Physician] - (Please schedule appt in wound care, 1-2 weeks after d/c) <Etelvina Pelayo - Last Filed: 07/12/19 18:27> Hospitalist Progress Note - Encounter Date of Encounter: 07/12/19 - Exam Vitals: Temp Pulse Resp BP Pulse Ox 98.2 F 70 15 120/60 99 07/12/19 17:12 07/12/19 17:12 07/12/19 17:12 07/12/19 17:12 07/12/19 17:12 - Assessment and Plan (1) Subchondral insufficiency fracture of femoral condyle Current Visit: Yes Status: Acute (2) Frequent falls Current Visit: No Status: Acute (3) Hematoma of left lower extremity Current Visit: Yes Status: Chronic (4) HTN (hypertension) Current Visit: No Status: Chronic (5) Delirium Current Visit: No Status: Acute (6) Right knee pain Current Visit: No Status: Acute - Time Spent with Patient Total time spent is greater than 50% in coordination of care (as documented) at patient's floor/unit and/or counseling patient: Internal Medicine: Result - Labs CBC & Chem 7: 07/10/19 04:25 07/10/19 04:25 - ABG Interpretation ABG results: PT/INR, D-dimer PT 12.0 Seconds (9.4-12.1) 07/06/19 04:30 - Attending Attestation I saw evaluated and examined this patient and reviewed objective data including labs and my medical decision-making was reviewed with the Resident Physician. I agree with the documented findings, disposition and treatment plan as described except to any changes set forth below. We independently had [id number] contact with the patient. <Jenny Jennings Simba - Last Filed: 07/12/19 17:24> (2) Hematoma of left lower extremity Qualifiers: Encounter type: subsequent encounter Qualified Code(s): S80.12XD - Contusion of left lower leg, subsequent encounter (4) HTN (hypertension) Qualifiers: Hypertension type: essential hypertension Qualified Code(s): I10 - Essential (primary) hypertension <Etelvina Pelayo - Last Filed: 07/12/19 18:27> (1) Subchondral insufficiency fracture of femoral condyle Qualifiers: Encounter type: initial encounter Laterality: right Qualified Code(s): M84.451A - Pathological fracture, right femur, initial encounter for fracture (3) Hematoma of left lower extremity Qualifiers: Encounter type: subsequent encounter Qualified Code(s): S80.12XD - Contusion of left lower leg, subsequent encounter (4) HTN (hypertension) Qualifiers: Hypertension type: essential hypertension Qualified Code(s): I10 - Essential (primary) hypertension (6) Right knee pain Qualifiers: Chronicity: acute Qualified Code(s): M25.561 - Pain in right knee
[2019-07-12] MEDS: Furosemide 20 MG TABLET PO SCH (10:24)
[2019-07-12] MEDS: Fluticasone Propionate Nasal 50 MCG/SPRAY BOTTLE NS SCH ×2 (10:26→21:59)
[2019-07-12] MEDS: traMADol 50 MG TABLET PO PRN ×2 (15:20→21:58)
[2019-07-12] MEDS: Loratadine 10 MG TABLET PO SCH (18:03)
[2019-07-12] MEDS: Cholecalciferol (D-3) 1,000 UNIT (25MCG) TABLET PO SCH (21:58)
[2019-07-12] MEDS: Famotidine 20 MG TABLET PO PRN (22:02)
[2019-07-13 06:23] LABS: Basophils # 0.1 K/mcL (0.0-0.2); Basophils % 0.9 %; Eosinophils # 0.2 K/mcL (0.0-0.6); Eosinophils % 3.2 %; Hematocrit 31.3 % (35.3-44.9); Hemoglobin 9.5 g/dL (11.5-15.4); Lymphocytes # 1.2 K/mcL (0.6-4.6); Lymphocytes % 17.8 %; Mean Corpuscular HGB Conc 30.4 g/dL (31.6-35.5); Mean Corpuscular Hemoglobin 25.9 pg (28.0-33.3); Mean Corpuscular Volume 85.3 fL (83.0-100.0); Mean Platelet Volume 11.6 fL (9.4-12.4); Monocytes # 1.1 K/mcL (0.0-1.3); Monocytes % 15.5 %; Neutrophils # 4.2 K/mcL (1.6-8.9); Platelet Count 319 K/mcL (140-400); Red Blood Count 3.67 M/mcL (3.82-4.97); Red Cell Distribution Width 14.4 % (11.5-14.5); Segmented Neutrophils % 60.6 %
[2019-07-13 06:43] LABS: BUN/Creatinine Ratio 15 (6-26); Blood Urea Nitrogen 15 mg/dL (8-23); Calcium 9.6 mg/dL (8.6-10.3); Carbon Dioxide 27 mEq/L (23-29); Chloride 103 mEq/L (98-107); Glucose 117 mg/dL (70-105); Osmolality,Calculated 290 (280-300); Sodium 139 mEq/L (136-145); eGFR For African Americans > 60 (> 60); eGFR For Non-African Americans 54 (> 60)
[2019-07-13] MEDS: Furosemide 20 MG TABLET PO SCH (08:40)
[2019-07-13] MEDS: Fluticasone Propionate Nasal 50 MCG/SPRAY BOTTLE NS SCH ×2 (08:41→20:48)
--- NOTE | 2019-07-13 08:48 | Discharge Summary ---
<Jenny Jennings I - Last Filed: 07/13/19 08:45> - NOTES TO OUTPATIENT PROVIDER Notes to Outpatient Provider: Admitted on 07/05/2019 due to confusion , there was suspicion of right knee infection initially, however after work up her knee pain was deemed less likely for infection. No further Antibiotics needed at this time. Continue rehabilitation . Date of Encounter: 07/13/19 Time of Encounter: 08:30 - Discharge Diagnosis (1) Effusion, right knee Priority: Primary Status: Acute (2) Hematoma of left lower extremity Priority: Secondary Status: Chronic Qualifiers: Encounter type: subsequent encounter Qualified Code(s): S80.12XD - Contusion of left lower leg, subsequent encounter (3) Frequent falls Priority: Secondary Status: Acute (4) HTN (hypertension) Priority: Secondary Status: Chronic Qualifiers: Hypertension type: essential hypertension Qualified Code(s): I10 - Essential (primary) hypertension Hospital course: Ms. Menon is a 74 year old female with a history of hypertension, monoclonal antibody deficiency, peripheral neuropathy with episodes of frequent falls resulting in a hematoma that was treated with evacuation by general surgery. Her Most recent wound cultures were positive for Acinetobacter and staph aureus. Patient has been on Augmentin plus colistin and was being treated at [facility] for the past 2 months. She has completed course of colistin and is currently on Augmentin alone. She was noted to have worsening overall condition with poor appetite, increased episodes of confusion at night. She was also complaining of worsening pain in her right knee,She denies any fevers or chills. Admitted on 07/05/2019 due to confusion , there was suspicion of right knee infection initially, however after work up her knee pain was deemed less likely for infection. Right knee MRI showes acute to subacute insufficiency type subchondral fracture of the medial femoral condyle, effusion. The effusion is consistent with a response to the subchondral insufficiency fra cture.Her ESR and CRP have also increased recently. Orthopedic was consulted and he did not recommend arthrocentesis of the right knee . No further Antibiotics needed at this time will continue rehabilitation . Patient is stable and understand treatment and plan . - Time Spent with Patient Total time spent providing and/or coordinating discharge services: - Discharge Medications Prescriptions: Continued Loratadine [Allergy Relief] 10 mg PO QPM Famotidine/Ca Carb/Mag Hydrox [Pepcid Complete Tablet Chew] 1 each PO QPM PRN PRN Reason: Heartburn Furosemide [Lasix] 20 mg PO QAM Fluticasone Propionate [Flovent Hfa] 2 puff IH BID Benzonatate [Tessalon] 100 mg PO BID PRN PRN Reason: Cough Cholecalciferol (Vitamin D3) [Vitamin D3] 1,000 units PO HS Polyethylene Glycol 3350 [MiraLAX] 17 gm PO DAILY PRN PRN Reason: Constipation Bisoprolol Fumarate [Zebeta] 5 mg PO BID DULoxetine [Cymbalta] 30 mg PO BID Sodium Chloride [Saline Wound Wash] 210 ml TP AD #1 spray Fluticasone Propionate Nasal [Flonase] 2 spray NS BID Levalbuterol Tartrate [Levalbuterol Tartrate Hfa] 2 puff PO Q4H PRN PRN Reason: Shortness Of Breath Ondansetron HCl [Zofran] 4 mg PO Q6H PRN PRN Reason: Nausea Home Medications: Benzonatate [Tessalon] 100 mg PO BID PRN 01/13/19 [History] Bisoprolol Fumarate [Zebeta] 5 mg PO BID 01/13/19 [History] Cholecalciferol (Vitamin D3) [Vitamin D3] 1,000 units PO HS 01/13/19 [History] DULoxetine [Cymbalta] 30 mg PO BID 01/13/19 [History] Famotidine/Ca Carb/Mag Hydrox [Pepcid Complete Tablet Chew] 1 each PO QPM PRN 01/13/19 [History] Fluticasone Propionate [Flovent Hfa] 2 puff IH BID 01/13/19 [History] Furosemide [Lasix] 20 mg PO QAM 01/13/19 [History] Loratadine [Allergy Relief] 10 mg PO QPM 01/13/19 [History] Polyethylene Glycol 3350 [MiraLAX] 17 gm PO DAILY PRN 01/13/19 [History] Sodium Chloride [Saline Wound Wash] 210 ml TP AD #1 spray 01/14/19 [Rx] Fluticasone Propionate Nasal [Flonase] 2 spray NS BID 05/04/19 [History] Levalbuterol Tartrate [Levalbuterol Tartrate Hfa] 2 puff PO Q4H PRN 05/04/19 [History] Ondansetron HCl [Zofran] 4 mg PO Q6H PRN 05/04/19 [History] Allergies/Adverse Reactions: Allergy/AdvReac Type Severity Reaction Status Date / Time cephalexin [From Keflex] AdvReac Diarrhea Verified 06/15/19 14:32 codeine AdvReac Headache Verified 01/12/19 15:46 meperidine [From Demerol] AdvReac Vomiting Verified 01/12/19 15:46 roses Allergy See Uncoded 01/12/19 15:46 Comments Date of admission: 07/10/19 15:57 Primary care physician: Bárbara Mcneal CNP Consults: 07/05/19 14:00 Consult to Nutrition [CONS] Routine Comment: Consulting Provider: NUTRITION Reason for Dietary Consult: MST Score Consult to Pastoral Services [CONS] Routine Comment: 07/05/19 19:02 Consult to Surgery [CONS] Routine Consulting Provider: Acute Care Surgery Reason for Consult: left lower extremity wound infection Time Notified: 19:03 Call Completed: Yes 07/05/19 19:04 Consult to Infectious Diseases [CONS] Routine Consulting Provider: Infectious Disease Nia Reason for Consult: Left leg wound infection Time Notified: 19:04 Call Completed: Yes 07/06/19 09:08 Consult to Physical Therapy [CONS] Routine Comment: Evaluate, develop and implement POC Reason for Consult: hx increased falls, bmat 2 Does patient have active BEDREST order?: No Is patient medically & hemodynamically stable?: Yes Patient assessed for mobility or mobilized this visit?: No 07/06/19 09:09 Consult to Occupational Therapy [CONS] Routine Comment: Evaluate, develop and implement POC Reason for Consult: hx increased falls, bmat 2 Does patient have active BEDREST order?: No Is patient medically & hemodynamically stable?: Yes Patient assessed for mobility or mobilized this visit?: No 07/06/19 11:51 Consult to Infectious Diseases [CONS] Routine Consulting Provider: Infectious Disease Nia Reason for Consult: right knee swelling and tenderness Call Completed: Yes Consult to Orthopedic Surgery [CONS] Routine Consulting Provider: Contreras Crystal Reason for Consult: right knee pain and swelling Call Completed: Yes - Constitutional Vitals: Temp Pulse Resp BP Pulse Ox 98.0 F 64 16 127/76 96 07/13/19 06:55 07/13/19 06:55 07/13/19 07:46 07/13/19 06:55 07/13/19 07:46 General appearance: Present: A&O X 3, no acute distress Exam: . - Head Head exam: Present: atraumatic, normal inspection - Eye Eye exam: Present: EOMI, PERRL - Neck Neck exam general surgery: Present: full ROM, trachea midline - Respiratory Respiratory exam: Present: CTAB - Cardiovascular Cardiovascular exam: Present: RRR, +S1, +S2 - GI/Abdominal GI/Abdominal exam: Present: normal bowel sounds, soft - Expanded Lower Extremities Exam Knee exam: Present: effusion, erythema, warmth - Neurological Exam Neurological exam: Present: alert, CN II-XII intact, oriented X3 - Psychiatric Psychiatric exam: Present: normal affect, normal mood - Patient Status Disposition: Transfer SNF Condition: Fair Functional capacity at discharge: uses cane/walker Overall status at discharge: patient is progressing back to baseline - Discharge Instructions Follow Up With: Bárbara Mcneal CNP [Primary Care Provider] - (Web-requested, the office will call the patient to schedule a follow up appointment. ) Denzel Chen MD [Non-Partnered Physician] - (Please schedule appt in wound care, 1-2 weeks after d/c) - Diet and Activity Activity: as per physical therapy <Etelvina Pelayo - Last Filed: 07/13/19 19:06> Date of Encounter: 07/13/19 - Discharge Diagnosis (1) Subchondral insufficiency fracture of femoral condyle Status: Acute Qualifiers: Encounter type: initial encounter Laterality: right Qualified Code(s): M84.451A - Pathological fracture, right femur, initial encounter for fracture (2) Frequent falls Status: Acute (3) Hematoma of left lower extremity Status: Chronic Qualifiers: Encounter type: subsequent encounter Qualified Code(s): S80.12XD - Contusion of left lower leg, subsequent encounter (4) HTN (hypertension) Status: Chronic Qualifiers: Hypertension type: essential hypertension Qualified Code(s): I10 - Essential (primary) hypertension (5) Delirium Status: Acute (6) Right knee pain Status: Acute Qualifiers: Chronicity: acute Qualified Code(s): M25.561 - Pain in right knee Hospital course: Ms. Menon is a 74 year old female - Time Spent with Patient Total time spent providing and/or coordinating discharge services: Date of admission: 07/10/19 15:57 Primary care physician: Bárbara Mcneal CNP Consults: 07/05/19 14:00 Consult to Nutrition [CONS] Routine Comment: Consulting Provider: NUTRITION Reason for Dietary Consult: MST Score Consult to Pastoral Services [CONS] Routine Comment: 07/05/19 19:02 Consult to Surgery [CONS] Routine Consulting Provider: Acute Care Surgery Reason for Consult: left lower extremity wound infection Time Notified: 19:03 Call Completed: Yes 07/05/19 19:04 Consult to Infectious Diseases [CONS] Routine Consulting Provider: Infectious Disease Nia Reason for Consult: Left leg wound infection Time Notified: 19:04 Call Completed: Yes 07/06/19 09:08 Consult to Physical Therapy [CONS] Routine Comment: Evaluate, develop and implement POC Reason for Consult: hx increased falls, bmat 2 Does patient have active BEDREST order?: No Is patient medically & hemodynamically stable?: Yes Patient assessed for mobility or mobilized this visit?: No 07/06/19 09:09 Consult to Occupational Therapy [CONS] Routine Comment: Evaluate, develop and implement POC Reason for Consult: hx increased falls, bmat 2 Does patient have active BEDREST order?: No Is patient medically & hemodynamically stable?: Yes Patient assessed for mobility or mobilized this visit?: No 07/06/19 11:51 Consult to Infectious Diseases [CONS] Routine Consulting Provider: Infectious Disease Nia Reason for Consult: right knee swelling and tenderness Call Completed: Yes Consult to Orthopedic Surgery [CONS] Routine Consulting Provider: Contreras Crystal Reason for Consult: right knee pain and swelling Call Completed: Yes - Constitutional Vitals: Temp Pulse Resp BP Pulse Ox 97.9 F 70 20 112/67 93 07/13/19 15:28 07/13/19 15:28 07/13/19 15:28 07/13/19 15:28 07/13/19 15:28 - Attending Attestation I saw evaluated and examined this patient and reviewed objective data including labs and my medical decision-making was reviewed with the Resident Physician. I agree with the documented findings, disposition and treatment plan as described except to any changes set forth below. We independently had [id number] contact with the patient.
--- NOTE | 2019-07-13 08:58 | Physician Discharge Referral ---
ExtendedCare Referral Info Transfer To: SNF Provider in Charge after Transfer: PCP - Diagnosis (1) Effusion, right knee Priority: Primary Status: Acute (2) Hematoma of left lower extremity Priority: Secondary Status: Chronic (3) Frequent falls Priority: Secondary Status: Acute (4) HTN (hypertension) Priority: Secondary Status: Chronic - Transfer Medications Home Medications: Benzonatate [Tessalon] 100 mg PO BID PRN 01/13/19 [History] Bisoprolol Fumarate [Zebeta] 5 mg PO BID 01/13/19 [History] Cholecalciferol (Vitamin D3) [Vitamin D3] 1,000 units PO HS 01/13/19 [History] DULoxetine [Cymbalta] 30 mg PO BID 01/13/19 [History] Famotidine/Ca Carb/Mag Hydrox [Pepcid Complete Tablet Chew] 1 each PO QPM PRN 01/13/19 [History] Fluticasone Propionate [Flovent Hfa] 2 puff IH BID 01/13/19 [History] Furosemide [Lasix] 20 mg PO QAM 01/13/19 [History] Loratadine [Allergy Relief] 10 mg PO QPM 01/13/19 [History] Polyethylene Glycol 3350 [MiraLAX] 17 gm PO DAILY PRN 01/13/19 [History] Sodium Chloride [Saline Wound Wash] 210 ml TP AD #1 spray 01/14/19 [Rx] Fluticasone Propionate Nasal [Flonase] 2 spray NS BID 05/04/19 [History] Levalbuterol Tartrate [Levalbuterol Tartrate Hfa] 2 puff PO Q4H PRN 05/04/19 [History] Ondansetron HCl [Zofran] 4 mg PO Q6H PRN 05/04/19 [History] Allergies/Adverse Reactions: Allergy/AdvReac Type Severity Reaction Status Date / Time cephalexin [From Keflex] AdvReac Diarrhea Verified 06/15/19 14:32 codeine AdvReac Headache Verified 01/12/19 15:46 meperidine [From Demerol] AdvReac Vomiting Verified 01/12/19 15:46 roses Allergy See Uncoded 01/12/19 15:46 Comments - Respiratory Orders None Smoking Cessation: Smoking cessation has been advised. For more information, call the [place] Tobacco Quit Line at 4-391-QJAB-NOW. - Ancillary Orders May use pressure relief devices daily prn - Advance Directives Code Status: Full Code - Mobility Orders Chair - Rehabiliation Orders Rehab Orders: ROM Exercises, Evaluation for Physical Therapy, Evaluation for Occupational Therapy CERTIFICATION: I certify that the transfer of the above named patient to an Extended Care Facility is necessary for the continuing treatment of the diagnosis listed. The above information is true and accurate reflection of patient's current condition. Confidential - Redisclosure prohibited without a patient's written consent.
[2019-07-13] MEDS: traMADol 50 MG TABLET PO PRN (13:09)
--- NOTE | 2019-07-13 16:13 | Infectious Disease Progress No ---
ID Progress Note Date of Encounter: 07/13/19 Time of Encounter: 16:09 - Subjective Subjective: Patient seen and examined. Appears comfortable lying in bed. Denies any pain. No chest pain or shortness of breath no cough no sputum production no nausea no vomiting no diarrhea no constipation no urinary symptoms. Pain is under control. Vital signs afebrile Labs reviewed - Objective CBC & Chem 7: 07/13/19 05:35 07/13/19 05:35 - Exam Vitals: Temp Pulse Resp BP Pulse Ox 97.9 F 70 20 112/67 93 07/13/19 15:28 07/13/19 15:28 07/13/19 15:28 07/13/19 15:28 07/13/19 15:28 Exam: GENERAL: Comfortable. Laying in bed NAD HEENT: KAMLA, EOMI LUNGS: Good air sounds bilaterally, no wheezing or rhonchi CV: RRR, S1 S2 ABDOMEN: Soft, nontender, + bowel sounds EXT: both legs wrapped NEURO: A&OX3; no focal deficit - Assessment and Plan (1) Wound of right lower extremity Current Visit: No Status: Acute Exam is limited Status post fallDecember 2018 01/13/2019 where she underwent excisional debridement of the right lower extremity wound washout of the right lower extremity wound. No cultures were obtained at that time. Clinically there is no obvious infection but exam is limited and I am concerned because her inflammatory markers are very high ESR was 109 and it jumped up to 119. Qualifiers: Encounter type: initial encounter Qualified Code(s): S81.801A - Unspecified open wound, right lower leg, initial encounter SNOMED Code(s): 399422249, 751223052 (2) Peripheral neuropathy Current Visit: No Status: Acute Etiology not clear Qualifiers: Peripheral neuropathy type: polyneuropathy, other Qualified Code(s): G62.89 - Other specified polyneuropathies SNOMED Code(s): 164441664 (3) Hematoma of left lower extremity Current Visit: Yes Status: Chronic 05/05/2019 s/p evacuation of hematoma of the left lower extremity wound and washout of the left lower extremity wound. issue with wound healing and required wound VAC 05/26/2019 swab culture which was positive for multidrug-resistant organism Acinetobacter baumanni and MSSA. 06/03/19 and was started on Keflex plus colistin. Received colistin for approximately 5 weeks. Inflammatory markers continue to be elevated Qualifiers: Encounter type: subsequent encounter Qualified Code(s): S80.12XD - Contusion of left lower leg, subsequent encounter SNOMED Code(s): 676610347 (4) Delirium Current Visit: No Status: Acute etiology not clear no signs of aseptic or viral meningitis/encephalitis could be due to underlying infection? also could be due to colistin? 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 MRI ? Qualifiers: Chronicity: acute Qualified Code(s): M25.561 - Pain in right knee SNOMED Code(s): 90506918 (6) Nausea and vomiting Current Visit: No Status: Acute resolved etiology not clear Qualifiers: Vomiting type: unspecified Vomiting Intractability: unspecified Qualified Code(s): R11.2 - Nausea with vomiting, unspecified SNOMED Code(s): 09116163 - Recommendations Recommendations: off antibiotics doing well no further recommendations patient being discharged we will sign off Consult Discharge Plan - Plan Referrals: Bárbara Mcneal ULTRASOUND TECHNOLOGIST SONOGRAPHER [Primary Care Provider] - (Web-requested, the office will call the patient to schedule a follow up appointment. ) Denzel Chen MD [Non-Partnered Physician] - (Please schedule appt in wound care, 1-2 weeks after d/c)
[2019-07-13] MEDS: Loratadine 10 MG TABLET PO SCH (17:58)
[2019-07-13] MEDS: Cholecalciferol (D-3) 1,000 UNIT (25MCG) TABLET PO SCH (20:46)
[2019-07-14] MEDS: Furosemide 20 MG TABLET PO SCH (07:38)
[2019-07-14] MEDS: Fluticasone Propionate Nasal 50 MCG/SPRAY BOTTLE NS SCH (07:39)
[2019-07-14 11:27] VITALS: BP 108/65
--- NOTE | 2019-07-14 13:14 | Internal Med Progress Note ---
<Jenny Jennings I - Last Filed: 07/14/19 13:39> Hospitalist Progress Note - Encounter Date of Encounter: 07/14/19 Time of Encounter: 09:50 - Subjective Interval History: Today patient was seen and examined , she is doing better , leg pain improved, able to walk few steps without pain . No chest pain or shortness of breath no cough no sputum production no nausea no vomiting no diarrhea no constipation no urinary symptoms. - Exam Vitals: Temp Pulse Resp BP Pulse Ox 97.9 F 76 20 108/65 93 07/14/19 11:20 07/14/19 11:20 07/14/19 11:20 07/14/19 11:20 07/14/19 11:20 Exam: . General - Alert and oriented x 3, no acute distress and appears comfortable HEENT - Conjunctiva clear, no nasal or oral mucosal lesions/ulcerations Heme/Lymph - No cervical or supraclavicular lymph node enlargement or tenderness. No pallor. Heart - S1S2 regular in rate and rhythm without murmurs, clicks or rubs. No peripheral edema. Radial pulses equal and strong Lungs - Unlabored breathing, clear to auscultation bilaterally without wheezes or crackles; no decrease in chest expansion Extremities - Right lower extrimity swelling , redness and tender to palpate , decrease ROM , LLE : appear edematous and is wrapped Gastrointestinal - Soft, nontender, nondistended. Unable to palpate any hepatosplenomegaly Neurological - Gait normal, muscle strength 5/5 in all four extremities, sensation intact psych - normal mood and behavior - Assessment and Plan (1) Subchondral insufficiency fracture of femoral condyle Status: Acute Assessment and Plan: Right knee Subchondral insufficiency fracture of femoral condyle Will be managed with orthopedic surgery as outpatient. no further antibiotic needed she is discharged to SNF (2) Hematoma of left lower extremity Status: Chronic Assessment and Plan: -on 05/05/2019 she had evacuation of hematoma of the left lower extremity wound , she had issues with wound healing and required wound VAC -05/26/2019 swab culture which was positive for multidrug-resistant organism Acinetobacter baumanni and MSSA and was started on Keflex plus colistin. -she finished colistin and augmentin course -she is not on antibiotics (3) Frequent falls Status: Acute Assessment and Plan: Secondary to fracture and deconditioning. Patient continuing PT/OT. (4) HTN (hypertension) Status: Chronic Assessment and Plan: BP within normal limits. No antihypertensives are currently ordered. Will continue to monitor. - Time Spent with Patient Total time spent is greater than 50% in coordination of care (as documented) at patient's floor/unit and/or counseling patient: Internal Medicine: Result - Labs CBC & Chem 7: 07/13/19 05:35 07/13/19 05:35 - ABG Interpretation ABG results: PT/INR, D-dimer PT 12.0 Seconds (9.4-12.1) 07/06/19 04:30 Consult Discharge Plan - Plan Instructions: Acute Wound Care (DC) Referrals: Bárbara Mcneal CNP [Primary Care Provider] - (Web-requested, the office will call the patient to schedule a follow up appointment. ) Denzel Chen MD [Non-Partnered Physician] - (Please schedule appt in wound care, 1-2 weeks after d/c) <Chris Nichols - Last Filed: 07/14/19 15:24> Hospitalist Progress Note - Encounter Date of Encounter: 07/14/19 - Exam Vitals: Temp Pulse Resp BP Pulse Ox 97.9 F 76 20 108/65 93 07/14/19 11:20 07/14/19 11:20 07/14/19 11:20 07/14/19 11:20 07/14/19 11:20 - Assessment and Plan (1) Subchondral insufficiency fracture of femoral condyle Status: Acute (2) Right knee pain Status: Acute (3) Hematoma of left lower extremity Status: Chronic (4) Frequent falls Status: Acute (5) HTN (hypertension) Status: Chronic (6) Delirium Status: Acute - Time Spent with Patient Total time spent is greater than 50% in coordination of care (as documented) at patient's floor/unit and/or counseling patient: Internal Medicine: Result - Labs CBC & Chem 7: 07/13/19 05:35 07/13/19 05:35 - ABG Interpretation ABG results: PT/INR, D-dimer PT 12.0 Seconds (9.4-12.1) 07/06/19 04:30 - Attending Attestation I saw evaluated and examined this patient and reviewed objective data including labs and my medical decision-making was reviewed with the Resident Physician, Jenny Jennings. I agree with the documented findings, disposition and treatment plan as described except to any changes set forth below. We independently had [id number] contact with the patient. Patient is awake and alert. Doing well today. Pain in her both lower extremities well controlled. She is stable to be discharged to skilled rehabilitation today. No further indication for antibiotics per infectious disease recommendations. Left foot left lower extremity open wound was evalu ated by surgery and recommended continued outpatient care and follow-up with wound care clinic. <Jenny Jennings I - Last Filed: 07/14/19 13:39> (1) Subchondral insufficiency fracture of femoral condyle Qualifiers: Encounter type: initial encounter Laterality: right Qualified Code(s): M84.451A - Pathological fracture, right femur, initial encounter for fracture (2) Hematoma of left lower extremity Qualifiers: Encounter type: subsequent encounter Qualified Code(s): S80.12XD - Contusion of left lower leg, subsequent encounter (4) HTN (hypertension) Qualifiers: Hypertension type: essential hypertension Qualified Code(s): I10 - Essential (primary) hypertension <Chris Nichols - Last Filed: 07/14/19 15:24> (1) Subchondral insufficiency fracture of femoral condyle Qualifiers: Encounter type: initial encounter Laterality: right Qualified Code(s): M84.451A - Pathological fracture, right femur, initial encounter for fracture (2) Right knee pain Qualifiers: Chronicity: acute Qualified Code(s): M25.561 - Pain in right knee (3) Hematoma of left lower extremity Qualifiers: Encounter type: subsequent encounter Qualified Code(s): S80.12XD - Contusion of left lower leg, subsequent encounter (5) HTN (hypertension) Qualifiers: Hypertension type: essential hypertension Qualified Code(s): I10 - Essential (primary) hypertension
== END 2019-07-14 15:10 | DRG 534 ==
LOC: 3ANU 13:32 → SUATTDRO 13:32 → INTOOBSV 13:32
PROVIDERS: ADMIT Internal Medicine Nephrology; ATTEND Student in an Organized Health Care Education/Training Program

== ENCOUNTER 2021-05-29 17:57 | Observation (INO) ==
[2021-05-29 20:55] LABS: Basophils % 0.3 %; Eosinophils % 0.2 %; Hematocrit 40.4 % (35.3-44.9); Hemoglobin 12.8 g/dL (11.5-15.4); Immature Granulocytes % 0.6 % (0-4); Lymphocytes # 1.2 K/mcL (0.6-4.6); Lymphocytes % 7.5 %; Mean Corpuscular HGB Conc 31.7 g/dL (31.6-35.5); Mean Corpuscular Hemoglobin 28.4 pg (28.0-33.3); Mean Corpuscular Volume 89.6 fL (83.0-100.0); Monocytes # 1.7 K/mcL (0.0-1.3); Monocytes % 10.6 %; Neutrophils # 12.7 K/mcL (1.6-8.9); Platelet Count 235 K/mcL (140-400); Red Blood Count 4.51 M/mcL (3.82-4.97); Red Cell Distribution Width 13.1 % (11.5-14.5); Segmented Neutrophils % 80.8 %; White Blood Count 15.7 K/mcL (4.3-11.1)
[2021-05-29 21:14] LABS: BUN/Creatinine Ratio 25 (6-26); Blood Urea Nitrogen 15 mg/dL (8-23); Calcium 9.4 mg/dL (8.6-10.3); Carbon Dioxide 21 mEq/L (23-29); Chloride 106 mEq/L (98-107); Glucose 111 mg/dL (70-105); Osmolality,Calculated 286 (280-300); Potassium 3.6 mEq/L (3.5-5.1); Sodium 137 mEq/L (136-145); eGFR For African Americans > 60 (> 60); eGFR For Non-African Americans > 60 (> 60)
[2021-05-29 21:15] LABS: Troponin I < 0.03 ng/mL (< 0.04)
[2021-05-30 00:13] LABS: Bacteria,Urine Few per hpf (None-Few); Bilirubin,Urine Negative (Negative); Blood,Urine Negative (Negative); Clarity,Urine Clear (Clear); Color,Urine Yellow (Yellow); Glucose,Urine (UA) Normal (Normal); Ketones,Urine 80 mg/dL (Negative); Leukocyte Esterase,Urine Large (Negative); Mucus,Urine Few per lpf (None-Few); Nitrite,Urine Negative (Negative); PH,Urine 6.5 pH Units (5.0-8.0); Protein,Urine Trace mg/dL (Neg-Trace); Specific Gravity,Urine 1.022 (1.010-1.025); Squamous Epithelial Cell,Urine Few per hpf (None-Few); WBC,Urine TNTC per hpf (0-3)
[2021-05-30] MEDS ORDERED: Melatonin 3 MG TABLET PO PRN (01:24)
[2021-05-30] MEDS ORDERED: Naloxone 0.4 MG/ML INJ IVP PRN (01:24)
[2021-05-30] MEDS ORDERED: *HR* Promethazine 25 MG/ML VIAL IM PRN (01:24)
[2021-05-30] MEDS ORDERED: Ondansetron 4 MG/2 ML VIAL IVP PRN (01:24)
[2021-05-30] MEDS ORDERED: Acetaminophen 325 MG TABLET PO PRN (01:24)
[2021-05-30] MEDS ORDERED: Benzonatate 100 MG CAPSULE PO PRN (01:25)
[2021-05-30] MEDS ORDERED: polyethylene glycoL 3350 17 GM POWD.PACK PO PRN (01:25)
[2021-05-30] MEDS ORDERED: Perflutren Lipid Microsphere 1.3 ML in 0.9 % Sodium Chloride 8.7 ML IVP PRN (01:26)
[2021-05-30] MEDS ORDERED: Levalbuterol 1 PUFF INHALER IH PRN (04:00)
[2021-05-30 05:10] LABS: Basophils % 0.3 %; Eosinophils # 0.1 K/mcL (0.0-0.6); Eosinophils % 0.7 %; Hematocrit 37.8 % (35.3-44.9); Hemoglobin 12.3 g/dL (11.5-15.4); Immature Granulocytes % 0.4 % (0-4); Lymphocytes # 1.1 K/mcL (0.6-4.6); Lymphocytes % 11.6 %; Mean Corpuscular HGB Conc 32.5 g/dL (31.6-35.5); Mean Corpuscular Hemoglobin 28.8 pg (28.0-33.3); Mean Corpuscular Volume 88.5 fL (83.0-100.0); Mean Platelet Volume 12.1 fL (9.4-12.4); Monocytes # 1.2 K/mcL (0.0-1.3); Monocytes % 12.4 %; Neutrophils # 7.2 K/mcL (1.6-8.9); Platelet Count 214 K/mcL (140-400); Red Blood Count 4.27 M/mcL (3.82-4.97); Red Cell Distribution Width 13.2 % (11.5-14.5); Segmented Neutrophils % 74.6 %; White Blood Count 9.6 K/mcL (4.3-11.1)
[2021-05-30 05:16] LABS: INR 1.3; Prothrombin Time 14.5 Seconds (9.4-12.1)
[2021-05-30 05:29] LABS: Alanine Aminotransferase 9 Units/L (7-52); Albumin 3.5 g/dL (3.5-5.7); Albumin/Globulin Ratio 1.3 (1.1-2.2); Alkaline Phosphatase 84 Units/L (34-104); Aspartate Amino Transferase 16 Units/L (13-39); BUN/Creatinine Ratio 20 (6-26); Blood Urea Nitrogen 13 mg/dL (8-23); Calcium 9.1 mg/dL (8.6-10.3); Carbon Dioxide 23 mEq/L (23-29); Chloride 106 mEq/L (98-107); Chol/HDL Ratio 3.3 (0-4.9); Cholesterol 156 mg/dL (< 200); Globulin 2.8 g/dL (2.4-3.5); Glucose 117 mg/dL (70-105); HDL Cholesterol 47 mg/dL (40-59); LDL Cholesterol,Calculated 102 mg/dL (< 100); Magnesium 1.7 mg/dL (1.6-2.6); Osmolality,Calculated 285 (280-300); Potassium 3.7 mEq/L (3.5-5.1); Sodium 137 mEq/L (136-145); Total Protein 6.3 g/dL (6.4-8.9); Triglycerides 33 mg/dL (< 150); eGFR For African Americans > 60 (> 60); eGFR For Non-African Americans > 60 (> 60)
[2021-05-30 08:46] LABS: Thyroid Stimulating Hormone 1.488 mcIU/mL (0.340-5.600)
[2021-05-30] MEDS ORDERED: BISOPROLOL FUMARATE 10 MG PO SCH (09:00)
[2021-05-30] MEDS ORDERED: Regadenoson 0.4 MG/5 ML SYRINGE IVP ONE (09:26)
[2021-05-30] MEDS: Furosemide 20 MG TABLET PO SCH (12:13)
[2021-05-30] MEDS: *HR* HYDROcodone/Acet 5/325 mg TABLET PO PRN (12:16)
[2021-05-30] MEDS: Fluticasone Propionate Nasal 50 MCG/SPRAY BOTTLE NS SCH ×2 (12:16→23:28)
[2021-05-30] MEDS: cefTRIAXone 1,000 MG in 0.9 % Sodium Chloride Mini Bag 100 ML IVPB SCH (17:26)
[2021-05-30] MEDS ORDERED: Loratadine 10 MG TABLET PO SCH (18:00)
[2021-05-30] MEDS: BISOPROLOL FUMARATE 10 MG PO SCH (22:02)
[2021-05-30] MEDS: Lactobacillus 1 EACH CAP.SPRINK PO SCH (22:02)
[2021-05-31 01:03] LABS: Hematocrit 36.1 % (35.3-44.9); Hemoglobin 11.3 g/dL (11.5-15.4); Mean Corpuscular HGB Conc 31.3 g/dL (31.6-35.5); Mean Corpuscular Hemoglobin 28.3 pg (28.0-33.3); Mean Corpuscular Volume 90.5 fL (83.0-100.0); Mean Platelet Volume 12.1 fL (9.4-12.4); Platelet Count 199 K/mcL (140-400); Red Blood Count 3.99 M/mcL (3.82-4.97); Red Cell Distribution Width 13.5 % (11.5-14.5); White Blood Count 8.3 K/mcL (4.3-11.1)
[2021-05-31 01:19] LABS: BUN/Creatinine Ratio 21 (6-26); Blood Urea Nitrogen 14 mg/dL (8-23); Calcium 8.7 mg/dL (8.6-10.3); Carbon Dioxide 23 mEq/L (23-29); Chloride 107 mEq/L (98-107); Glucose 97 mg/dL (70-105); Magnesium 1.9 mg/dL (1.6-2.6); Osmolality,Calculated 282 (280-300); Potassium 3.6 mEq/L (3.5-5.1); Sodium 136 mEq/L (136-145); eGFR For African Americans > 60 (> 60); eGFR For Non-African Americans > 60 (> 60)
[2021-05-31 04:19] VITALS: BP 122/74; PULSE 56; TEMP 97.8
[2021-05-31] MEDS ORDERED: Regadenoson 0.4 MG/5 ML SYRINGE IVP ONE (07:39)
[2021-05-31] MEDS ORDERED: Cholecalciferol (D-3) 1,000 UNIT (25MCG) TABLET PO SCH (09:00)
[2021-05-31] MEDS ORDERED: Multivit/Ca/Min/Fe/FA 1 TAB TABLET PO SCH (09:00)
[2021-05-31] MEDS: cefTRIAXone 1,000 MG in 0.9 % Sodium Chloride Mini Bag 100 ML IVPB SCH (09:15)
[2021-05-31] MEDS: Furosemide 20 MG TABLET PO SCH (09:16)
[2021-05-31] MEDS: *HR* HYDROcodone/Acet 5/325 mg TABLET PO PRN (09:16)
[2021-05-31] MEDS: Lactobacillus 1 EACH CAP.SPRINK PO SCH (09:20)
[2021-05-31] MEDS: Fluticasone Propionate Nasal 50 MCG/SPRAY BOTTLE NS SCH (09:29)
[2021-05-31] MEDS: BISOPROLOL FUMARATE 10 MG PO SCH (09:29)
[2021-05-31 11:05] VITALS: O2SAT 96
== END 2021-05-31 14:36 | disposition home health service (06) ==
LOC: 3ANU 17:57 → EMEROOARM 17:57 → SUATTDRO 05-30 01:15 → 3ANU 05-30 01:50
PROVIDERS: ADMIT Family Medicine; ATTEND Internal Medicine